=== PATIENT | male | born 1955 | race Caucasian/White ===

== ENCOUNTER → 2016-04-09 | Outpatient (CLI) | payer OTHER ==
[~2016-04-09] MED LIST: AMLO-110 PO; AMLO-114 PO; ASPCH81X PO; CARV6.252 PO; CEPH500C PO; CRG125 PO; CRG25 PO; CYCL10TA6 PO; FNTTP50 TOP; GABA1CAP5 PO; GLC/500 PO; GLIP-199 PO; HYDR-4079 PO; HYDR25TA4 PO; INSDGI SC; INSDGIPEN SC; LIDO2SOL17 TD; LISI40TA PO; LPT/20 PO; LSN20 PO; METF1TAB53 PO; NVLGI/PEN SC; NVLGIPEN SC; OXYC-106 PO; SIMV20TA2 PO
--- NOTE | 2016-04-09 12:34 | DIAGNOSTIC IMAGING REPORT ---
MRI OF THE RIGHT SHOULDER WITHOUT CONTRAST CLINICAL HISTORY: Right shoulder pain. Evaluate for rotator cuff tear. COMPARISON STUDY: MRI the right shoulder March 18, 2015 and right shoulder radiographs December 22, 2014. TECHNIQUE: Utilizing a 1.5 Cheryl magnet and dedicated coil, multiplanar, multiecho imaging of the right shoulder was performed without intravenous or intra-articular contrast. FINDINGS: Multiple foci of susceptibility artifact represent postsurgical change. Alignment of the right shoulder is anatomic. There is no fracture. No significant marrow edema or marrow replacement is present. There are subchondral cystic change within the greater tuberosity. There is moderate AC joint arthritis. There is mild right glenohumeral joint arthritis. A suspected anchor is noted along the proximal right humeral shaft for the long head of the biceps tendon. The more proximal long head biceps tendon is irregular with signal abnormality. This suggests tendinopathy with a tear which is at least high-grade partial thickness. The glenoid labrum is suboptimally assessed on this nonarthrogram exam but the superior and posterior labrum is truncated. This is similar to prior exam. There has been interval development of a full-thickness supraspinatus tear with 2 cm of tendon retraction. There is minimal muscular atrophy. There is tendinopathy of supraspinatus and infraspinatus. There is a high-grade partial-thickness tear of the distal infraspinatus along the articular surface. Teres minor is intact. Subscapularis is suboptimally assessed on this exam but there is no evidence for a full-thickness tear of subscapularis. There may be a partial thickness tear of subscapularis with fraying. No mass or fluid collection is shown. There is a small amount of fluid within the subacromial/subdeltoid bursa. IMPRESSION: 1. Interval development of a full-thickness supraspinatus tear with tendon retraction and minimal muscular atrophy. High grade partial-thickness distal infraspinatus tear. 2. Moderate right AC joint arthrosis and mild glenohumeral joint arthrosis. 3. Suspected tendinopathy with at least high-grade partial-thickness tear of the proximal long head of the biceps tendon. 4. Truncated posterior superior labrum which is similar to prior exam. Electronically signed by: Leighton Boothe M.D. 04/09/2016 12:33 PM Dictated Date/Time: 04/09/2016 12:23 PM
== END | disposition home or self-care (01) ==
LOC: C.MRIBC 10:40
PROVIDERS: ATTEND Orthopaedic Surgery
DX: M25.511 Pain in right shoulder (principal)

== ENCOUNTER → 2016-05-08 | Outpatient (CLI) | payer OTHER ==
[2016-05-08 12:09] LABS: BASO % 0.3 %; BASO ABS # 0.03 K/uL (0-0.2); COMPLETE YES; HEMATOCRIT 35.1 % (42-52); IG% 0.5 %; LYMPH % 14.9 %; LYMPH ABS # 1.37 K/uL (1.2-3.4); MEAN CELL VOLUME 82.6 fL (80-100); MEAN CORPUSCULAR HEMOGLOBIN 27.8 pg (25-34); MEAN CORPUSCULAR HGB CONC 33.6 g/dl (32-36); MEAN PLATELET VOLUME 10.4 fL (7.4-10.4); MONO % 9.6 %; NEUT % 70.7 %; PLATELET COUNT 308 K/uL (130-400); RED BLOOD COUNT 4.25 M/uL (4.7-6.1); WHITE BLOOD COUNT 9.17 K/uL (4.8-10.8)
[2016-05-08 12:43] LABS: BLOOD UREA NITROGEN 22 mg/dl (7-18); BUN/CREATININE RATIO 13.9 (10-20); CALCIUM 9.1 mg/dl (8.5-10.1); CARBON DIOXIDE 23 mmol/L (21-32); CHLORIDE 102 mmol/L (98-107); GLUCOSE 264 mg/dl (70-99); POTASSIUM 4.5 mmol/L (3.5-5.1); SODIUM 137 mmol/L (136-145)
== END | disposition home or self-care (01) ==
LOC: C.CPL 10:45
PROVIDERS: ATTEND Orthopaedic Surgery
DX: M75.121 Complete rotator cuff tear or rupture of right shoulder, not specified as traumatic (principal); Z01.812 Encounter for preprocedural laboratory examination; Z01.810 Encounter for preprocedural cardiovascular examination

== ENCOUNTER → 2016-05-23 | Day surgery (SDC) | payer OTHER ==
[2016-05-10 14:53] VITALS: BMI 31.0
[~2016-05-23] VITALS: Ht 188 cm; Wt 109.1 kg
[~2016-05-23] MED LIST changes: -AMLO-110 PO; -LIDO2SOL17 TD; +LIDOCAINE HCL 2% 2 ML VIAL (20MG/ML) ONE; +MIDAZOLAM HCL 1 MG/ML 2ML VIAL ONE; +ONDANSETRON INJ 2 MG/ML 2 ML VIAL ONE; +PROPOFOL IV EMULSION 10 MG/ML 20 ML VIAL IV ONE; -SIMV20TA2 PO; +SODIUM CHLORIDE 0.9% 500ML 500 ML IV ONE
[2016-05-23 10:06] VITALS: Ht 188 cm; Wt 109.1 kg
--- NOTE | 2016-05-23 11:47 | GI REPORT ---
Procedure Date: 05/23/2016 11:06 AM THIS REPORT HAS BEEN AMENDED Addendum Number: 1 Addendum Date: 05/23/2016 11:59:37 AM No specimens were collected during this procedure, and therefore, no pathology is pending. Repeat colonoscopy in 5 years. Procedure: Colonoscopy Indications: Screening for colorectal malignant neoplasm Medicines: Monitored Anesthesia Care Complications: No immediate complications. Estimated Blood Loss: Estimated blood loss: none. Procedure: Pre-Anesthesia Assessment: - Prior to the procedure, a History and Physical was performed, and patient medications and allergies were reviewed. The patient's tolerance of previous anesthesia was also reviewed. The risks and benefits of the procedure and the sedation options and risks were discussed with the patient. All questions were answered, and informed consent was obtained. Prior Anticoagulants: The patient has taken aspirin, last dose was 1 day prior to procedure. ASA Grade Assessment: III - A patient with severe systemic disease. After reviewing the risks and benefits, the patient was deemed in satisfactory condition to undergo the procedure. After I obtained informed consent, the scope was passed under direct vision. Throughout the procedure, the patient's blood pressure, pulse, and oxygen saturations were monitored continuously. The scope was introduced through the anus and advanced to the terminal ileum. The colonoscopy was performed without difficulty. The patient tolerated the procedure well. The quality of the bowel preparation was good. The ileocecal valve, appendiceal orifice, and rectum were photographed. Findings: Multiple small-mouthed diverticula were found in the sigmoid colon. Non-bleeding internal hemorrhoids were found during retroflexion. The hemorrhoids were small. Impression: - Diverticulosis in the sigmoid colon. - Non-bleeding internal hemorrhoids. - No specimens collected. Recommendation: - Resume previous diet. - Continue present medications. - Repeat colonoscopy for surveillance based on pathology results. - Return to primary care physician as previously scheduled. Scot Mira Gagnon, DO 05/23/2016 11:48:21 AM This report has been signed electronically. Note Initiated On: 05/23/2016 11:06 AM I attest to the content of the Intraoperative Record and orders documented therein, exceptions below Scot Meyers Kalin, DO 05/23/2016 12:00:50 PM This report has been signed electronically.
--- NOTE | 2016-05-23 11:50 | Endo History and Physical ---
History & Physical Date of Service: May 23, 2016. Chief Complaint: SCREENING Referring Physician: DR ANG History of Present Illness 60 yo CM who presents for screening colonoscopy. Past Medical History Diabetes, Hypertension Past Surgical History Hx Cardiac Surgery: No Hx Internal Defibrillator: No Hx Pacemaker: No Hx Abdominal Surgery: No Hx of Implantable Prosthesis: No Hx Post-Op Nausea and Vomiting: No Hx Cancer Surgery: No Hx Thoracic Surgery: No Hx Orthopedic: Yes (LEFT KNEE ARTHROSCOPY X 2, TRIGGER FINGER X 2,WRIST GANGLION CYSTS REMOVED ) Hx Urinary Tract Surgery: Yes (LITHOTRIPSY) Family History None Social History Smoking Status: Never Smoker Hx Substance Use: No Hx Alcohol Use: Yes (RARELY) Allergies Coded Allergies: NO KNOWN DRUG ALLERGIES (Verified Allergy, Unknown, ., 05/23/16) Current Medications Reported Home Medications Medications Dose Route/Sig Max Daily Dose Days Date Category Dose Instructions Glucophage Ext Rel (Metformin Hcl) 1,000 Mg Tab 1,000 Mg PO BID 05/10/16 Reported Zestril (Lisinopril) 40 Mg Tab 40 Mg PO QAM 05/10/16 Reported Lantus (Insulin Glargine) 100 Unit/Ml Inj 35 Units SC AMPM 05/10/16 Reported Percocet 10MG/325MG (Oxycodone/Acetaminophen) Tab 1 Tab PO Q6H PRN 05/10/16 Reported Hctz (Hydrochlorothiazide) 25 Mg Tab 25 Mg PO QAM 05/10/16 Reported Glipizide Er (Glipizide) 10 Mg Tab 1 Tab PO BID 90 05/10/16 Reported Neurontin (Gabapentin) 400 Mg Cap 1 Cap PO TID 30 05/10/16 Reported TAKES 1 TAB IN AM AND 1 IN AFTERNOON AND 2 TAB IN PM Coreg (Carvedilol) 6.25 Mg Tab 2 Tab PO BID 05/10/16 Reported Norvasc (Amlodipine Besylate) 10 Mg Tab 10 Mg PO QAM 05/10/16 Reported Aspirin Chewable (Aspirin) 81 Mg Chew 81 Mg PO QAM 03/30/15 Reported Vital Signs Weight (Kilograms): 109.09 Height (Feet): 6 Height (Inches): 2 Date Time Temp Pulse Resp B/P Pulse Ox O2 Delivery O2 Flow Rate FiO2 05/23/16 10:19 37 77 20 158/77 95 Room Air Physical Exam General Appearance: WD/WN, no apparent distress Respiratory/Chest: Auscultation: breath sounds normal Cardiovascular: Heart Auscultation: RRR Abdomen: Bowel Sounds: normal Inspection & Palpation: soft, non-distended, no tenderness, guarding & rebound Assessment and Plan Assessment: 60 yo CM who presents for screening colonoscopy. Plan: Proceed with colonoscopy.
--- NOTE | 2016-05-23 11:51 | Discharge Instructions ---
Endoscopy Patient Instructions Date / Procedure(s) Performed May 23, 2016. Colonoscopy Allergy Information Coded Allergies: NO KNOWN DRUG ALLERGIES (Verified Allergy, Unknown, ., 05/23/16) Discharge Date / Findings May 23, 2016. Diverticulosis Internal hemorrhoids Medication Instructions Stopped Medication(s): PT DOESN'T REMEMBER OK to resume all medications today as prescribed Reported Home Medications Medications Dose Route/Sig Max Daily Dose Days Date Category Dose Instructions Glucophage Ext Rel (Metformin Hcl) 1,000 Mg Tab 1,000 Mg PO BID 05/10/16 Reported Zestril (Lisinopril) 40 Mg Tab 40 Mg PO QAM 05/10/16 Reported Lantus (Insulin Glargine) 100 Unit/Ml Inj 35 Units SC AMPM 05/10/16 Reported Percocet 10MG/325MG (Oxycodone/Acetaminophen) Tab 1 Tab PO Q6H PRN 05/10/16 Reported Hctz (Hydrochlorothiazide) 25 Mg Tab 25 Mg PO QAM 05/10/16 Reported Glipizide Er (Glipizide) 10 Mg Tab 1 Tab PO BID 90 05/10/16 Reported Neurontin (Gabapentin) 400 Mg Cap 1 Cap PO TID 30 05/10/16 Reported TAKES 1 TAB IN AM AND 1 IN AFTERNOON AND 2 TAB IN PM Coreg (Carvedilol) 6.25 Mg Tab 2 Tab PO BID 05/10/16 Reported Norvasc (Amlodipine Besylate) 10 Mg Tab 10 Mg PO QAM 05/10/16 Reported Aspirin Chewable (Aspirin) 81 Mg Chew 81 Mg PO QAM 03/30/15 Reported Provider Instructions Activity Restrictions - No exercising or heavy lifting for 24 hours. - Do not drink alcohol the day of the procedure. - Do not drive a car or operate machinery until the day after the procedure. - Do not make any important decisions or sign important papers in 24 hours after the procedure. Following Day: - Return to full activity which may include returning to work/school. Diet Start your diet with liquids and light foods (jello, soup, juice, toast). Then eat your usual diet if not nauseated. Treatment For Common After Affects For mild abdominal pain, bloating, or excessive gas: - Rest - Eat lightly - Lie on right side Follow-Up Information Follow-up with DR ANG as scheduled Anesthesia Information What You Should Know You have had a procedure that required some medicine to reduce anxiety and discomfort. This treatment is called moderate sedation. After receiving the treatment, you may be sleepy, but you will be able to breathe on your own. The effects of the treatment may last for several hours. Follow these instructions along with Activity/Diet recommendations noted above: * Do NOT do anything where dizziness or clumsiness would be dangerous. * Rest quietly at home today, then you can be up and about tomorrow. * Have a responsible person stay with you the rest of today. * You may have had an I.V. today. If so, you may take the dressing off later today. Recommendations Call your doctor if: * Trouble breathing * Continuous vomiting for more than 24 hours * Temperature above 101 degrees * Severe abdominal pain or bloating * Pain not relieved by pain medicine ordered * There is increased drainage or redness from any incision * A large amount of rectal bleeding greater than 2-3 tablespoons. (If you had a polyp/s removed or have hemorrhoids, a small amount of blood - from the rectum is to be expected.) * You have any unanswered questions or concerns. IN THE EVENT OF A SERIOUS EMERGENCY, GO TO THE NEAREST EMERGENCY ROOM Your discharge instructions were prepared by provider Scot Gagnon. Patient Instructions Signature Page Leon Green Patient (or Guardian) Signature/Date: I have read and understand the instructions given to me by my caregivers. Caregiver/RN/Doctor Signature/Date: The above-named patient and/or guardian has received patient instructions on this date. + Original Patient Signature Page (only) stays with chart. Please make copy for patient.
[2016-05-23 12:19] VITALS: BP 160/85; PULSE 79; O2SAT 95
--- NOTE | 2016-05-23 15:18 | Anesthesiology Progress Note ---
Anesthesia Post Op Note Date & Time May 23, 2016 at 15:17 Vital Signs Pain Intensity: 0 Vital Signs Past 12 Hours Date Time Temp Pulse Resp B/P Pulse Ox O2 Delivery O2 Flow Rate FiO2 05/23/16 12:19 79 20 160/85 95 Room Air 05/23/16 12:04 78 20 154/82 95 Room Air 05/23/16 11:49 75 20 142/82 96 Room Air 05/23/16 10:19 37 77 20 158/77 95 Room Air Notes Mental Status: alert / awake / arousable, participated in evaluation Pt Amnestic to Procedure: Yes Nausea / Vomiting: adequately controlled Pain: adequately controlled Airway Patency, RR, SpO2: stable & adequate BP & HR: stable & adequate Hydration State: stable & adequate Anesthetic Complications: no major complications apparent
== END | disposition home or self-care (01) ==
LOC: C.GI 09:54
PROVIDERS: ATTEND Internal Medicine
DX: Z12.11 Encounter for screening for malignant neoplasm of colon (principal); K57.30 Diverticulosis of large intestine without perforation or abscess without bleeding; K64.8 Other hemorrhoids; Z79.4 Long term (current) use of insulin; Z98.890 Other specified postprocedural states; Z79.82 Long term (current) use of aspirin

== ENCOUNTER 2016-05-25 16:32 | Inpatient (IN) | payer OTHER ==
[~2016-05-25] VITALS: Ht 188 cm; Wt 108.6 kg
[~2016-05-25 16:32] MED LIST changes: -CEPH500C PO; -CRG125 PO; -CRG25 PO; -CYCL10TA6 PO; -FNTTP50 TOP; -GLC/500 PO; -HYDR-4079 PO; -INSDGIPEN SC; -LIDOCAINE HCL 2% 2 ML VIAL (20MG/ML) ONE; -LPT/20 PO; -LSN20 PO; -MIDAZOLAM HCL 1 MG/ML 2ML VIAL ONE; -NVLGI/PEN SC; -NVLGIPEN SC; -ONDANSETRON INJ 2 MG/ML 2 ML VIAL ONE; -PROPOFOL IV EMULSION 10 MG/ML 20 ML VIAL IV ONE; -SODIUM CHLORIDE 0.9% 500ML 500 ML IV ONE
[2016-05-25] MEDS ORDERED: LPT/20 PO (16:54)
[2016-05-25 17:16] LABS: HEMATOCRIT 33.8 % (42-52); MEAN CELL VOLUME 82.8 fL (80-100); MEAN CORPUSCULAR HEMOGLOBIN 27.7 pg (25-34); MEAN CORPUSCULAR HGB CONC 33.4 g/dl (32-36); MEAN PLATELET VOLUME 9.7 fL (7.4-10.4); PLATELET COUNT 312 K/uL (130-400); RED BLOOD COUNT 4.08 M/uL (4.7-6.1)
--- NOTE | 2016-05-25 17:21 | DIAGNOSTIC IMAGING REPORT ---
CHEST ONE VIEW PORTABLE CLINICAL HISTORY: sob dyspnea COMPARISON STUDY: 03/23/2015 FINDINGS: The bones soft tissues and hemidiaphragms are normal. The cardiomediastinal silhouette is normal. The lungs are clear. The pulmonary vasculature is normal. IMPRESSION: Negative chest. Electronically signed by: Jerald Rivera M.D. 05/25/2016 5:20 PM Dictated Date/Time: 05/25/2016 5:20 PM
[2016-05-25 17:34] LABS: BUN/CREATININE RATIO 11.1 (10-20); CALCIUM 8.7 mg/dl (8.5-10.1); CREATININE 1.5 mg/dl (0.60-1.40)
[2016-05-25 17:37] LABS: ALB/GLOB RATIO 0.9 (0.9-2)
[2016-05-25 17:54] LABS: BASO % 0.3 %; BASO ABS # 0.03 K/uL (0-0.2); COMPLETE YES; EOS % 3.3 %; IG% 0.6 %; LYMPH % 14.3 %; LYMPH ABS # 1.29 K/uL (1.2-3.4); MONO % 10.3 %; NEUT % 71.2 %
[2016-05-25 17:59] LABS: INR 0.9 (0.9-1.1); PARTIAL THROMBOPLASTIN RATIO 0.9
--- NOTE | 2016-05-25 18:13 | EMERGENCY ROOM VISIT NOTE ---
History First contact with patient: 17:01 Chief Complaint: SHORTNESS OF BREATH Stated Complaint: SOB Nursing Triage Summary: PT REPORTS SOB X2 WEEKS. LAST NIGHT SYMPTOMS WORSENED, PT VERBALIZES SOB AT REST, WHEEZY, UNABLE TO SLEEP, AND SWELLING IN LEGS. PT SAW PCP TODAY AND WAS SENT HERE FOR FURTHER EVAL. History of Present Illness The patient is a 60 year old male who presents to the Emergency Room with complaints of shortness of breath and leg swelling. The patient states that for the last 2 weeks. The patient states that he has significant dyspnea on exertion. He states that he has noticed bilateral extremity swelling off and on. He states that he just developed significant over the last several days right leg swelling. The patient states that he felt as though he was wheezing last night and had significant difficulty breathing. He states he had to sleep in a recliner. He rates his discomfort a 7/10. He denies any earache, sore throat, cough, fever. He denies any abdominal pain, nausea, vomiting, diarrhea. He denies any history of pulmonary disease. He denies any history of cardiac disease. He had a normal stress test one year ago. The patient states that his father had a myocardial infarction in his 50s. He states his mother had 2 myocardial infarctions and has had a blood clot in her leg. Review of Systems A 10 system review of systems was completed with positives and pertinent negatives listed in the HPI. Past Medical/Surgical History Medical Problems: (1) Diabetes mellitus (2) KAUR (dyspnea on exertion) (3) Fluid overload (4) HTN (hypertension) (5) Hypercholesterolemia Surgical Problems: (1) Status post lateral meniscus repair Social History Smoking Status: Never Smoker Drug Use: none Marital Status: Occupation Status: disabled Current/Historical Medications Scheduled Amlodipine (Norvasc), 10 MG PO QAM Aspirin (Aspirin Chewable), 81 MG PO QAM Atorvastatin (Atorvastatin Calcium), 20 MG PO QPM Carvedilol (Coreg), 2 TAB PO BID Gabapentin (Neurontin), 1 CAP PO TID Glipizide (Glipizide Er), 1 TAB PO BID Hydrochlorothiazide (Hctz), 25 MG PO QAM Insulin Glargine (Lantus), 35 UNITS SC AMPM Lisinopril (Zestril), 40 MG PO QAM Metformin Hcl (Glucophage Ext Rel), 1,000 MG PO BID Scheduled PRN Oxycodone/Acetaminophen 10MG/325MG (Percocet 10MG/325MG), 1 TAB PO Q6H PRN for Pain Allergies Coded Allergies: NO KNOWN DRUG ALLERGIES (Verified Allergy, Unknown, ., 05/25/16) Physical Exam Vital Signs Date Time Temp Pulse Resp B/P Pulse Ox O2 Delivery O2 Flow Rate FiO2 05/25/16 21:51 36.9 82 16 161/84 96 05/25/16 21:38 82 05/25/16 21:31 82 16 161/84 96 Room Air 05/25/16 20:04 83 16 142/72 94 Room Air 05/25/16 18:50 84 16 162/80 93 Room Air 05/25/16 17:54 82 22 171/80 93 Room Air 05/25/16 17:15 89 05/25/16 17:02 94 Room Air 05/25/16 16:35 36.9 94 24 177/79 94 Room Air Physical Exam VITALS: Vitals are noted on the nurse's note and reviewed by myself. Vital signs stable. The patient is afebrile. GENERAL: This is a 60-year-old male, in no acute distress, nondiaphoretic, well- developed well-nourished. SKIN: The patient has bilateral pitting edema to the lower extremities. There is no tenting of the skin. Capillary reflex less than 2 seconds. HEAD: Normocephalic atraumatic. EARS: The external ears are normal in appearance. EYES: Pupils equal round and reactive to light and accommodation. Conjunctivae without injection, sclerae without icterus. Extraocular movements intact. NOSE: Patent, turbinates without inflammation or discharge. MOUTH: Mucous membranes moist. Tonsils are not enlarged. Pharynx without erythema or exudate. Uvula midline. Airway patent. Tongue does not deviate. NECK: Supple without nuchal rigidity. No lymphadenopathy. No thyromegaly. Cervical spine is nontender. No JVD. HEART: Regular rate and rhythm. There is a very subtle murmur noted. LUNGS: Clear to auscultation bilaterally without wheezes, rales or rhonchi. No retractions or accessory muscle use. ABDOMEN: Positive bowel sounds x 4. Soft, nontender, without masses or organomegaly. MUSCULOSKELETAL: There is moderate bilateral lower extremity pitting edema Full range of motion in all extremities. No tenderness to palpation. Normal gait. Strength 5/5 throughout. NEURO: Patient was alert and oriented to person place and time. Normal sensation to light and sharp touch. Deep tendon reflexes 2+ throughout. No focal neurological deficits. Medical Decision & Procedures ER Provider Diagnostic Interpretation: BILATERAL LOWER EXTREMITY VENOUS DOPPLER HISTORY: Pain. Edema. lower leg pain and swelling COMPARISON STUDY: None. FINDINGS: There is normal compressibility, flow, and augmentation within the bilateral lower extremity deep venous systems. IMPRESSION: No DVT within the right or left lower extremity. CHEST ONE VIEW PORTABLE CLINICAL HISTORY: sob dyspnea COMPARISON STUDY: 03/23/2015 FINDINGS: The bones soft tissues and hemidiaphragms are normal. The cardiomediastinal silhouette is normal. The lungs are clear. The pulmonary vasculature is normal. IMPRESSION: Negative chest. Laboratory Results 05/25/16 16:55 Red Blood Count 4.08, Mean Corpuscular Volume 82.8, Mean Corpuscular Hemoglobin 27.7, Mean Corpuscular Hemoglobin Concent 33.4, Mean Platelet Volume 9.7, Neutrophils (%) (Auto) 71.2, Lymphocytes (%) (Auto) 14.3, Monocytes (%) (Auto) 10.3, Eosinophils (%) (Auto) 3.3, Basophils (%) (Auto) 0.3, Neutrophils # (Auto ) 6.40, Lymphocytes # (Auto) 1.29, Monocytes # (Auto) 0.93, Eosinophils # (Auto ) 0.30, Basophils # (Auto) 0.03 05/25/16 16:55 Test 05/25/16 16:55 05/25/16 21:20 White Blood Count 9.00 K/uL (4.8-10.8) Red Blood Count 4.08 M/uL (4.7-6.1) Hemoglobin 11.3 g/dL (14.0-18.0) Hematocrit 33.8 % (42-52) Mean Corpuscular Volume 82.8 fL (80-100) Mean Corpuscular Hemoglobin 27.7 pg (25-34) Mean Corpuscular Hemoglobin Concent 33.4 g/dl (32-36) Platelet Count 312 K/uL (130-400) Mean Platelet Volume 9.7 fL (7.4-10.4) Neutrophils (%) (Auto) 71.2 % Lymphocytes (%) (Auto) 14.3 % Monocytes (%) (Auto) 10.3 % Eosinophils (%) (Auto) 3.3 % Basophils (%) (Auto) 0.3 % Neutrophils # (Auto) 6.40 K/uL (1.4-6.5) Lymphocytes # (Auto) 1.29 K/uL (1.2-3.4) Monocytes # (Auto) 0.93 K/uL (0.11-0.59) Eosinophils # (Auto) 0.30 K/uL (0-0.5) Basophils # (Auto) 0.03 K/uL (0-0.2) RDW Standard Deviation 42.9 fL (36.4-46.3) RDW Coefficient of Variation 14.3 % (11.5-14.5) Immature Granulocyte % (Auto) 0.6 % Immature Granulocyte # (Auto) 0.05 K/uL (0.00-0.02) Red Blood Cell Morphology Unremarkable Prothrombin Time 10.0 SECONDS (9.0-12.0) Prothromb Time International Ratio 0.9 (0.9-1.1) Activated Partial Thromboplast Time 24.6 SECONDS (21.0-31.0) Partial Thromboplastin Ratio 0.9 D-Dimer 1230 ug/L FEU (0-500) Anion Gap 9.0 mmol/L (3-11) Est Creatinine Clear Calc Drug Dose 70.6 ml/min Estimated GFR () 57.8 Estimated GFR (Non- 49.9 BUN/Creatinine Ratio 11.1 (10-20) Calcium Level 8.7 mg/dl (8.5-10.1) Total Bilirubin 0.2 mg/dl (0.2-1) Aspartate Amino Transf (AST/SGOT) 21 U/L (15-37) Alanine Aminotransferase (ALT/SGPT) 36 U/L (12-78) Alkaline Phosphatase 69 U/L (45-117) Pro-B-Type Natriuretic Peptide 365 pg/ml (0-900) Total Protein 7.1 gm/dl (6.4-8.2) Albumin 3.4 gm/dl (3.4-5.0) Globulin 3.7 gm/dl (2.5-4.0) Albumin/Globulin Ratio 0.9 (0.9-2) Total Creatine Kinase 221 U/L (39-308) Creatine Kinase MB 5.3 ng/ml (0.5-3.6) Creatine Kinase MB Ratio 2.4 (0-3.0) Troponin I < 0.015 ng/ml (0-0.045) Medications Administered Medications (Trade) Dose Ordered Sig/Marko Route Start Time Stop Time Status Last Admin Dose Admin Furosemide (Lasix Inj) 40 mg NOW STAT IV 05/25/16 20:40 05/25/16 21:21 DC 05/25/16 21:34 40 MG Potassium Chloride (Klor-Con M10) 40 meq NOW STAT PO 05/25/16 20:40 05/25/16 21:21 DC 05/25/16 21:33 40 MEQ Procedure The patient was monitored on a groundwater monitoring technician. They maintained a normal sinus rhythm without ectopy. ECG Indication: SOB/dyspnea Rate (beats per minute): 89 Rhythm: normal sinus Findings: no acute ischemic change Change: no significant change ED Course The patient was seen and examined. Previous visits were reviewed. The patient does not have a fever or leukocytosis. He has a mild anemia. His creatinine is 1.5 which is close to his baseline. Troponin is not elevated. BNP is not elevated. INR is 0.9. D-dimer was elevated. Chest x-ray does not reveal any acute abnormality bilateral lower extremity venous Dopplers were negative for DVT the patient presents to the emergency department with dyspnea on exertion and orthopnea. The patient states he has also had bilateral extremity swelling. He does have fairly significant pitting edema. He does seem to have a very faint murmur on auscultation and states he does not recall any history of murmur. Although the d-dimer was elevated, his creatinine is also elevated at 1.5. At this time, CT of the chest for PE will be deferred. A VQ scan may be considered in the near future. This may represent heart failure. The patient denies any history of similar. The patient with benefit from further evaluation and management in the hospital. The case was discussed with Dr. Silva and he will evaluate the patient. The case was discussed with Dr. Azevedo who agrees with the assessment and treatment plan. Medical Decision DIFFERENTIAL DIAGNOSIS: Aortic dissection, myocarditis, pericarditis, cervical disc disease, costochondritis, herpes zoster, rib fracture, pleuritis, pneumonia , pulmonary embolus, tension pneumothorax, anxiety disorder, somatoform disorder , choledocholithiasis, status, esophagitis, esophageal spasm, esophageal reflux , esophageal rupture, pancreatitis, peptic ulcer disease, cardiac ischemia, ST elevation SC, acute coronary syndrome, arrhythmia, coronary artery vasospasm. vavular heart disease, coronary artery disease, among others. Impression Primary Impression: KAUR (dyspnea on exertion) Additional Impression: Lower extremity edema Departure Information Referrals Tran Harris DO (PCP) Patient Instructions [facility] Problem Qualifiers
--- NOTE | 2016-05-25 20:08 | DIAGNOSTIC IMAGING REPORT ---
BILATERAL LOWER EXTREMITY VENOUS DOPPLER HISTORY: Pain. Edema. lower leg pain and swelling COMPARISON STUDY: None. FINDINGS: There is normal compressibility, flow, and augmentation within the bilateral lower extremity deep venous systems. IMPRESSION: No DVT within the right or left lower extremity. Electronically signed by: Jerald Rivera M.D. 05/25/2016 8:06 PM Dictated Date/Time: 05/25/2016 8:06 PM
[2016-05-25] MEDS ORDERED: POTASSIUM CHLORIDE 10 MEQ TABCR PO STA (20:40)
[2016-05-25] MEDS ORDERED: FUROSEMIDE 40 MG/4 ML VIAL IV STA (20:40)
[2016-05-25] MEDS ORDERED: GLUCOSE 40% GEL 15 GM TUBE PO PRN (20:45)
[2016-05-25] MEDS ORDERED: ZOLPIDEM TARTRATE 5 MG TAB PO PRN (20:45)
[2016-05-25] MEDS ORDERED: ACETAMINOPHEN 325 MG TAB PO PRN (20:45)
[2016-05-25] MEDS ORDERED: GLUCAGON FOR INJ 1 MG VIAL SQ PRN (20:45)
[2016-05-25] MEDS ORDERED: DEXTROSE 50% 50 ML SYR IV PRN (20:45)
[2016-05-25] MEDS ORDERED: NITROGLYCERIN 0.4 MG SL PER TAB CHARGE SL PRN (20:45)
[2016-05-25] MEDS ORDERED: ONDANSETRON INJ 2 MG/ML 2 ML VIAL IV PRN (20:45)
[2016-05-25] MEDS ORDERED: GLUCOSE 10 TABS/TUBE PO PRN (20:45)
[2016-05-25 21:48] LABS: CKMB/CK RATIO 2.4 (0-3.0)
--- NOTE | 2016-05-25 21:59 | History and Physical ---
History & Physical Date & Time of Service: May 25, 2016 at 21:50 Chief Complaint: SOB Primary Care Physician: Tran Harris DO History of Present Illness Source: patient, spouse The patient is a 60-year-old male who presents emergency department with worsening leg swelling over the past 2 weeks and more recent development of shortness of breath with dyspnea on exertion especially worse today. His left leg has been swelling on and off for a while, the right leg began to swell for the past few days. He does not move also been wheezing last night. He does not sleep well due to pain from his right shoulder shoulder and pain on his left ear. He has no history of cardiac disease or asthma. He did have a respiratory infection months ago that did clear, and he thought his symptoms might be related to a recurrent infection, but he has no fevers, chills or productive cough. He does report a 12 pound weight gain over the past 2 weeks. He denies any excessive salt in his diet although he does not watch, and he has not been very physically active due to right shoulder pain and has a proposed upcoming surgery for rotator cuff repair. Past Medical/Surgical History Medical Problems: (1) Diabetes mellitus Status: Chronic (2) HTN (hypertension) Status: Chronic (3) Hypercholesterolemia Status: Chronic Surgical Problems: (1) Status post lateral meniscus repair Status: Resolved Social History Smoking Status: Never Smoker Smokeless Tobacco Use: No Alcohol Use: socially Drug Use: none Marital Status: Housing status: lives with family Occupational Status: disabled Multi-Drug Resistant Organisms History of MDRO: No Allergies Coded Allergies: NO KNOWN DRUG ALLERGIES (Verified Allergy, Unknown, ., 05/25/16) Home Medications Scheduled Amlodipine (Norvasc), 10 MG PO QAM Aspirin (Aspirin Chewable), 81 MG PO QAM Atorvastatin (Atorvastatin Calcium), 20 MG PO QPM Carvedilol (Coreg), 2 TAB PO BID Gabapentin (Neurontin), 1 CAP PO TID Glipizide (Glipizide Er), 1 TAB PO BID Hydrochlorothiazide (Hctz), 25 MG PO QAM Insulin Glargine (Lantus), 35 UNITS SC AMPM Lisinopril (Zestril), 40 MG PO QAM Metformin Hcl (Glucophage Ext Rel), 1,000 MG PO BID Scheduled PRN Oxycodone/Acetaminophen 10MG/325MG (Percocet 10MG/325MG), 1 TAB PO Q6H PRN for Pain Review of Systems The patient denies chest pain, palpitations, cough , vision change, hearing change, sore throat, fevers, chills, sweats, weight change, fatigue, nausea, vomiting, abdominal pain, pelvic pain, blood in urine or stool, dysuria, urinary frequency or urgency, lightheadedness, dizziness, headache, memory loss , rash, abnormal bruising or bleeding, imbalance, focal or generalized weakness , numbness or tingling in arms or legs, night sweats, or allergy symptoms. The review of systems is otherwise negative other than for that already noted above, and at least 10 systems have been reviewed. Physical Exam Vital Signs Date Time Temp Pulse Resp B/P Pulse Ox O2 Delivery O2 Flow Rate FiO2 05/25/16 21:38 82 05/25/16 21:31 82 16 161/84 96 Room Air 05/25/16 20:04 83 16 142/72 94 Room Air 05/25/16 18:50 84 16 162/80 93 Room Air 05/25/16 17:54 82 22 171/80 93 Room Air 05/25/16 17:15 89 05/25/16 17:02 94 Room Air 05/25/16 16:35 36.9 94 24 177/79 94 Room Air The patient is awake, well-developed and adequately nourished, alert and oriented 3, normocephalic and atraumatic, lying in bed and in no acute distress. HEENT--PERRL, EOMI, mucous membranes and oropharynx moist. Neck--supple, no JVD or bruits, thyroid normal, trachea midline, no adenopathy. Heart--normal S1 and S2, no extra beats, no murmurs, rubs or gallops. Lungs--clear bilaterally no respiratory distress, no accessory muscle use. Abdomen--normal bowel sounds and soft, nontender and nondistended, no hernias or masses, no organomegaly. Extremities--no cyanosis, clubbing. There is bilaterally 3+ pitting Edema. There are good distal pulses b/l. Dermatologic--normal skin turgor, normal color, warm and dry, no abnormal lymph nodes, no rash. Neurologic--cranial nerves II through XII grossly intact, motor and sensory examination normal. Rheumatologic--normal range of motion, nontender, muscles and joints. Psychiatric--normal affect. Diagnostics Laboratory Results Results Past 24 Hours Test 05/25/16 16:55 05/25/16 21:20 Range/Units White Blood Count 9.00 4.8-10.8 K/uL Red Blood Count 4.08 4.7-6.1 M/uL Hemoglobin 11.3 14.0-18.0 g/dL Hematocrit 33.8 42-52 % Mean Corpuscular Volume 82.8 80-100 fL Mean Corpuscular Hemoglobin 27.7 25-34 pg Mean Corpuscular Hemoglobin Concent 33.4 32-36 g/dl Platelet Count 312 130-400 K/uL Mean Platelet Volume 9.7 7.4-10.4 fL Neutrophils (%) (Auto) 71.2 % Lymphocytes (%) (Auto) 14.3 % Monocytes (%) (Auto) 10.3 % Eosinophils (%) (Auto) 3.3 % Basophils (%) (Auto) 0.3 % Neutrophils # (Auto) 6.40 1.4-6.5 K/uL Lymphocytes # (Auto) 1.29 1.2-3.4 K/uL Monocytes # (Auto) 0.93 0.11-0.59 K/uL Eosinophils # (Auto) 0.30 0-0.5 K/uL Basophils # (Auto) 0.03 0-0.2 K/uL RDW Standard Deviation 42.9 36.4-46.3 fL RDW Coefficient of Variation 14.3 11.5-14.5 % Immature Granulocyte % (Auto) 0.6 % Immature Granulocyte # (Auto) 0.05 0.00-0.02 K/uL Red Blood Cell Morphology Unremarkable Prothrombin Time 10.0 9.0-12.0 SECONDS Prothromb Time International Ratio 0.9 0.9-1.1 Activated Partial Thromboplast Time 24.6 21.0-31.0 SECONDS Partial Thromboplastin Ratio 0.9 D-Dimer 1230 0-500 ug/L FEU Sodium Level 141 136-145 mmol/L Potassium Level 4.0 3.5-5.1 mmol/L Chloride Level 105 98-107 mmol/L Carbon Dioxide Level 27 21-32 mmol/L Anion Gap 9.0 3-11 mmol/L Blood Urea Nitrogen 17 7-18 mg/dl Creatinine 1.50 0.60-1.40 mg/dl Est Creatinine Clear Calc Drug Dose 70.6 ml/min Estimated GFR () 57.8 Estimated GFR (Non- 49.9 BUN/Creatinine Ratio 11.1 10-20 Random Glucose 158 70-99 mg/dl Calcium Level 8.7 8.5-10.1 mg/dl Total Bilirubin 0.2 0.2-1 mg/dl Aspartate Amino Transf (AST/SGOT) 21 15-37 U/L Alanine Aminotransferase (ALT/SGPT) 36 12-78 U/L Alkaline Phosphatase 69 45-117 U/L Troponin I < 0.015 < 0.015 0-0.045 ng/ml Pro-B-Type Natriuretic Peptide 365 0-900 pg/ml Total Protein 7.1 6.4-8.2 gm/dl Albumin 3.4 3.4-5.0 gm/dl Globulin 3.7 2.5-4.0 gm/dl Albumin/Globulin Ratio 0.9 0.9-2 Total Creatine Kinase 221 39-308 U/L Creatine Kinase MB 5.3 0.5-3.6 ng/ml Creatine Kinase MB Ratio 2.4 0-3.0 Diagnostic Radiology Patient Name: JARRETT HILLMAN Unit Number: [id number] Dictated: 05/25/161719 Transcribed: 05/25/161719 MS Printed Date/Time: [~ rep prt dt]/[~ rep prt tm] [~ rep ct labl] - [~ rep ct ivnm] [facility] [place] [address] Dictated: 05/25/161719 Transcribed: 05/25/161719 MS Printed Date/Time: [~ rep prt dt]/[~ rep prt tm] [~ rep ct labl] - [~ rep ct ivnm] CHEST ONE VIEW PORTABLE CLINICAL HISTORY: sob dyspnea COMPARISON STUDY: 03/23/2015 FINDINGS: The bones soft tissues and hemidiaphragms are normal. The cardiomediastinal silhouette is normal. The lungs are clear. The pulmonary vasculature is normal. IMPRESSION: Negative chest. Electronically signed by: Jerald Rivera M.D. 05/25/2016 5:20 PM Dictated Date/Time: 05/25/2016 5:20 PM The status of this report is Signed. Draft = Not yet reviewed or approved by Radiologist. Signed = Reviewed and approved by Radiologist. <AttendingPhy></AttendingPhy> <FamilyPhy>Tran Harris, DO</FamilyPhy> < PrimaryPhy>Tran Harris, DO</PrimaryPhy> <UnitNumber>[id number]</UnitNumber > <VisitNumber>[id number]</VisitNumber> <PatientName>JARRETT HILLMAN</ PatientName> <DateOfBirth>1955</DateOfBirth> <Location>[facility]</Location> < ServiceDate>05/25/16</ServiceDate> <MNE>ESINDI</MNE> <OrderingPhy>ED, PROTOCOL</ OrderingPhy> <OrderingPhyMNE>f rep ord dr zimmerman</OrderingPhyMNE> <DictatingPhyMNE> f rep dict dr zimmerman</DictatingPhyMNE> <CCListMNE>f rep ct mne</CCListMNE> < AdmittingPhyMNE>f pt admit dr zimmerman</AdmittingPhyMNE> <AttendingPhyMNE>f pt attend dr zimmerman</AttendingPhyMNE> <ConsultingPhyMNE>f pt consult dr zimmerman</ConsultingPhyMNE> <FamilyPhyMNE>f pt fam dr zimmerman</FamilyPhyMNE> <OtherPhyMNE>f pt other dr zimmerman</OtherPhyMNE> < PrimaryPhyMNE>f pt prim care dr zimmerman</PrimaryPhyMNE> <ReferringPhyMNE>f pt referring dr zimmerman</ReferringPhyMNE> Patient Name: JARRETT HILLMAN Unit Number: [id number] Dictated: 05/25/162005 Transcribed: 05/25/162005 MS Printed Date/Time: [~ rep prt dt]/[~ rep prt tm] [~ rep ct labl] - [~ rep ct ivnm] [facility] [place] [place] [address] Dictated: 05/25/162005 Transcribed: 03/24/17 2006 MS Printed Date/Time: [~ rep prt dt]/[~ rep prt tm] [~ rep ct labl] - [~ rep ct ivnm] BILATERAL LOWER EXTREMITY VENOUS DOPPLER HISTORY: Pain. Edema. lower leg pain and swelling COMPARISON STUDY: None. FINDINGS: There is normal compressibility, flow, and augmentation within the bilateral lower extremity deep venous systems. IMPRESSION: No DVT within the right or left lower extremity. Electronically signed by: Jerald Rivera M.D. 05/25/2016 8:06 PM Dictated Date/Time: 05/25/2016 8:06 PM The status of this report is Signed. Draft = Not yet reviewed or approved by Radiologist. Signed = Reviewed and approved by Radiologist. <AttendingPhy></AttendingPhy> <FamilyPhy>Tran Harris DO</FamilyPhy> < PrimaryPhy>Tran Harris, DO</PrimaryPhy> <UnitNumber>[id number]</UnitNumber > <VisitNumber>[id number]</VisitNumber> <PatientName>JARRETT HILLMAN</ PatientName> <DateOfBirth>1955</DateOfBirth> <Location>C[facility]EDC</Location> < ServiceDate>05/25/16</ServiceDate> <MNE>ESINDI</MNE> <OrderingPhy>Allie Encinas PA-C</OrderingPhy> <OrderingPhyMNE>f rep ord dr zimmerman</OrderingPhyMNE > <DictatingPhyMNE>f rep dict dr zimmerman</DictatingPhyMNE> <CCListMNE>f rep ct mne</ CCListMNE> <AdmittingPhyMNE>f pt admit dr zimmerman</AdmittingPhyMNE> <AttendingPhyMNE >f pt attend dr zimmerman</AttendingPhyMNE> <ConsultingPhyMNE>f pt consult dr zimmerman</ConsultingPhyMNE> <FamilyPhyMNE>f pt fam dr zimmerman</FamilyPhyMNE> <OtherPhyMNE>f pt other dr zimmerman</OtherPhyMNE> < PrimaryPhyMNE>f pt prim care dr mne</PrimaryPhyMNE> <ReferringPhyMNE>f pt referring dr zimmerman</ReferringPhyMNE> EKG EKG shows normal sinus rhythm at 89 bpm, there are no acute ST-T changes. Impression Assessment and Plan Shortness of breath/lower extremity edema/12 pound weight gain--the patient will be admitted to the telemetry unit for serial cardiac enzymes, cardiac rhythm monitoring and a 2-D echocardiogram with Dopplers. We'll change amlodipine from 10 mg by mouth daily to 2.5 mg by mouth daily, change lisinopril 40 mg by mouth daily to 20 mg by mouth daily, stop HCTZ 25 mg by mouth daily, and increased carvedilol from 12.5 mg by mouth twice a day to 18.75 mg by mouth twice a day. Give Lasix 40 mg IV 1 tonight and potassium chloride 40 mEq by mouth 1 tonight. Continue aspirin chewable 81 mg by mouth every morning. Elevated d-dimer--CT angiogram done due to elevated creatinine. Lower extremity venous Dopplers were negative. We'll order a VQ scan to be done morning. Diabetes mellitus--hold metformin 1000 mg by mouth twice a day and do not resume unless his creatinine 1.4 or less(presently 1.5). Continue glipizide ER 10 mg by mouth twice a day and Lantus insulin 35 units subcutaneous twice a day. Place on Accu-Cheks before meals and at bedtime with NovoLog coverage. Hypercholesterolemia--continue atorvastatin 20 mg by mouth every afternoon. Peripheral neuropathy--continue gabapentin 400 mg by mouth 3 times a day. Right rotator cuff injury--consideration being given to a future surgery. Lumbar degenerative disc disease/chronic low back pain--stable. Level of Care Telemetry Advanced Directives Existing Advance Directive: No Existing Living Will: No Existing Power of Tire Bagger: No Resuscitation Status FULL RESUSCITATION VTE Prophylaxis VTE Risk Assessment Done? Y/N: Yes Risk Level: Moderate Given or contraindicated: SCD's Social Service Consult None Apply
[2016-05-25] MEDS: OXYCODONE/ACETAMINOPHEN 10/325MG TAB PO PRN (23:03)
[2016-05-25] MEDS: GABAPENTIN 400 MG CAP PO SCH (23:05)
[2016-05-25] MEDS: ATORVASTATIN 20 MG TAB PO SCH (23:05)
[2016-05-25] MEDS: CARVEDILOL 12.5 MG TAB PO SCH (23:05)
[2016-05-25] MEDS: INSULIN GLARGINE SOLOSTAR 100 UNITS/ML 3 ML PEN SC SCH (23:11)
[2016-05-25] MEDS: INSULIN ASPART 100 UNITS/ML 3 ML PEN SC SCH (23:11)
[2016-05-25 23:42] VITALS: BP 170/81; PULSE 90; TEMP 36.8; O2SAT 93; BMI 31.9
[2016-05-25 23:59] VITALS: O2SAT 93
[2016-05-26] VITALS (7 sets, daily range): BP systolic 132–147; BP diastolic 72–88; PULSE 70–79; TEMP 36.5–37; O2SAT 90–95
[2016-05-26 04:46] LABS: BASO % 0.2 %; BASO ABS # 0.02 K/uL (0-0.2); COMPLETE YES; EOS % 3.7 %; IG% 0.2 %; LYMPH % 23.4 %; MEAN CELL VOLUME 82.7 fL (80-100); MEAN CORPUSCULAR HEMOGLOBIN 27.7 pg (25-34); MEAN CORPUSCULAR HGB CONC 33.5 g/dl (32-36); MEAN PLATELET VOLUME 9.7 fL (7.4-10.4); MONO % 10.6 %; NEUT % 61.9 %; PLATELET COUNT 274 K/uL (130-400); RED BLOOD COUNT 3.75 M/uL (4.7-6.1); WHITE BLOOD COUNT 8.11 K/uL (4.8-10.8)
[2016-05-26 04:55] LABS: PARTIAL THROMBOPLASTIN RATIO 0.7; PROTHROMBIN TIME (PATIENT) 10.6 SECONDS (9.0-12.0)
[2016-05-26 05:04] LABS: ALT/SGPT 28 U/L (12-78); AST/SGOT 16 U/L (15-37); BLOOD UREA NITROGEN 18 mg/dl (7-18); BUN/CREATININE RATIO 11.7 (10-20); CALCIUM 8.9 mg/dl (8.5-10.1); CARBON DIOXIDE 31 mmol/L (21-32); CHLORIDE 107 mmol/L (98-107); GLUCOSE 92 mg/dl (70-99); MAGNESIUM 2.2 mg/dl (1.8-2.4); POTASSIUM 4.2 mmol/L (3.5-5.1); SODIUM 144 mmol/L (136-145)
[2016-05-26 05:09] LABS: ALKALINE PHOSPHATASE 59 U/L (45-117); CKMB/CK RATIO 2.1 (0-3.0)
[2016-05-26] MEDS: INSULIN ASPART 100 UNITS/ML 3 ML PEN SC SCH ×4 (08:19→20:13)
[2016-05-26] MEDS: OXYCODONE/ACETAMINOPHEN 10/325MG TAB PO PRN ×2 (08:21→14:20)
[2016-05-26] MEDS: AMLODIPINE BESYLATE 5 MG TAB PO SCH (08:21)
[2016-05-26] MEDS: GABAPENTIN 400 MG CAP PO SCH ×3 (08:21→20:10)
[2016-05-26] MEDS: LISINOPRIL 20 MG TAB PO SCH (08:22)
[2016-05-26] MEDS: ASPIRIN 81 MG ECTAB PO SCH (08:23)
[2016-05-26] MEDS: CARVEDILOL 12.5 MG TAB PO SCH ×2 (08:23→20:09)
[2016-05-26] MEDS: INSULIN GLARGINE SOLOSTAR 100 UNITS/ML 3 ML PEN SC SCH ×2 (08:27→20:11)
--- NOTE | 2016-05-26 12:50 | DIAGNOSTIC IMAGING REPORT ---
NUCLEAR PULMONARY VENTILATION/PERFUSION SCAN CLINICAL HISTORY: Dyspnea. Elevated d-dimer. COMPARISON STUDY: Chest x-ray dated 05/25/2016. TECHNIQUE: Initially, ventilation images of both lungs are obtained following the inhalation of 33 mCi of aerosolized technetium 99m DTPA. Subsequently, perfusion images of both lungs were obtained following the IV administration of 5.5 mCi of technetium 99m MAA. Ventilation and perfusion images were acquired in the anterior, posterior, and oblique projections. FINDINGS: A chest x-ray performed 05/25/2016 shows mild cardiac enlargement. No airspace consolidation or pleural effusion is seen. The ventilation of both lungs is normal and symmetric. No perfusion defects are identified on the perfusion imaging. IMPRESSION: Findings are considered low probability for pulmonary embolus. Electronically signed by: Pancho Fang M.D. 05/26/2016 12:49 PM Dictated Date/Time: 05/26/2016 12:48 PM
[2016-05-26 13:15] LABS: CKMB/CK RATIO 2.1 (0-3.0)
--- NOTE | 2016-05-26 13:50 | ECHOCARDIOGRAM REPORT ---
*NOTICE TO RECEIVING CONSTITUTION PARTY AGENCY This information is strictly Confidential and protected under [place] law. [place] law prohibits you from making any further disclosure of this information unless further disclosure is expressly permitted by the written consent of the person to whom it pertains or is authorized by law. A general authorization for the release of medical or other information is not sufficient for this purpose. Hospital accepts no responsibility if the information is made available to any other person, INCLUDING THE PATIENT. Interpretation Summary * Name: JARRETT HILLMAN Study Date: 05/26/2016 10:14 AM BP: 132/79 mmHg * Patient Location: .2T\S\S238\S\1 HR: 72 * : 1955 (M/d/yyyy) Gender: Male Height: 74 in * Age: 60 yrs Ethnicity: [place] Weight: 253 lb * Ordering Physician: Chano Maldonado * Performed By: Alma Hunter RDCS * * Reason For Study: Shortness of breath * BSA: 2.4 m2 * -- Conclusions -- * The left ventricle is normal in size. * There is moderate concentric left ventricular hypertrophy. * Ejection Fraction = 60-65%. * Left ventricular systolic function is normal. * The left ventricular wall motion is normal. * The right ventricle is normal in size and function. * The right ventricular systolic function is normal as assessed by tricuspid annular plane systolic excursion (TAPSE) (normal >1.5 cm). * Dilated inferior vena cava with reduced collapsability with sniff indicates an elevated right atrial pressure of 15 mmHg * Trivial pericardial effusion. * Indterminate E to e' ratio--can not exclude diastolic dysfunction Procedure Details * A complete two-dimensional transthoracic echocardiogram was performed (2D, M-mode, Doppler and color flow Doppler). Left Ventricle * The left ventricle is normal in size. * There is moderate concentric left ventricular hypertrophy. * Ejection Fraction = 60-65%. * Left ventricular systolic function is normal. * The left ventricular wall motion is normal. Right Ventricle * The right ventricle is normal in size and function. * The right ventricular systolic function is normal as assessed by tricuspid annular plane systolic excursion (TAPSE) (normal >1.5 cm). Atria * The left atrium is borderline dilated. * Right atrial size is normal. Mitral Valve * The mitral valve leaflets appear normal. There is no evidence of stenosis, fluttering, or prolapse. * There is trace mitral regurgitation. Tricuspid Valve * The tricuspid valve is not well visualized, but is grossly normal. * There is trace tricuspid regurgitation. Aortic Valve * The aortic valve is trileaflet. Pulmonic Valve * The pulmonic valve is not well seen, but is grossly normal. Great Vessels * The aortic root is normal size. Pericardium/Pleural * Trivial pericardial effusion. Great Vessels * Dilated inferior vena cava with reduced collapsability with sniff indicates an elevated right atrial pressure of 15 mmHg Left Ventricular Diastolic Function * Indterminate E to e' ratio--can not exclude diastolic dysfunction MMode 2D Measurements and Calculations IVSd 1.0 cm LVIDd 4.5 cm LVIDs 2.9 cm LVPWd 1.4 cm IVS/LVPW 0.74 FS 36.1 % EDV(Teich) 93.4 ml ESV(Teich) 31.9 ml EF(Teich) 65.9 % EDV(cubed) 92.3 ml ESV(cubed) 24.1 ml EF(cubed) 73.9 % LV mass(C)d 200.1 grams LV mass(C)dI 83.3 grams/m\S\2 CO(Teich) 4.0 l/min CI(Teich) 1.7 l/min/m\S\2 SV(Teich) 61.5 ml SI(Teich) 25.6 ml/m\S\2 CO(cubed) 4.4 l/min CI(cubed) 1.8 l/min/m\S\2 SV(cubed) 68.2 ml SI(cubed) 28.4 ml/m\S\2 Ao root diam 2.8 cm Ao root area 6.0 cm\S\2 ACS 2.2 cm LA dimension 3.4 cm asc Aorta Diam 2.8 cm LA/Ao 1.2 LVOT diam 2.0 cm LVOT area 3.0 cm\S\2 LVAd ap4 30.2 cm\S\2 LVLd ap4 8.5 cm EDV(MOD-sp4) 91.0 ml LVAs ap4 15.5 cm\S\2 LVLs ap4 6.2 cm ESV(MOD-sp4) 32.2 ml EF(MOD-sp4) 64.6 % LVAd ap2 30.0 cm\S\2 LVLd ap2 8.0 cm EDV(MOD-sp2) 94.7 ml LVAs ap2 15.2 cm\S\2 LVLs ap2 6.1 cm ESV(MOD-sp2) 32.2 ml EF(MOD-sp2) 66.0 % CO(MOD-sp4) 3.8 l/min CI(MOD-sp4) 1.6 l/min/m\S\2 SV(MOD-sp4) 58.8 ml SI(MOD-sp4) 24.5 ml/m\S\2 CO(MOD-sp2) 4.1 l/min CI(MOD-sp2) 1.7 l/min/m\S\2 SV(MOD-sp2) 62.5 ml SI(MOD-sp2) 26.0 ml/m\S\2 Doppler Measurements and Calculations MV E max judy 108.2 cm/sec MV A max judy 66.9 cm/sec MV E/A 1.6 MV dec time 0.20 sec Ao V2 max 126.0 cm/sec Ao max PG 6.4 mmHg Ao max PG (full) 3.1 mmHg VASILE(V,A) 2.2 cm\S\2 VASILE(V,D) 2.2 cm\S\2 LV V1 max PG 3.3 mmHg LV V1 max 90.2 cm/sec PA acc slope 838.5 cm/sec\S\2 PA acc time 0.08 sec PA pr(Accel) 42.6 mmHg
--- NOTE | 2016-05-26 16:35 | Hospitalist Progress Note ---
Hospitalist Progress Note Date of Service May 26, 2016. Subjective Pt evaluation today including: conversation w/ patient, conversation w/ family patient with unexplained weight gain of 12 lbs and shortness of breath and wheezing. All Other Systems: Reviewed and Negative Objective Vital Signs Date Time Temp Pulse Resp B/P Pulse Ox O2 Delivery O2 Flow Rate FiO2 05/26/16 16:00 Room Air 05/26/16 15:02 36.7 70 20 133/72 95 Room Air 05/26/16 12:30 36.5 76 20 140/86 95 Room Air 05/26/16 12:00 Room Air 05/26/16 08:00 Room Air 05/26/16 07:03 36.7 71 18 144/79 90 Room Air 05/26/16 05:19 36.8 72 18 132/79 92 05/26/16 04:00 Room Air 05/25/16 23:59 93 Room Air 05/25/16 23:42 36.8 90 20 170/81 93 Room Air 05/25/16 21:51 36.9 82 16 161/84 96 05/25/16 21:38 82 05/25/16 21:31 82 16 161/84 96 Room Air 05/25/16 20:04 83 16 142/72 94 Room Air 05/25/16 18:50 84 16 162/80 93 Room Air 05/25/16 17:54 82 22 171/80 93 Room Air 05/25/16 17:15 89 05/25/16 17:02 94 Room Air 05/25/16 16:35 36.9 94 24 177/79 94 Room Air Physical Exam General Appearance: WD/WN, no apparent distress Eyes: normal inspection, sclerae normal ENT: hearing grossly normal Neck: trachea midline Respiratory/Chest: lungs clear Cardiovascular: regular rate, rhythm Abdomen: normal bowel sounds, non tender, soft Extremities: normal inspection Neurologic/Psychiatric: alert, normal mood/affect Laboratory Results Last 24 Hours Test 05/25/16 16:55 05/25/16 21:20 05/25/16 22:38 05/26/16 04:40 White Blood Count 9.00 K/uL 8.11 K/uL Red Blood Count 4.08 M/uL 3.75 M/uL Hemoglobin 11.3 g/dL 10.4 g/dL Hematocrit 33.8 % 31.0 % Mean Corpuscular Volume 82.8 fL 82.7 fL Mean Corpuscular Hemoglobin 27.7 pg 27.7 pg Mean Corpuscular Hemoglobin Concent 33.4 g/dl 33.5 g/dl Platelet Count 312 K/uL 274 K/uL Mean Platelet Volume 9.7 fL 9.7 fL Neutrophils (%) (Auto) 71.2 % 61.9 % Lymphocytes (%) (Auto) 14.3 % 23.4 % Monocytes (%) (Auto) 10.3 % 10.6 % Eosinophils (%) (Auto) 3.3 % 3.7 % Basophils (%) (Auto) 0.3 % 0.2 % Neutrophils # (Auto) 6.40 K/uL 5.01 K/uL Lymphocytes # (Auto) 1.29 K/uL 1.90 K/uL Monocytes # (Auto) 0.93 K/uL 0.86 K/uL Eosinophils # (Auto) 0.30 K/uL 0.30 K/uL Basophils # (Auto) 0.03 K/uL 0.02 K/uL RDW Standard Deviation 42.9 fL 43.0 fL RDW Coefficient of Variation 14.3 % 14.2 % Immature Granulocyte % (Auto) 0.6 % 0.2 % Immature Granulocyte # (Auto) 0.05 K/uL 0.02 K/uL Red Blood Cell Morphology Unremarkable Prothrombin Time 10.0 SECONDS 10.6 SECONDS Prothromb Time International Ratio 0.9 1.0 Activated Partial Thromboplast Time 24.6 SECONDS 19.1 SECONDS Partial Thromboplastin Ratio 0.9 0.7 D-Dimer 1230 ug/L FEU Sodium Level 141 mmol/L 144 mmol/L Potassium Level 4.0 mmol/L 4.2 mmol/L Chloride Level 105 mmol/L 107 mmol/L Carbon Dioxide Level 27 mmol/L 31 mmol/L Anion Gap 9.0 mmol/L 6.0 mmol/L Blood Urea Nitrogen 17 mg/dl 18 mg/dl Creatinine 1.50 mg/dl 1.50 mg/dl Est Creatinine Clear Calc Drug Dose 70.6 ml/min 69.9 ml/min Estimated GFR () 57.8 57.8 Estimated GFR (Non- 49.9 49.9 BUN/Creatinine Ratio 11.1 11.7 Random Glucose 158 mg/dl 92 mg/dl Calcium Level 8.7 mg/dl 8.9 mg/dl Total Bilirubin 0.2 mg/dl 0.2 mg/dl Aspartate Amino Transf (AST/SGOT) 21 U/L 16 U/L Alanine Aminotransferase (ALT/SGPT) 36 U/L 28 U/L Alkaline Phosphatase 69 U/L 59 U/L Troponin I < 0.015 ng/ml < 0.015 ng/ml < 0.015 ng/ml Pro-B-Type Natriuretic Peptide 365 pg/ml Total Protein 7.1 gm/dl 6.5 gm/dl Albumin 3.4 gm/dl 3.1 gm/dl Globulin 3.7 gm/dl Albumin/Globulin Ratio 0.9 Total Creatine Kinase 221 U/L 163 U/L Creatine Kinase MB 5.3 ng/ml 3.5 ng/ml Creatine Kinase MB Ratio 2.4 2.1 Bedside Glucose 206 mg/dl Magnesium Level 2.2 mg/dl Direct Bilirubin < 0.1 mg/dl Test 05/26/16 11:20 05/26/16 12:40 Bedside Glucose 166 mg/dl Total Creatine Kinase 143 U/L Creatine Kinase MB 3.0 ng/ml Creatine Kinase MB Ratio 2.1 Troponin I < 0.015 ng/ml Assessment and Plan (1) Fluid overload Assessment & Plan: Echo with normal EF and concentric LVH will ask Dr. Horta to see (2) HTN (hypertension) Assessment & Plan: could consider changing to ARB for lvh (3) Hypercholesterolemia (4) Diabetes mellitus (5) Lower extremity edema no dvt
[2016-05-26] MEDS ORDERED: FUROSEMIDE 40 MG/4 ML VIAL IV STA (16:44)
[2016-05-26] MEDS ORDERED: FUROSEMIDE INJ 40 MG in SYRINGE 0 ML IV STA (16:52)
--- NOTE | 2016-05-26 17:44 | CARDIOLOGY CONSULTATION ---
DATE OF CONSULTATION: 05/26/2016 REQUESTING: Vamsi Colunga MD. GENERAL OPERATIONS AGENT: Eric Horta D.O., [facility]. REASON FOR CONSULTATION: Significant weight gain, right-sided heart failure, shortness of breath and dyspnea on exertion. Dear Dr. Valle: Thank you for requesting cardiology consultation on Leon with regards to his progressive shortness of breath, lower extremity edema and weight gain. As you know, he is a pleasant 60-year-old gentleman who unfortunately has significant orthopedic issues with chronic low back pain. If he leans forward, he gets weakness in his legs and his hips and he notes he can at times barely walk a half a block. He notes if he walks in a store, leaning over the cart makes his pain worse and he can walk short distance and then needs to stop. He notes with the snowstorm 10 days ago he did try to shovel snow. He attempted 3 attempts and with that he had significant shortness of breath and had to stop. He has noted increasing abdominal distention, his pants feeling tighter, worsening lower extremity edema. He denies any orthopnea. He denies any chest pain, chest pressure, chest heaviness with activity. He does sleep in bed. He has been using higher doses of pain medication and he notes that with this his describes him snoring more. He denies any lightheadedness, dizziness, presyncope or syncope. His appetite has been relatively stable. Unfortunately, he does consume a fair amount salt, they are having significant financial struggles and with that they have been eating canned vegetables and heavily processed food. He denies any bleeding, bruising, dark stools, black stools, fevers, chills, sweats, cough, productive sputum. He does describe an episode last summer where he had a skin infection, after that he had some shortness of breath, it lasted about 2 weeks and then improved. The rest of review of systems is otherwise negative. PAST MEDICAL HISTORY: 1. Longstanding diabetes mellitus since 1997. 2. Longstanding hypertension for approximately 15 years. 3. Hypercholesterolemia. 4. Status post lateral meniscus repair. 5. Chronic low back pain secondary to osteoarthritis. 6. Chronic right shoulder discomfort. 7. Chronic kidney disease, stage 3. SOCIAL HISTORY: He denies any smoking, although he uses chewing tobacco and uses a can every 3 days and has done this for a very long period of time. He denies any significant alcohol. 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 He is . FAMILY HISTORY: Noncontributory. PHYSICAL EXAMINATION: GENERAL: He is awake, alert, oriented x3. He is in no acute distress. VITAL SIGNS: His heart rate is 70, blood pressure 133/72, his sats 95% on room air. HEENT: His carotid upstrokes did feel mildly reduced. There were no carotid bruits. His sclerae are anicteric. His jugular venous pressure cannot be assessed due to his neck size. LUNGS: Clear to auscultation bilaterally. No rales, rhonchi or wheezing. HEART: Regular rate and rhythm. No appreciable murmurs, rubs or gallops. ABDOMEN: Firm, distended. Positive bowel sounds. Nontender. EXTREMITIES: No clubbing or cyanosis. He has mild to moderate bilateral lower extremity edema to the mid tibia bilaterally. PSYCHIATRIC: His affect appeared appropriate. NEUROLOGIC: He is awake, alert and oriented x3. He does have peripheral neuropathy. EKG: Normal sinus rhythm. Low voltage QRS, no acute ST-T changes, no Q-waves. Echocardiogram moderate left ventricular hypertrophy, although with preserved left ventricular systolic function and no obvious regional wall motion abnormalities. His ventricle looks stiff and he probably has at least type 2 diastolic dysfunction and his right atrial pressures were elevated. LABORATORY STUDIES: Hemoglobin 10.4, platelet count of 274. Troponins are negative x2. His BNP was normal. Sodium 144, potassium 4.2, BUN 18, creatinine 1.5. Lung scan, low probability for pulmonary embolism. Venous Doppler, no DVT. IMPRESSION: 1. Acute on chronic probably diastolic heart failure. 2. Moderate concentric left ventricular hypertrophy, possibly related to longstanding hypertension and diabetes, but I would exclude other causes including multiple myeloma and hemochromatosis. 3. Shortness of breath, possibly related to heart failure, possibly related to obstructive coronary artery disease. He has no regional wall motion abnormalities and troponins are negative, but he has multiple risk factors for coronary artery disease. 4. Hypertension. 5. Chronic kidney disease. 6. Hyperlipidemia. PLAN: I recommended giving him an additional dose of IV Lasix 40 mg tonight. He has had a nice diuresis and another 40 mg tomorrow and at that point we can reassess and determine if we can switch him over to oral diuretics. He probably has another 10 pounds or so of water weight to lose. I would add SPEP and UPEP as well as iron studies and a ferritin to rule out other causes of diastolic dysfunction. It is unlikely he has multiple myeloma as his albumin is low and so is his total protein. I would check a UA to r/o proteinuria and nephrotic syndrome given his long standing DM. At this point, I agree with reducing his amlodipine as it may help with some of his lower extremity edema. His carvedilol has been increased and if his heart rate and blood pressure allow this can be increased to 25 mg b.i.d., especially to help with his diastolic dysfunction. Additionally, will have to watch his creatinine with lisinopril and if he needs additional blood pressure medication in addition to his diuretics we may need to consider hydralazine. We discussed a low-salt diet and daily weights. Unfortunately, given his financial situation they are consuming higher amount of processed foods and canned vegetables. We will continue to follow him with you. It does not sound like he has sleep apnea from what he describes but he looks like he might have sleep apnea which could also exacerbate any potential right-sided heart failure. Thank you for allowing us to participate in his care. VALERI
[2016-05-26 18:08] LABS: URINE APPEARANCE CLEAR (CLEAR); URINE BILIRUBIN NEG (NEG); URINE COLOR YELLOW; URINE EPITHELIAL CELL AUTO 0-5 /lpf (0-5); URINE NITRITE NEG (NEG); URINE PH 6.5 (4.5-7.5); URINE SPECIFIC GRAVITY 1.013 (1.000-1.030); UROBILINOGEN NEG (NEG)
[2016-05-26 18:14] LABS: MANUAL MICROSCOPIC REQUIRED? NO; REVIEW REQ? NO
[2016-05-26 18:36] LABS: BUN/CREATININE RATIO 12.7 (10-20); CALCIUM 8.8 mg/dl (8.5-10.1); CREATININE 1.6 mg/dl (0.60-1.40); POTASSIUM 4.1 mmol/L (3.5-5.1)
[2016-05-26] MEDS: ATORVASTATIN 20 MG TAB PO SCH (20:09)
[2016-05-27] VITALS (8 sets, daily range): BP systolic 116–152; BP diastolic 68–78; PULSE 70–74; TEMP 36.7–37; O2SAT 91–96
[2016-05-27] MEDS: OXYCODONE/ACETAMINOPHEN 10/325MG TAB PO PRN ×3 (05:32→17:44)
[2016-05-27 06:46] LABS: BASO % 0.2 %; BASO ABS # 0.02 K/uL (0-0.2); COMPLETE YES; EOS % 3.7 %; HEMATOCRIT 34.8 % (42-52); IG% 0.2 %; LYMPH % 16.2 %; LYMPH ABS # 1.36 K/uL (1.2-3.4); MEAN CELL VOLUME 82.5 fL (80-100); MEAN CORPUSCULAR HEMOGLOBIN 27.3 pg (25-34); MEAN PLATELET VOLUME 10.2 fL (7.4-10.4); MONO % 9.9 %; NEUT % 69.8 %; PLATELET COUNT 298 K/uL (130-400); RED BLOOD COUNT 4.22 M/uL (4.7-6.1); WHITE BLOOD COUNT 8.39 K/uL (4.8-10.8)
[2016-05-27 06:55] LABS: PARTIAL THROMBOPLASTIN RATIO 0.9; PROTHROMBIN TIME (PATIENT) 10.6 SECONDS (9.0-12.0)
[2016-05-27] MEDS: INSULIN ASPART 100 UNITS/ML 3 ML PEN SC SCH ×4 (07:00→20:52)
[2016-05-27 07:18] LABS: ALT/SGPT 34 U/L (12-78); AST/SGOT 23 U/L (15-37); BLOOD UREA NITROGEN 19 mg/dl (7-18); BUN/CREATININE RATIO 12.9 (10-20); CALCIUM 9.3 mg/dl (8.5-10.1); CARBON DIOXIDE 29 mmol/L (21-32); CHLORIDE 104 mmol/L (98-107); GLUCOSE 87 mg/dl (70-99); MAGNESIUM 2.2 mg/dl (1.8-2.4); SODIUM 142 mmol/L (136-145)
[2016-05-27 07:21] LABS: ALKALINE PHOSPHATASE 66 U/L (45-117)
[2016-05-27] MEDS: GABAPENTIN 400 MG CAP PO SCH ×3 (07:53→19:25)
[2016-05-27] MEDS: AMLODIPINE BESYLATE 5 MG TAB PO SCH (07:54)
[2016-05-27] MEDS: ASPIRIN 81 MG ECTAB PO SCH (07:54)
[2016-05-27] MEDS: LISINOPRIL 20 MG TAB PO SCH (07:54)
[2016-05-27] MEDS: CARVEDILOL 12.5 MG TAB PO SCH ×2 (07:55→19:23)
[2016-05-27] MEDS: INSULIN GLARGINE SOLOSTAR 100 UNITS/ML 3 ML PEN SC SCH ×2 (07:57→19:28)
[2016-05-27] MEDS ORDERED: FUROSEMIDE INJ 40 MG in SYRINGE 0 ML IV SCH ×2 (09:00→21:00)
--- NOTE | 2016-05-27 11:08 | Cardiology Follow-Up ---
Subjective General Date of Service: May 27, 2016. Pt evaluation today including: conversation w/ patient, chart review, lab review, review of studies, conversation w/ farm consultant History of Present Illness The patient is a 60 year old male Allergies Coded Allergies: NO KNOWN DRUG ALLERGIES (Verified Allergy, Unknown, ., 05/25/16) Social History Smoking Status: Unknown if Ever Smoked Hx Tobacco Use In Past Year?: Yes (SNUFF) Hx Alcohol Use - Type And Amou: Yes (2X MONTH ) Hx Substance Use - Type And Am: No Problem List Medical Problems: (1) Lower extremity edema Status: Acute Review of Systems Respiratory: + dyspnea on exertion, + shortness of breath, No cough, No dyspnea at rest Cardiac: + edema, No chest pain, No palpitations Additional ROS Details: feeling better Physical Exam Vital Signs Last Vital Signs Documentation Date Time Temp Pulse Resp B/P Pulse Ox O2 Delivery O2 Flow Rate FiO2 05/27/16 08:00 Room Air 05/27/16 07:51 36.7 74 16 116/73 94 Physical Exam Constitutional: General Apperance: obese Level of Distress: NAD Lungs: Respiratory effort: good air movement Auscultation: breath sounds normal, no wheezing, no rales/crackles, no rhonchi Cardiovascular: Heart Auscultation: RRR, no murmurs, no rubs, no gallops Abdomen: Bowel Sounds: normal Inspection & Palpation: distended, pertinent finding (firm but better) Extremities: edema (mild) Assessment and Plan Assessment and Plan IMPRESSION: 1. Acute on chronic probably diastolic heart failure. 2. Moderate concentric left ventricular hypertrophy, possibly related to longstanding hypertension and diabetes 3. Shortness of breath, possibly related to diastolic and right sided heart failure, possibly related to obstructive coronary artery disease. He has no regional wall motion abnormalities and troponins are negative, but he has multiple risk factors for coronary artery disease. 4. Hypertension. 5. Chronic kidney disease (VICE PRESIDENT 1.5). 6. Hyperlipidemia. 7. 2+ proteinuria Iron and ferritin normal 2+ protein lasix extra dose this PM; VICE PRESIDENT stable so far SBP much improved SPEP and UPEP Pending d/w nephrology Laboratory Results Last 24 Hours Test 05/26/16 11:20 05/26/16 12:40 05/26/16 16:15 05/26/16 17:25 Bedside Glucose 166 mg/dl 132 mg/dl Total Creatine Kinase 143 U/L Creatine Kinase MB 3.0 ng/ml Creatine Kinase MB Ratio 2.1 Troponin I < 0.015 ng/ml Urine Color YELLOW Urine Appearance CLEAR Urine pH 6.5 Urine Specific [place] 1.013 Urine Protein 2+ Urine Glucose (UA) NEG Urine Ketones NEG Urine Occult Blood NEG Urine Nitrite NEG Urine Bilirubin NEG Urine Urobilinogen NEG Urine Leukocyte Esterase NEG Urine WBC (Auto) 0 /hpf Urine RBC (Auto) 0-4 /hpf Urine Hyaline Casts (Auto) 0 /lpf Urine Epithelial Cells (Auto) 0-5 /lpf Urine Bacteria (Auto) NEG Test 05/26/16 17:50 05/26/16 20:13 05/27/16 06:09 05/27/16 06:42 Sodium Level 137 mmol/L 142 mmol/L Potassium Level 4.1 mmol/L 4.0 mmol/L Chloride Level 102 mmol/L 104 mmol/L Carbon Dioxide Level 27 mmol/L 29 mmol/L Anion Gap 8.0 mmol/L 9.0 mmol/L Blood Urea Nitrogen 20 mg/dl 19 mg/dl Creatinine 1.60 mg/dl 1.50 mg/dl Est Creatinine Clear Calc Drug Dose 65.6 ml/min 69.5 ml/min Estimated GFR () 53.5 57.8 Estimated GFR (Non- 46.1 49.9 BUN/Creatinine Ratio 12.7 12.9 Random Glucose 158 mg/dl 87 mg/dl Calcium Level 8.8 mg/dl 9.3 mg/dl Iron Level 43 mcg/dl Ferritin 96.0 ng/ml Bedside Glucose 163 mg/dl 98 mg/dl White Blood Count 8.39 K/uL Red Blood Count 4.22 M/uL Hemoglobin 11.5 g/dL Hematocrit 34.8 % Mean Corpuscular Volume 82.5 fL Mean Corpuscular Hemoglobin 27.3 pg Mean Corpuscular Hemoglobin Concent 33.0 g/dl Platelet Count 298 K/uL Mean Platelet Volume 10.2 fL Neutrophils (%) (Auto) 69.8 % Lymphocytes (%) (Auto) 16.2 % Monocytes (%) (Auto) 9.9 % Eosinophils (%) (Auto) 3.7 % Basophils (%) (Auto) 0.2 % Neutrophils # (Auto) 5.85 K/uL Lymphocytes # (Auto) 1.36 K/uL Monocytes # (Auto) 0.83 K/uL Eosinophils # (Auto) 0.31 K/uL Basophils # (Auto) 0.02 K/uL RDW Standard Deviation 42.4 fL RDW Coefficient of Variation 14.2 % Immature Granulocyte % (Auto) 0.2 % Immature Granulocyte # (Auto) 0.02 K/uL Prothrombin Time 10.6 SECONDS Prothromb Time International Ratio 1.0 Activated Partial Thromboplast Time 24.2 SECONDS Partial Thromboplastin Ratio 0.9 Magnesium Level 2.2 mg/dl Total Bilirubin 0.2 mg/dl Direct Bilirubin < 0.1 mg/dl Aspartate Amino Transf (AST/SGOT) 23 U/L Alanine Aminotransferase (ALT/SGPT) 34 U/L Alkaline Phosphatase 66 U/L Total Protein 7.0 gm/dl Albumin 3.3 gm/dl
--- NOTE | 2016-05-27 11:53 | Nephrology Consultation ---
Nephrology Consultation Date & Providers Date of Consultation: May 27, 2016. Primary Care Provider: Tran Harris DO Referring Provider: Reason for Consultation Chronic kidney disease, proteinuria History of Present Illness Mr. Leon Green is a 60-year-old male who was seen and evaluated this morning at the request of Dr. Horta. Mr. Green has chronic kidney disease class III. Baseline creatinine ranges from 1.5 - 1.8 mg/dL. He has albuminuria quantified at 835 mg/gm in April 2015. He has a significant history of poorly controlled diabetes mellitus and hypertension. He has never previously seen a health advocate. Medical history is also notable for significant orthopedic complications from osteoarthritis. He denies significant NSAID use. Notes from the EMR including Dr. Harris (PCP) were reviewed in detail today. Mr. Green was admitted to [facility] with significant weight gain (~16 lbs in the past month), edema, shortness of breath and notable activity limiting dyspnea with exertion. Cardiology was consulted. Transthoracic echocardiogram documenting concentric LVH with LVEF 60%, evidence of diastolic CHF, no significant valvular heart disease. The patient has responded well to diuretics. Leon denies any foamy urine. He has no urinary complaints. He does not have orthopnea. He denies chest pain. He has a remote history of nephrolithiasis. Past Medical/Surgical History Medical: -- Diabetes mellitus II, uncontrolled. Hemoglobin A1c 9.9 in April. Associated retinopathy and neuropathy. DM diagnosed in 1997. -- Hypertension difficult to control. Diagnosed > 15 years ago. Not previously on a diuretic. -- Chronic kidney disease class III (baseline creatinine 1.5-1.8) -- Osteoarthritis -- Obesity -- Sacroiliitis -- Dyslipidemia Surgical: -- Knee arthroscopy with meniscal repair -- Lithotripsy -- Scheduled for upcoming shoulder arthroscopy Allergies Coded Allergies: NO KNOWN DRUG ALLERGIES (Verified Allergy, Unknown, ., 05/25/16) Inpatient Medications Current Inpatient Medications Medications (Trade) Dose Ordered Sig/Marko Route Start Time Stop Time Status Last Admin Dose Admin Acetaminophen (Tylenol Tab) 650 mg Q4H PRN PO 05/25/16 20:45 06/24/16 20:44 Zolpidem Tartrate (Ambien Tab) 5 mg HSZ PRN PO 05/25/16 20:45 06/24/16 20:44 Nitroglycerin (Nitrostat Tab) 0.4 mg UD PRN SL 05/25/16 20:45 06/24/16 20:44 Amlodipine Besylate (Norvasc Tab) 2.5 mg QAM PO 05/26/16 09:00 06/25/16 08:59 05/27/16 07:54 2.5 MG Aspirin (Ecotrin Tab) 81 mg QAM PO 05/26/16 09:00 06/25/16 08:59 05/27/16 07:54 81 MG Atorvastatin Calcium (Lipitor Tab) 20 mg QPM PO 05/25/16 21:00 06/24/16 20:59 05/26/16 20:09 20 MG Carvedilol (Coreg Tab) 18.75 mg BID PO 05/25/16 21:00 06/24/16 20:59 05/27/16 07:55 18.75 MG Gabapentin (Neurontin Cap) 400 mg TID PO 05/25/16 21:00 06/24/16 20:59 05/27/16 07:53 400 MG Insulin Glargine (Lantus Solostar Pen) 35 unit BID SC 05/25/16 21:00 06/24/16 20:59 05/27/16 07:57 35 UNIT Lisinopril (Zestril Tab) 20 mg QAM PO 05/26/16 09:00 06/25/16 08:59 05/27/16 07:54 20 MG Oxycodone/ Acetaminophen (Percocet 10-325MG Tab) 1 tab Q6H PRN PO 05/25/16 20:45 06/08/16 20:44 05/27/16 05:32 1 TAB Glipizide (GlipiZIDE EXTENDED REL TAB) 10 mg BIDM PO 05/26/16 07:30 06/25/16 07:59 05/27/16 07:56 10 MG Ondansetron HCl (Zofran Inj) 4 mg Q6H PRN IV 05/25/16 20:45 06/24/16 20:44 Insulin Aspart (novoLOG ASPART) SLIDING SCALE If C... ACHS SC 05/25/16 21:00 06/24/16 20:59 05/25/16 23:11 2 UNITS Glucose (Glucose 40% Gel) UD PRN PO 05/25/16 20:45 06/24/16 20:44 Glucose (Glucose Chew Tab) 1 tabs UD PRN PO 05/25/16 20:45 06/24/16 20:44 Dextrose (Dextrose 50% 50ML Syringe) 50 ml UD PRN IV 05/25/16 20:45 06/24/16 20:44 Glucagon 1 mg 1 mg UD PRN SQ 05/25/16 20:45 06/24/16 20:44 Furosemide/Syringe (Lasix Inj/ Syringe) 4 ml @ 4 mls/min BID IV 05/27/16 21:00 06/26/16 20:59 UNV Social History Smoking Status: Unknown if Ever Smoked Smokeless Tobacco Use: No Alcohol Use: socially Drug Use: none Marital Status: Housing Status: lives with family Occupation: disabled Review of Systems A complete review of systems was performed. Pertinent positives are noted above. All other systems are negative. Physical Exam Date Time Temp Pulse Resp B/P Pulse Ox O2 Delivery O2 Flow Rate FiO2 05/27/16 08:00 Room Air 05/27/16 07:51 36.7 74 16 116/73 94 Room Air 05/27/16 04:11 91 Room Air 05/27/16 03:40 36.7 72 16 139/76 93 Room Air 05/27/16 00:08 91 Room Air 05/26/16 22:50 37.0 75 16 142/78 93 Room Air 05/26/16 20:00 91 Room Air 05/26/16 19:31 36.8 79 18 147/88 91 Room Air 05/26/16 16:00 Room Air 05/26/16 15:02 36.7 70 20 133/72 95 Room Air 05/26/16 12:30 36.5 76 20 140/86 95 Room Air 05/26/16 12:00 Room Air General Appearance: WD/WN, no apparent distress, + obese Head: normocephalic, atraumatic Eyes: normal inspection, sclerae normal ENT: normal ENT inspection, pharynx normal Neck: supple, no JVD Respiratory/Chest: lungs clear, no respiratory distress, no accessory muscle use Cardiovascular: regular rate, rhythm, no gallop, no murmur Abdomen/GI: non tender, soft, + distended Back: normal inspection Extremities/Musculoskelatal: normal inspection, + pedal edema Neurologic/Psych: alert, oriented x 3 Laboratory Results Last 24 Hours Test 05/26/16 12:40 05/26/16 16:15 05/26/16 17:25 05/26/16 17:50 Total Creatine Kinase 143 U/L Creatine Kinase MB 3.0 ng/ml Creatine Kinase MB Ratio 2.1 Troponin I < 0.015 ng/ml Bedside Glucose 132 mg/dl Urine Color YELLOW Urine Appearance CLEAR Urine pH 6.5 Urine Specific [place] 1.013 Urine Protein 2+ Urine Glucose (UA) NEG Urine Ketones NEG Urine Occult Blood NEG Urine Nitrite NEG Urine Bilirubin NEG Urine Urobilinogen NEG Urine Leukocyte Esterase NEG Urine WBC (Auto) 0 /hpf Urine RBC (Auto) 0-4 /hpf Urine Hyaline Casts (Auto) 0 /lpf Urine Epithelial Cells (Auto) 0-5 /lpf Urine Bacteria (Auto) NEG Sodium Level 137 mmol/L Potassium Level 4.1 mmol/L Chloride Level 102 mmol/L Carbon Dioxide Level 27 mmol/L Anion Gap 8.0 mmol/L Blood Urea Nitrogen 20 mg/dl Creatinine 1.60 mg/dl Est Creatinine Clear Calc Drug Dose 65.6 ml/min Estimated GFR () 53.5 Estimated GFR (Non- 46.1 BUN/Creatinine Ratio 12.7 Random Glucose 158 mg/dl Calcium Level 8.8 mg/dl Iron Level 43 mcg/dl Ferritin 96.0 ng/ml Test 05/26/16 20:13 05/27/16 06:09 05/27/16 06:42 05/27/16 11:11 Bedside Glucose 163 mg/dl 98 mg/dl 213 mg/dl White Blood Count 8.39 K/uL Red Blood Count 4.22 M/uL Hemoglobin 11.5 g/dL Hematocrit 34.8 % Mean Corpuscular Volume 82.5 fL Mean Corpuscular Hemoglobin 27.3 pg Mean Corpuscular Hemoglobin Concent 33.0 g/dl Platelet Count 298 K/uL Mean Platelet Volume 10.2 fL Neutrophils (%) (Auto) 69.8 % Lymphocytes (%) (Auto) 16.2 % Monocytes (%) (Auto) 9.9 % Eosinophils (%) (Auto) 3.7 % Basophils (%) (Auto) 0.2 % Neutrophils # (Auto) 5.85 K/uL Lymphocytes # (Auto) 1.36 K/uL Monocytes # (Auto) 0.83 K/uL Eosinophils # (Auto) 0.31 K/uL Basophils # (Auto) 0.02 K/uL RDW Standard Deviation 42.4 fL RDW Coefficient of Variation 14.2 % Immature Granulocyte % (Auto) 0.2 % Immature Granulocyte # (Auto) 0.02 K/uL Prothrombin Time 10.6 SECONDS Prothromb Time International Ratio 1.0 Activated Partial Thromboplast Time 24.2 SECONDS Partial Thromboplastin Ratio 0.9 Sodium Level 142 mmol/L Potassium Level 4.0 mmol/L Chloride Level 104 mmol/L Carbon Dioxide Level 29 mmol/L Anion Gap 9.0 mmol/L Blood Urea Nitrogen 19 mg/dl Creatinine 1.50 mg/dl Est Creatinine Clear Calc Drug Dose 69.5 ml/min Estimated GFR () 57.8 Estimated GFR (Non- 49.9 BUN/Creatinine Ratio 12.9 Random Glucose 87 mg/dl Calcium Level 9.3 mg/dl Magnesium Level 2.2 mg/dl Total Bilirubin 0.2 mg/dl Direct Bilirubin < 0.1 mg/dl Aspartate Amino Transf (AST/SGOT) 23 U/L Alanine Aminotransferase (ALT/SGPT) 34 U/L Alkaline Phosphatase 66 U/L Total Protein 7.0 gm/dl Albumin 3.3 gm/dl Impression (1) Chronic kidney disease, stage III (moderate) (2) Proteinuria (3) Diastolic CHF, acute (4) HTN (hypertension) (5) Fluid overload (6) Diabetes mellitus Mr. Leon Green is a 60 year-old male with CKD III A3 (baseline creatinine 1.5-1.8 mg/dL). CKD consistent with diabetic nephropathy and likely hypertensive nephrosclerosis. He is mildly hypoalbuminemic. I cannot exclude paraproteinemia. He does have mild chronic anemia. He is not hypercalcemic to suggest myeloma. TTE notable for concentric LVH, diastolic dysfunction. Infiltrative cardiac disease not excluded. I would suggest obtaining a renal ultrasound. Check SPEP/immunofixation and UPEP. Repeat quantification of urine protein excretion with a random sample at this time. The patient is maintained on a statin, daily aspirin and an yin inhibitor. I would suggest increasing lisinopril to 40 mg daily. Will hold amlodipine will increasing lisinopril and consider increasing carvedilol and stopping amlodipine. Recommendations -- Increase lisinopril to 40 mg daily -- Hold amlodipine -- Check SPEP/immunofix and UPEP -- Check random UPCR -- Sodium restrict diet to 2 grams daily -- Check renal US -- Continue furosemide as ordered to encourage net negative fluid balance; document I/O's and daily weight -- Repeat metabolic profile tomorrow AM
[2016-05-27 14:29] LABS: URINE PROTIEN/CREAT RATIO 1.1 (0-0.2)
--- NOTE | 2016-05-27 16:15 | DIAGNOSTIC IMAGING REPORT ---
RENAL ULTRASOUND CLINICAL HISTORY: Chronic kidney disease. Proteinuria. COMPARISON STUDY: None. TECHNIQUE: Sonography of the kidneys and the urinary bladder was performed. FINDINGS: The right kidney measures 11.3 x 5.8 x 6.2 cm and the left measures 11.7 x 6.3 x 6.4 cm. There is no hydronephrosis. This study is mildly compromised by suboptimal penetration. No calculi or masses are identified. Renal echogenicity, size and cortical thickness are normal. Both ureteral jets were identified. Interval note was made of fatty infiltration of the liver. IMPRESSION: Unremarkable sonographic appearance of the kidneys. No hydronephrosis. Electronically signed by: Leighton Boothe M.D. 05/27/2016 4:14 PM Dictated Date/Time: 05/27/2016 4:12 PM
[2016-05-27] MEDS: ATORVASTATIN 20 MG TAB PO SCH (19:25)
--- NOTE | 2016-05-27 20:21 | Hospitalist Progress Note ---
Hospitalist Progress Note Date of Service May 27, 2016. Subjective patient feels better All Other Systems: Reviewed and Negative Medications Medications (Trade) Dose Ordered Sig/Marko Route Start Time Stop Time Status Last Admin Dose Admin Furosemide/Syringe (Lasix Inj/ Syringe) 4 ml @ 4 mls/min DAILY IV 05/27/16 09:00 05/27/16 11:09 DC 05/27/16 07:56 4 MLS/MIN Objective Vital Signs Date Time Temp Pulse Resp B/P Pulse Ox O2 Delivery O2 Flow Rate FiO2 05/27/16 18:40 37.0 74 18 152/75 96 Room Air 05/27/16 16:00 Room Air 05/27/16 15:01 36.9 70 19 118/68 95 Room Air 05/27/16 12:00 Room Air 05/27/16 11:36 37.0 74 16 142/78 93 Room Air 05/27/16 08:00 Room Air 05/27/16 07:51 36.7 74 16 116/73 94 Room Air 05/27/16 04:11 91 Room Air 05/27/16 03:40 36.7 72 16 139/76 93 Room Air 05/27/16 00:08 91 Room Air 05/26/16 22:50 37.0 75 16 142/78 93 Room Air Physical Exam General Appearance: WD/WN, no apparent distress Eyes: sclerae normal Neck: supple, trachea midline Respiratory/Chest: lungs clear, normal breath sounds Cardiovascular: regular rate, rhythm, + pertinent finding (positive lower extremity edema improving) Laboratory Results Last 24 Hours Test 05/27/16 06:09 05/27/16 06:42 05/27/16 11:11 05/27/16 12:10 White Blood Count 8.39 K/uL Red Blood Count 4.22 M/uL Hemoglobin 11.5 g/dL Hematocrit 34.8 % Mean Corpuscular Volume 82.5 fL Mean Corpuscular Hemoglobin 27.3 pg Mean Corpuscular Hemoglobin Concent 33.0 g/dl Platelet Count 298 K/uL Mean Platelet Volume 10.2 fL Neutrophils (%) (Auto) 69.8 % Lymphocytes (%) (Auto) 16.2 % Monocytes (%) (Auto) 9.9 % Eosinophils (%) (Auto) 3.7 % Basophils (%) (Auto) 0.2 % Neutrophils # (Auto) 5.85 K/uL Lymphocytes # (Auto) 1.36 K/uL Monocytes # (Auto) 0.83 K/uL Eosinophils # (Auto) 0.31 K/uL Basophils # (Auto) 0.02 K/uL RDW Standard Deviation 42.4 fL RDW Coefficient of Variation 14.2 % Immature Granulocyte % (Auto) 0.2 % Immature Granulocyte # (Auto) 0.02 K/uL Prothrombin Time 10.6 SECONDS Prothromb Time International Ratio 1.0 Activated Partial Thromboplast Time 24.2 SECONDS Partial Thromboplastin Ratio 0.9 Sodium Level 142 mmol/L Potassium Level 4.0 mmol/L Chloride Level 104 mmol/L Carbon Dioxide Level 29 mmol/L Anion Gap 9.0 mmol/L Blood Urea Nitrogen 19 mg/dl Creatinine 1.50 mg/dl Est Creatinine Clear Calc Drug Dose 69.5 ml/min Estimated GFR () 57.8 Estimated GFR (Non- 49.9 BUN/Creatinine Ratio 12.9 Random Glucose 87 mg/dl Calcium Level 9.3 mg/dl Magnesium Level 2.2 mg/dl Total Bilirubin 0.2 mg/dl Direct Bilirubin < 0.1 mg/dl Aspartate Amino Transf (AST/SGOT) 23 U/L Alanine Aminotransferase (ALT/SGPT) 34 U/L Alkaline Phosphatase 66 U/L Total Protein 7.0 gm/dl Albumin 3.3 gm/dl Bedside Glucose 98 mg/dl 213 mg/dl Urine Random Creatinine 33.0 mg/dl Urine Random Total Protein 35.0 mg/dl Urine Protein/Creatinine Ratio 1.1 Test 05/27/16 16:22 Bedside Glucose 134 mg/dl Assessment and Plan (1) Congestive heart failure (CHF) Assessment & Plan: Cardiology and nephrology help appreciated. Titrating diuretics and bp meds. (2) Fluid overload (3) HTN (hypertension) Assessment & Plan: lisinopril and coreg being adjusted follow bun/creatine (4) Hypercholesterolemia (5) Diabetes mellitus (6) Lower extremity edema no dvt Problem Qualifiers (1) Congestive heart failure (CHF): Congestive heart failure type: diastolic Congestive heart failure chronicity: acute Qualified Codes: I50.31 - Acute diastolic (congestive) heart failure
[2016-05-28] VITALS (9 sets, daily range): BP systolic 105–119; BP diastolic 62–72; PULSE 64–73; TEMP 36.3–37.1; O2SAT 93–97
[2016-05-28] MEDS: OXYCODONE/ACETAMINOPHEN 10/325MG TAB PO PRN ×4 (00:02→20:56)
[2016-05-28 06:00] LABS: BASO % 0.3 %; BASO ABS # 0.03 K/uL (0-0.2); COMPLETE YES; EOS % 4.3 %; HEMATOCRIT 35.4 % (42-52); IG% 0.3 %; LYMPH % 22.4 %; LYMPH ABS # 1.92 K/uL (1.2-3.4); MEAN CELL VOLUME 84.1 fL (80-100); MEAN CORPUSCULAR HEMOGLOBIN 27.8 pg (25-34); MEAN CORPUSCULAR HGB CONC 33.1 g/dl (32-36); MEAN PLATELET VOLUME 10.1 fL (7.4-10.4); MONO % 12.8 %; NEUT % 59.9 %; PLATELET COUNT 313 K/uL (130-400); RED BLOOD COUNT 4.21 M/uL (4.7-6.1); WHITE BLOOD COUNT 8.58 K/uL (4.8-10.8)
[2016-05-28 06:24] LABS: PARTIAL THROMBOPLASTIN RATIO 0.9; PROTHROMBIN TIME (PATIENT) 10.8 SECONDS (9.0-12.0)
[2016-05-28 06:27] LABS: ALT/SGPT 34 U/L (12-78); BLOOD UREA NITROGEN 26 mg/dl (7-18); BUN/CREATININE RATIO 15.5 (10-20); CALCIUM 9.1 mg/dl (8.5-10.1); CARBON DIOXIDE 31 mmol/L (21-32); CHLORIDE 100 mmol/L (98-107); GLUCOSE 59 mg/dl (70-99); MAGNESIUM 2.1 mg/dl (1.8-2.4); POTASSIUM 3.7 mmol/L (3.5-5.1); SODIUM 140 mmol/L (136-145)
[2016-05-28 06:30] LABS: ALKALINE PHOSPHATASE 68 U/L (45-117); AST/SGOT 28 U/L (15-37)
[2016-05-28] MEDS: ASPIRIN 81 MG ECTAB PO SCH (08:07)
[2016-05-28] MEDS: CARVEDILOL 12.5 MG TAB PO SCH ×2 (08:07→20:57)
[2016-05-28] MEDS: GABAPENTIN 400 MG CAP PO SCH ×3 (08:07→20:57)
[2016-05-28] MEDS: LISINOPRIL 20 MG TAB PO SCH (08:07)
[2016-05-28] MEDS: INSULIN ASPART 100 UNITS/ML 3 ML PEN SC SCH ×4 (08:12→20:59)
[2016-05-28] MEDS: INSULIN GLARGINE SOLOSTAR 100 UNITS/ML 3 ML PEN SC SCH ×2 (08:13→21:08)
--- NOTE | 2016-05-28 08:47 | Cardiology Follow-Up ---
Subjective General Date of Service: May 28, 2016. Pt evaluation today including: conversation w/ patient, chart review, lab review, review of studies, conversation w/ industry consultant History of Present Illness The patient is a 60 year old male Allergies Coded Allergies: NO KNOWN DRUG ALLERGIES (Verified Allergy, Unknown, ., 05/25/16) Social History Smoking Status: Unknown if Ever Smoked Hx Tobacco Use In Past Year?: Yes (SNUFF) Hx Alcohol Use - Type And Amou: Yes (2X MONTH ) Hx Substance Use - Type And Am: No Problem List Medical Problems: (1) Lower extremity edema Status: Acute Review of Systems Respiratory: No cough, No dyspnea at rest, No dyspnea on exertion, No shortness of breath Cardiac: No chest pain, No edema, No palpitations Physical Exam Vital Signs Last Vital Signs Documentation Date Time Temp Pulse Resp B/P Pulse Ox O2 Delivery O2 Flow Rate FiO2 05/28/16 07:22 36.4 64 18 116/72 96 Room Air Physical Exam Constitutional: General Apperance: obese Level of Distress: NAD Lungs: Respiratory effort: good air movement Auscultation: breath sounds normal, no wheezing, no rales/crackles, no rhonchi Cardiovascular: Heart Auscultation: RRR, no murmurs, no rubs, no gallops Abdomen: Bowel Sounds: normal Inspection & Palpation: distended, pertinent finding (firm but better) Extremities: no edema Assessment and Plan Assessment and Plan IMPRESSION: 1. Acute on chronic probably diastolic heart failure. 2. Moderate concentric left ventricular hypertrophy, possibly related to longstanding hypertension and diabetes 3. Shortness of breath, possibly related to diastolic and right sided heart failure, possibly related to obstructive coronary artery disease. He has no regional wall motion abnormalities and troponins are negative, but he has multiple risk factors for coronary artery disease. 4. Hypertension. 5. Chronic kidney disease (Baseline TUBE AND MANIFOLD BUILDER 1.5). 6. Hyperlipidemia. 7. 2+ proteinuria Iron and ferritin normal 2+ protein SPEP and UPEP Pending Held Am lasix given increase in lisinopril and bump in TUBE [employer] MANIFOLD BUILDER start tomorrow if TUBE AND MANIFOLD BUILDER ok --40mg lasix daily needs CHF education, discussed scale at home and daily weight will need outpt stress testing when stable from CHF standpoint given long standing DM Laboratory Results Last 24 Hours Test 05/27/16 11:11 05/27/16 12:10 05/27/16 16:22 05/27/16 20:13 Bedside Glucose 213 mg/dl 134 mg/dl 148 mg/dl Urine Random Creatinine 33.0 mg/dl Urine Random Total Protein 35.0 mg/dl Urine Protein/Creatinine Ratio 1.1 Test 05/28/16 05:26 05/28/16 06:52 05/28/16 07:11 White Blood Count 8.58 K/uL Red Blood Count 4.21 M/uL Hemoglobin 11.7 g/dL Hematocrit 35.4 % Mean Corpuscular Volume 84.1 fL Mean Corpuscular Hemoglobin 27.8 pg Mean Corpuscular Hemoglobin Concent 33.1 g/dl Platelet Count 313 K/uL Mean Platelet Volume 10.1 fL Neutrophils (%) (Auto) 59.9 % Lymphocytes (%) (Auto) 22.4 % Monocytes (%) (Auto) 12.8 % Eosinophils (%) (Auto) 4.3 % Basophils (%) (Auto) 0.3 % Neutrophils # (Auto) 5.13 K/uL Lymphocytes # (Auto) 1.92 K/uL Monocytes # (Auto) 1.10 K/uL Eosinophils # (Auto) 0.37 K/uL Basophils # (Auto) 0.03 K/uL RDW Standard Deviation 43.7 fL RDW Coefficient of Variation 14.3 % Immature Granulocyte % (Auto) 0.3 % Immature Granulocyte # (Auto) 0.03 K/uL Prothrombin Time 10.8 SECONDS Prothromb Time International Ratio 1.0 Activated Partial Thromboplast Time 24.6 SECONDS Partial Thromboplastin Ratio 0.9 Sodium Level 140 mmol/L Potassium Level 3.7 mmol/L Chloride Level 100 mmol/L Carbon Dioxide Level 31 mmol/L Anion Gap 9.0 mmol/L Blood Urea Nitrogen 26 mg/dl Creatinine 1.70 mg/dl Est Creatinine Clear Calc Drug Dose 61.3 ml/min Estimated GFR () 49.7 Estimated GFR (Non- 42.9 BUN/Creatinine Ratio 15.5 Random Glucose 59 mg/dl Calcium Level 9.1 mg/dl Magnesium Level 2.1 mg/dl Total Bilirubin 0.3 mg/dl Direct Bilirubin < 0.1 mg/dl Aspartate Amino Transf (AST/SGOT) 28 U/L Alanine Aminotransferase (ALT/SGPT) 34 U/L Alkaline Phosphatase 68 U/L Total Protein 6.8 gm/dl Albumin 3.1 gm/dl Bedside Glucose 62 mg/dl 97 mg/dl
--- NOTE | 2016-05-28 11:51 | Nephrology Progress Note ---
Nephrology Progress Note Date of Service May 28, 2016. Chief Complaint Follow up evaluation of CKD and proteinuria Subjective Mr. Green was seen & examined in his hospital room this morning. He was admitted to the hospital for management of CHF. Cardiology was consulted. Transthoracic echocardiogram documenting concentric LVH with LVEF 60%, evidence of diastolic CHF, no significant valvular heart disease. Mr. Green reports that he has responded well to diuretic therapy. His breathing and lower extremity edema are improved. The patient has AODM > 8 years. No retinopathy. Outpatient glycemic control has been poor. Hgb A1c has been elevated. Mr. Green has CKD w/ baseline creatinine 1.5 - 1.8. He has had proteinuria ( ~ 800 mg 04/19). He has not had nephrology evaluation prior to this hospitalization. He has a remote h/o kidney stones Review of Systems Constitutional: No fever Cardiovascular: No chest pain Respiratory: No dyspnea at rest Abdomen: No nausea, No pain, No vomiting Extremities: No leg edema A complete review of systems was performed. Pertinent positives are noted above. All other systems are negative. Vital Signs Last 8 Hrs Date Time Temp Pulse Resp B/P Pulse Ox O2 Delivery O2 Flow Rate FiO2 05/28/16 08:00 Room Air 05/28/16 07:22 36.4 64 18 116/72 96 Room Air 05/28/16 04:08 96 Room Air I & O 24-Hour Column 05/28/16 08:00 Intake Total 1965 ml Output Total 4000 ml Balance -2035 ml Last Recorded Weight Weight (Kilograms): 108.800 Physical Exam General Appearance: no apparent distress Head: normocephalic, atraumatic Eyes: PERRL, EOMI Neck: supple, no adenopathy Respiratory/Chest: lungs clear, no respiratory distress Cardiovascular: regular rate, rhythm Abdomen/GI: normal bowel sounds, non tender, soft Extremities/Musculoskelatal: no calf tenderness, no pedal edema Neurologic/Psych: alert, oriented x 3 Social History Smokeless Tobacco Use: No Alcohol Use: socially Drug Use: none Marital Status: Housing Status: lives with family Occupation: disabled Laboratory Results Past 24 Hours 05/28/16 05:26 Red Blood Count 4.21, Mean Corpuscular Volume 84.1, Mean Corpuscular Hemoglobin 27.8, Mean Corpuscular Hemoglobin Concent 33.1, Mean Platelet Volume 10.1, Neutrophils (%) (Auto) 59.9, Lymphocytes (%) (Auto) 22.4, Monocytes (%) (Auto) 12.8, Eosinophils (%) (Auto) 4.3, Basophils (%) (Auto) 0.3, Neutrophils # (Auto ) 5.13, Lymphocytes # (Auto) 1.92, Monocytes # (Auto) 1.10, Eosinophils # (Auto ) 0.37, Basophils # (Auto) 0.03 05/28/16 05:26 Test 05/27/16 12:10 05/27/16 16:22 05/27/16 20:13 05/28/16 05:26 Urine Random Creatinine 33.0 mg/dl Urine Random Total Protein 35.0 mg/dl (0-11.9) Urine Protein/Creatinine Ratio 1.1 (0-0.2) Bedside Glucose 134 mg/dl (70-99) 148 mg/dl (70-99) White Blood Count 8.58 K/uL (4.8-10.8) Red Blood Count 4.21 M/uL (4.7-6.1) Hemoglobin 11.7 g/dL (14.0-18.0) Hematocrit 35.4 % (42-52) Mean Corpuscular Volume 84.1 fL (80-100) Mean Corpuscular Hemoglobin 27.8 pg (25-34) Mean Corpuscular Hemoglobin Concent 33.1 g/dl (32-36) Platelet Count 313 K/uL (130-400) Mean Platelet Volume 10.1 fL (7.4-10.4) Neutrophils (%) (Auto) 59.9 % Lymphocytes (%) (Auto) 22.4 % Monocytes (%) (Auto) 12.8 % Eosinophils (%) (Auto) 4.3 % Basophils (%) (Auto) 0.3 % Neutrophils # (Auto) 5.13 K/uL (1.4-6.5) Lymphocytes # (Auto) 1.92 K/uL (1.2-3.4) Monocytes # (Auto) 1.10 K/uL (0.11-0.59) Eosinophils # (Auto) 0.37 K/uL (0-0.5) Basophils # (Auto) 0.03 K/uL (0-0.2) RDW Standard Deviation 43.7 fL (36.4-46.3) RDW Coefficient of Variation 14.3 % (11.5-14.5) Immature Granulocyte % (Auto) 0.3 % Immature Granulocyte # (Auto) 0.03 K/uL (0.00-0.02) Prothrombin Time 10.8 SECONDS (9.0-12.0) Prothromb Time International Ratio 1.0 (0.9-1.1) Activated Partial Thromboplast Time 24.6 SECONDS (21.0-31.0) Partial Thromboplastin Ratio 0.9 Anion Gap 9.0 mmol/L (3-11) Est Creatinine Clear Calc Drug Dose 61.3 ml/min Estimated GFR () 49.7 Estimated GFR (Non- 42.9 BUN/Creatinine Ratio 15.5 (10-20) Calcium Level 9.1 mg/dl (8.5-10.1) Magnesium Level 2.1 mg/dl (1.8-2.4) Total Bilirubin 0.3 mg/dl (0.2-1) Direct Bilirubin < 0.1 mg/dl (0-0.2) Aspartate Amino Transf (AST/SGOT) 28 U/L (15-37) Alanine Aminotransferase (ALT/SGPT) 34 U/L (12-78) Alkaline Phosphatase 68 U/L (45-117) Total Protein 6.8 gm/dl (6.4-8.2) Albumin 3.1 gm/dl (3.4-5.0) Test 05/28/16 06:52 05/28/16 07:11 05/28/16 11:12 05/28/16 11:32 Bedside Glucose 62 mg/dl (70-99) 97 mg/dl (70-99) 283 mg/dl (70-99) Allergies Coded Allergies: NO KNOWN DRUG ALLERGIES (Verified Allergy, Unknown, ., 05/25/16) Medications Current Inpatient Medications Medications (Trade) Dose Ordered Sig/Marko Route Start Time Stop Time Status Last Admin Dose Admin Acetaminophen (Tylenol Tab) 650 mg Q4H PRN PO 05/25/16 20:45 06/24/16 20:44 Zolpidem Tartrate (Ambien Tab) 5 mg HSZ PRN PO 05/25/16 20:45 06/24/16 20:44 Nitroglycerin (Nitrostat Tab) 0.4 mg UD PRN SL 05/25/16 20:45 06/24/16 20:44 Amlodipine Besylate (Norvasc Tab) 2.5 mg QAM PO 05/26/16 09:00 06/25/16 08:59 Future Hold 05/27/16 07:54 2.5 MG Aspirin (Ecotrin Tab) 81 mg QAM PO 05/26/16 09:00 06/25/16 08:59 05/28/16 08:07 81 MG Atorvastatin Calcium (Lipitor Tab) 20 mg QPM PO 05/25/16 21:00 06/24/16 20:59 05/27/16 19:25 20 MG Carvedilol (Coreg Tab) 18.75 mg BID PO 05/25/16 21:00 06/24/16 20:59 05/28/16 08:07 18.75 MG Gabapentin (Neurontin Cap) 400 mg TID PO 05/25/16 21:00 06/24/16 20:59 05/28/16 08:07 400 MG Insulin Glargine (Lantus Solostar Pen) 35 unit BID SC 05/25/16 21:00 06/24/16 20:59 05/28/16 08:13 35 UNIT Oxycodone/ Acetaminophen (Percocet 10-325MG Tab) 1 tab Q6H PRN PO 05/25/16 20:45 06/08/16 20:44 05/28/16 08:15 1 TAB Glipizide (GlipiZIDE EXTENDED REL TAB) 10 mg BIDM PO 05/26/16 07:30 06/25/16 07:59 05/28/16 08:08 10 MG Ondansetron HCl (Zofran Inj) 4 mg Q6H PRN IV 05/25/16 20:45 06/24/16 20:44 Insulin Aspart (novoLOG ASPART) SLIDING SCALE If C... ACHS SC 05/25/16 21:00 06/24/16 20:59 05/28/16 08:12 7 UNITS Glucose (Glucose 40% Gel) UD PRN PO 05/25/16 20:45 06/24/16 20:44 Glucose (Glucose Chew Tab) 1 tabs UD PRN PO 05/25/16 20:45 06/24/16 20:44 Dextrose (Dextrose 50% 50ML Syringe) 50 ml UD PRN IV 05/25/16 20:45 06/24/16 20:44 Glucagon (Glucagon Inj) 1 mg UD PRN SQ 05/25/16 20:45 06/24/16 20:44 Lisinopril (Zestril Tab) 40 mg QAM PO 05/28/16 09:00 06/27/16 08:59 05/28/16 08:07 40 MG Impression (1) Chronic kidney disease, stage III (moderate) (2) Proteinuria (3) Diastolic CHF, acute (4) HTN (hypertension) (5) Fluid overload (6) Diabetes mellitus Mr. Green is a 60 year-old male with CKD III A3 (baseline creatinine 1.5-1.8 mg/dL). CKD consistent with diabetic nephropathy and likely hypertensive nephrosclerosis. He is mildly hypoalbuminemic. I cannot exclude paraproteinemia. He does have mild chronic anemia. He is not hypercalcemic to suggest myeloma. TTE notable for concentric LVH, diastolic dysfunction. Infiltrative cardiac disease not excluded. Renal US was negative for renal enlargement or hydronephrosis. Will check SPEP/immunofixation and UPEP. Repeat quantification of urine protein excretion with a random sample at this time. Recommendations CHRONIC KIDNEY DISEASE: -- Stable kidney function -- Comstock urine sediment -- Renal US report 05/24 reviewed today. 11.5 cm kidneys. No enlargement to suggest infiltrative disease. No hydronephrosis PROTEINURIA: -- Proteinuria likely related to DM -- Awaiting SIEP/UIEP. Will also check serum free light chains HYPERTENSION: -- Blood pressure is well controlled. Continue Lisinopril and Carvedilol CHF: -- Furosemide as directed by Cardiology
--- NOTE | 2016-05-28 12:02 | Progress Note ---
Subjective Date of Service: May 28, 2016. Subjective Pt evaluation today including: conversation w/ patient, physical exam, chart review, lab review, review of studies, review of inpatient medication list Problem List Medical Problems: (1) Lower extremity edema Status: Acute Objective Vital Signs Date Time Temp Pulse Resp B/P Pulse Ox O2 Delivery O2 Flow Rate FiO2 05/28/16 08:00 Room Air 05/28/16 07:22 36.4 64 18 116/72 96 Room Air 05/28/16 04:08 96 Room Air 05/28/16 03:15 36.3 69 17 105/64 93 Room Air 05/28/16 00:05 36.7 69 18 118/72 96 Room Air 05/28/16 00:03 96 Room Air 05/27/16 20:00 96 Room Air 05/27/16 18:40 37.0 74 18 152/75 96 Room Air 05/27/16 16:00 Room Air 05/27/16 15:01 36.9 70 19 118/68 95 Room Air 05/27/16 12:00 Room Air Physical Exam General Appearance: WD/WN, no apparent distress Eyes: normal inspection, PERRL, EOMI ENT: normal ENT inspection Neck: supple, no adenopathy, no JVD Respiratory/Chest: chest non-tender, lungs clear, normal breath sounds, no respiratory distress, no accessory muscle use Cardiovascular: regular rate, rhythm, no edema, no JVD Abdomen: normal bowel sounds, non tender, soft, no organomegaly Extremities: normal range of motion Neurologic/Psychiatric: chocolate temperer II-XII nml as tested, alert Skin: normal color Laboratory Results Last 24 Hours Test 05/27/16 12:10 05/27/16 16:22 05/27/16 20:13 05/28/16 05:26 Urine Random Creatinine 33.0 mg/dl Urine Random Total Protein 35.0 mg/dl Urine Protein/Creatinine Ratio 1.1 Bedside Glucose 134 mg/dl 148 mg/dl White Blood Count 8.58 K/uL Red Blood Count 4.21 M/uL Hemoglobin 11.7 g/dL Hematocrit 35.4 % Mean Corpuscular Volume 84.1 fL Mean Corpuscular Hemoglobin 27.8 pg Mean Corpuscular Hemoglobin Concent 33.1 g/dl Platelet Count 313 K/uL Mean Platelet Volume 10.1 fL Neutrophils (%) (Auto) 59.9 % Lymphocytes (%) (Auto) 22.4 % Monocytes (%) (Auto) 12.8 % Eosinophils (%) (Auto) 4.3 % Basophils (%) (Auto) 0.3 % Neutrophils # (Auto) 5.13 K/uL Lymphocytes # (Auto) 1.92 K/uL Monocytes # (Auto) 1.10 K/uL Eosinophils # (Auto) 0.37 K/uL Basophils # (Auto) 0.03 K/uL RDW Standard Deviation 43.7 fL RDW Coefficient of Variation 14.3 % Immature Granulocyte % (Auto) 0.3 % Immature Granulocyte # (Auto) 0.03 K/uL Prothrombin Time 10.8 SECONDS Prothromb Time International Ratio 1.0 Activated Partial Thromboplast Time 24.6 SECONDS Partial Thromboplastin Ratio 0.9 Sodium Level 140 mmol/L Potassium Level 3.7 mmol/L Chloride Level 100 mmol/L Carbon Dioxide Level 31 mmol/L Anion Gap 9.0 mmol/L Blood Urea Nitrogen 26 mg/dl Creatinine 1.70 mg/dl Est Creatinine Clear Calc Drug Dose 61.3 ml/min Estimated GFR () 49.7 Estimated GFR (Non- 42.9 BUN/Creatinine Ratio 15.5 Random Glucose 59 mg/dl Calcium Level 9.1 mg/dl Magnesium Level 2.1 mg/dl Total Bilirubin 0.3 mg/dl Direct Bilirubin < 0.1 mg/dl Aspartate Amino Transf (AST/SGOT) 28 U/L Alanine Aminotransferase (ALT/SGPT) 34 U/L Alkaline Phosphatase 68 U/L Total Protein 6.8 gm/dl Albumin 3.1 gm/dl Test 05/28/16 06:52 05/28/16 07:11 05/28/16 11:12 05/28/16 11:32 Bedside Glucose 62 mg/dl 97 mg/dl 283 mg/dl Assessment and Plan (1) Congestive heart failure (CHF) (2) Fluid overload (3) HTN (hypertension) (4) Hypercholesterolemia (5) Diabetes mellitus (6) Lower extremity edema Elevated d-dimer--CT angiogram not done due to elevated creatinine. Lower extremity venous Dopplers were negative. VQ scan is neg for PE KAUR; Improved. OP stress test. Diabetes mellitus--hold metformin 1000 mg by mouth twice a day and do not resume unless his creatinine 1.4 or less(presently 1.5). Continue glipizide ER 10 mg by mouth twice a day and Lantus insulin 35 units subcutaneous twice a day. Place on Accu-Cheks before meals and at bedtime with NovoLog coverage. Hypercholesterolemia--continue atorvastatin 20 mg by mouth every afternoon. Diastolic CHF: Started on Lasix and Lisinopril. ONESIMO held due to increase in serum creatinine. Recheck labs tala. Peripheral neuropathy--continue gabapentin 400 mg by mouth 3 times a day. Right rotator cuff injury--consideration being given to a future surgery. Lumbar degenerative disc disease/chronic low back pain--stable. Problem Qualifiers (1) Congestive heart failure (CHF): Congestive heart failure type: diastolic Congestive heart failure chronicity: acute Qualified Codes: I50.31 - Acute diastolic (congestive) heart failure (2) Lower extremity edema: Laterality: bilateral Qualified Codes: R60.0 - Localized edema
[2016-05-28] MEDS: ATORVASTATIN 20 MG TAB PO SCH (20:56)
[2016-05-29 03:59] VITALS: BP 99/63; PULSE 69; TEMP 36.9; O2SAT 96
[2016-05-29 04:00] VITALS: O2SAT 96
[2016-05-29] MEDS: OXYCODONE/ACETAMINOPHEN 10/325MG TAB PO PRN ×4 (04:20→23:39)
[2016-05-29 06:55] LABS: HEMATOCRIT 35.6 % (42-52); MEAN CELL VOLUME 82.6 fL (80-100); MEAN CORPUSCULAR HEMOGLOBIN 27.4 pg (25-34); MEAN CORPUSCULAR HGB CONC 33.1 g/dl (32-36); MEAN PLATELET VOLUME 10.2 fL (7.4-10.4); PLATELET COUNT 302 K/uL (130-400); RED BLOOD COUNT 4.31 M/uL (4.7-6.1); WHITE BLOOD COUNT 9.59 K/uL (4.8-10.8)
[2016-05-29 06:57] LABS: BUN/CREATININE RATIO 16.7 (10-20); CALCIUM 8.8 mg/dl (8.5-10.1); CREATININE 1.7 mg/dl (0.60-1.40)
[2016-05-29 07:54] LABS: ESTIMATED AVERAGE GLUCOSE 212 mg/dl; HA1C FLAG Normal (Normal)
[2016-05-29] MEDS: CARVEDILOL 12.5 MG TAB PO SCH ×2 (08:09→21:33)
[2016-05-29] MEDS: ASPIRIN 81 MG ECTAB PO SCH (08:09)
[2016-05-29] MEDS: GABAPENTIN 400 MG CAP PO SCH ×3 (08:09→21:32)
--- NOTE | 2016-05-29 08:55 | Cardiology Follow-Up ---
Subjective General Date of Service: May 29, 2016. Pt evaluation today including: conversation w/ patient, chart review, lab review, conversation w/ securities consultant History of Present Illness The patient is a 60 year old male Allergies Coded Allergies: NO KNOWN DRUG ALLERGIES (Verified Allergy, Unknown, ., 05/25/16) Social History Smoking Status: Unknown if Ever Smoked Hx Tobacco Use In Past Year?: Yes (SNUFF) Hx Alcohol Use - Type And Amou: Yes (2X MONTH ) Hx Substance Use - Type And Am: No Problem List Medical Problems: (1) Lower extremity edema Status: Acute Review of Systems Respiratory: No cough, No dyspnea at rest, No shortness of breath Cardiac: No chest pain, No edema, No palpitations Physical Exam Vital Signs Last Vital Signs Documentation Date Time Temp Pulse Resp B/P Pulse Ox O2 Delivery O2 Flow Rate FiO2 05/29/16 04:00 96 Room Air 05/29/16 03:59 36.9 69 15 99/63 Physical Exam Constitutional: General Apperance: obese Level of Distress: NAD Lungs: Respiratory effort: good air movement Auscultation: breath sounds normal, no wheezing, no rales/crackles, no rhonchi Cardiovascular: Heart Auscultation: RRR, no murmurs, no rubs, no gallops Abdomen: Bowel Sounds: normal Inspection & Palpation: distended, pertinent finding (firm but better) Extremities: no edema Assessment and Plan Assessment and Plan IMPRESSION: 1. Acute on chronic probably diastolic heart failure. 2. Moderate concentric left ventricular hypertrophy, possibly related to longstanding hypertension and diabetes 3. Shortness of breath, possibly related to diastolic and right sided heart failure, possibly related to obstructive coronary artery disease. He has no regional wall motion abnormalities and troponins are negative, but he has multiple risk factors for coronary artery disease. 4. Hypertension. 5. 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 6. Hyperlipidemia. 7. 2+ proteinuria Iron and ferritin normal 2+ protein SPEP and UPEP Pending Had outpt stress 1 year ago lasix 20mg daily and may need to increase if weight up watch BP, no dizziness this am BMP in 1 week will see in office in 2 weeks d/w nephrology Laboratory Results Last 24 Hours Test 05/28/16 11:11 05/28/16 11:12 05/28/16 12:25 05/28/16 16:11 Bedside Glucose 316 mg/dl 283 mg/dl 209 mg/dl Test 05/28/16 20:06 05/29/16 04:01 05/29/16 06:00 05/29/16 06:02 Bedside Glucose 168 mg/dl 171 mg/dl Sodium Level 138 mmol/L Potassium Level 4.0 mmol/L Chloride Level 100 mmol/L Carbon Dioxide Level 33 mmol/L Anion Gap 5.0 mmol/L Blood Urea Nitrogen 28 mg/dl Creatinine 1.70 mg/dl Est Creatinine Clear Calc Drug Dose 60.7 ml/min Estimated GFR () 49.7 Estimated GFR (Non- 42.9 BUN/Creatinine Ratio 16.7 Random Glucose 155 mg/dl Calcium Level 8.8 mg/dl White Blood Count 9.59 K/uL Red Blood Count 4.31 M/uL Hemoglobin 11.8 g/dL Hematocrit 35.6 % Mean Corpuscular Volume 82.6 fL Mean Corpuscular Hemoglobin 27.4 pg Mean Corpuscular Hemoglobin Concent 33.1 g/dl RDW Standard Deviation 42.3 fL RDW Coefficient of Variation 14.0 % Platelet Count 302 K/uL Mean Platelet Volume 10.2 fL Estimated Average Glucose 212 mg/dl Hemoglobin A1c 9.0 % Test 05/29/16 06:50 Bedside Glucose 154 mg/dl
[2016-05-29] MEDS: LISINOPRIL 20 MG TAB PO SCH (08:56)
[2016-05-29] MEDS: INSULIN ASPART 100 UNITS/ML 3 ML PEN SC SCH ×4 (08:58→21:32)
[2016-05-29] MEDS: INSULIN GLARGINE SOLOSTAR 100 UNITS/ML 3 ML PEN SC SCH (08:59)
--- NOTE | 2016-05-29 09:19 | Nephrology Progress Note ---
Nephrology Progress Note Date of Service May 29, 2016. Chief Complaint Follow up evaluation of CKD and proteinuria Subjective Mr. Green was seen & examined in the PCU this morning. He was admitted to the hospital for management of CHF. Cardiology was consulted. Transthoracic echocardiogram documented concentric LVH w/ LVEF 60%, diastolic CHF, no significant valvular heart disease. Mr. Green has responded well to diuretic therapy. His weight has dropped 7 kg. He is now breathing comfortably on room air. His lower extremity edema has resolved. The patient has AODM > 8 years. No retinopathy. Outpatient glycemic control has been poor. Hgb A1c has been elevated. Mr. Green has CKD w/ baseline creatinine 1.5 - 1.8. He has had proteinuria ( ~ 800 mg 04/19). He has not had nephrology evaluation prior to this hospitalization. He has a remote h/o kidney stones Review of Systems Constitutional: No fever Cardiovascular: No chest pain Respiratory: No dyspnea at rest Abdomen: No nausea, No pain, No vomiting Extremities: No leg edema A complete review of systems was performed. Pertinent positives are noted above. All other systems are negative. Vital Signs Last 8 Hrs Date Time Temp Pulse Resp B/P Pulse Ox O2 Delivery O2 Flow Rate FiO2 05/29/16 04:00 96 Room Air 05/29/16 03:59 36.9 69 15 99/63 96 Room Air I & O 24-Hour Column 05/29/16 08:00 Intake Total 1295 ml Output Total 1100 ml Balance 195 ml Last Recorded Weight Weight (Kilograms): 108.700 Physical Exam General Appearance: no apparent distress Head: normocephalic, atraumatic Eyes: PERRL, EOMI Neck: no adenopathy, no JVD Respiratory/Chest: lungs clear, no respiratory distress Cardiovascular: regular rate, rhythm, no murmur Abdomen/GI: normal bowel sounds, non tender, soft Extremities/Musculoskelatal: no calf tenderness, no pedal edema Neurologic/Psych: alert, oriented x 3 Social History Smokeless Tobacco Use: No Alcohol Use: socially Drug Use: none Marital Status: Housing Status: lives with family Occupation: disabled Laboratory Results Past 24 Hours 05/29/16 06:02 05/29/16 06:00 Test 05/28/16 11:11 05/28/16 11:12 05/28/16 12:25 05/28/16 16:11 Bedside Glucose 316 mg/dl (70-99) 283 mg/dl (70-99) 209 mg/dl (70-99) Test 05/28/16 20:06 05/29/16 04:01 05/29/16 06:00 05/29/16 06:02 Bedside Glucose 168 mg/dl (70-99) 171 mg/dl (70-99) Anion Gap 5.0 mmol/L (3-11) Est Creatinine Clear Calc Drug Dose 60.7 ml/min Estimated GFR () 49.7 Estimated GFR (Non- 42.9 BUN/Creatinine Ratio 16.7 (10-20) Calcium Level 8.8 mg/dl (8.5-10.1) Red Blood Count 4.31 M/uL (4.7-6.1) Mean Corpuscular Volume 82.6 fL (80-100) Mean Corpuscular Hemoglobin 27.4 pg (25-34) Mean Corpuscular Hemoglobin Concent 33.1 g/dl (32-36) RDW Standard Deviation 42.3 fL (36.4-46.3) RDW Coefficient of Variation 14.0 % (11.5-14.5) Mean Platelet Volume 10.2 fL (7.4-10.4) Estimated Average Glucose 212 mg/dl Hemoglobin A1c 9.0 % (4.5-5.6) Test 05/29/16 06:50 Bedside Glucose 154 mg/dl (70-99) Allergies Coded Allergies: NO KNOWN DRUG ALLERGIES (Verified Allergy, Unknown, ., 05/25/16) Medications Current Inpatient Medications Medications (Trade) Dose Ordered Sig/Marko Route Start Time Stop Time Status Last Admin Dose Admin Acetaminophen (Tylenol Tab) 650 mg Q4H PRN PO 05/25/16 20:45 06/24/16 20:44 Zolpidem Tartrate (Ambien Tab) 5 mg HSZ PRN PO 05/25/16 20:45 06/24/16 20:44 Nitroglycerin (Nitrostat Tab) 0.4 mg UD PRN SL 05/25/16 20:45 06/24/16 20:44 Amlodipine Besylate (Norvasc Tab) 2.5 mg QAM PO 05/26/16 09:00 06/25/16 08:59 Future Hold 05/27/16 07:54 2.5 MG Aspirin (Ecotrin Tab) 81 mg QAM PO 05/26/16 09:00 06/25/16 08:59 05/29/16 08:09 81 MG Atorvastatin Calcium (Lipitor Tab) 20 mg QPM PO 05/25/16 21:00 06/24/16 20:59 05/28/16 20:56 20 MG Carvedilol (Coreg Tab) 18.75 mg BID PO 05/25/16 21:00 06/24/16 20:59 05/29/16 08:09 18.75 MG Gabapentin (Neurontin Cap) 400 mg TID PO 05/25/16 21:00 06/24/16 20:59 05/29/16 08:09 400 MG Insulin Glargine (Lantus Solostar Pen) 35 unit BID SC 05/25/16 21:00 06/24/16 20:59 05/29/16 08:59 35 UNIT Oxycodone/ Acetaminophen (Percocet 10-325MG Tab) 1 tab Q6H PRN PO 05/25/16 20:45 06/08/16 20:44 05/29/16 04:20 1 TAB Glipizide (GlipiZIDE EXTENDED REL TAB) 10 mg BIDM PO 05/26/16 07:30 06/25/16 07:59 05/29/16 08:09 10 MG Ondansetron HCl (Zofran Inj) 4 mg Q6H PRN IV 05/25/16 20:45 06/24/16 20:44 Insulin Aspart (novoLOG ASPART) SLIDING SCALE If C... ACHS SC 05/25/16 21:00 06/24/16 20:59 05/29/16 08:58 8 UNITS Glucose (Glucose 40% Gel) UD PRN PO 05/25/16 20:45 06/24/16 20:44 Glucose (Glucose Chew Tab) 1 tabs UD PRN PO 05/25/16 20:45 06/24/16 20:44 Dextrose (Dextrose 50% 50ML Syringe) 50 ml UD PRN IV 05/25/16 20:45 06/24/16 20:44 Glucagon (Glucagon Inj) 1 mg UD PRN SQ 05/25/16 20:45 4/23/17 20:44 Lisinopril (Zestril Tab) 40 mg QAM PO 05/28/16 09:00 06/27/16 08:59 05/29/16 08:56 40 MG Impression (1) Chronic kidney disease, stage III (moderate) (2) Proteinuria (3) Diastolic CHF, acute (4) HTN (hypertension) (5) Fluid overload (6) Diabetes mellitus Mr. Green is a 60 year-old male with CKD III A3 (baseline creatinine 1.5-1.8 mg/dL). CKD consistent with diabetic nephropathy and likely hypertensive nephrosclerosis. He is mildly hypoalbuminemic. I cannot exclude paraproteinemia. He does have mild chronic anemia. He is not hypercalcemic to suggest myeloma. TTE notable for concentric LVH, diastolic dysfunction. Infiltrative cardiac disease not excluded. Renal US was negative for renal enlargement or hydronephrosis. Will check SPEP/immunofixation and UPEP. Recommendations CHRONIC KIDNEY DISEASE: -- Creatinine has stabilized at 1.7 w/ EGFR 42.9 cc/min -- Arnett urine sediment -- Renal US report 05/24: 11.5 cm kidneys. No enlargement to suggest infiltrative disease. No hydronephrosis PROTEINURIA: -- Proteinuria likely related to DM -- Awaiting SIEP/UIEP and serum free light chains HYPERTENSION: -- Blood pressure is well controlled. Continue Lisinopril and Carvedilol CHF: -- Furosemide as directed by Cardiology -- Discussed a weight based diuretic regimen with the patient today. -- Discussed a 1500 mg / day sodium restricted diet OTHER: -- If discharge is anticipated, please have patient follow up w/ Dr. [facility] [place] Nephrology ([phone]) within 1 - 2 weeks. I have placed order in [employer] for patient to have nonfasting blood work and urine sample completed 24 - 48 hours prior to nephrology visit.
[2016-05-29 09:31] VITALS: BP 111/67; PULSE 65; TEMP 36.6; O2SAT 96
[2016-05-29] MEDS ORDERED: PHARMACY GLYCEMIC MGMT CONSULT PRN (10:00)
--- NOTE | 2016-05-29 10:25 | Progress Note ---
Subjective Date of Service: May 29, 2016. Subjective Pt evaluation today including: conversation w/ patient, physical exam, chart review, lab review Problem List Medical Problems: (1) Lower extremity edema Status: Acute Review of Systems Constitutional: No chills, No fatigue, No fever, No problem reported, No see HPI, No sweats, No weakness, No weight loss Eyes: No diplopia, No discharge, No eye pain, No problem reported, No redness, No see HPI, No worsening of vision ENT: No dental problems, No hearing loss, No nasal symptoms, No problem reported, No see HPI, No sore throat, No tinnitus, No trouble swallowing, No unusual epistaxis Respiratory: No cough, No dyspnea at rest, No dyspnea on exertion, No hemoptysis, No problem reported, No see HPI, No shortness of breath, No sputum, No wheezing Cardiac: No PND, No chest pain, No claudication, No edema, No orthopnea, No palpitations, No problem reported, No see HPI Abdomen: No GI bleeding, No constipation, No diarrhea, No nausea, No pain, No problem reported, No see HPI, No vomiting Musculoskeletal: No calf pain, No joint pain, No muscle pain, No problem reported, No see HPI, No swelling Male : No dysuria, No hematuria, No incontinence, No nocturia more than once/ night, No problem reported, No see HPI, No sexual dysfunction, No slowing stream , No urinary frequency Neurologic: No balance problems, No memory loss, No numbness/tingling, No paralysis, No problem reported, No see HPI, No vertigo, No weakness Psychiatric: No anhedonism, No anxiety, No depression symptoms, No insomnia, No problem reported, No see HPI, No substance abuse Heme: No abnormal bleeding/bruising, No clotting problems, No night sweats, No problem reported, No see HPI, No swollen lymph nodes Endo: No excessive thirst, No excessive urination, No fatigue, No problem reported, No see HPI Skin: No bleeding, No color change, No itch, No new/changing skin lesions, No problem reported, No rash, No see HPI Medications Current Inpatient Medications Medications (Trade) Dose Ordered Sig/Marko Route Start Time Stop Time Status Last Admin Dose Admin Acetaminophen (Tylenol Tab) 650 mg Q4H PRN PO 05/25/16 20:45 06/24/16 20:44 Zolpidem Tartrate (Ambien Tab) 5 mg HSZ PRN PO 05/25/16 20:45 06/24/16 20:44 Nitroglycerin (Nitrostat Tab) 0.4 mg UD PRN SL 05/25/16 20:45 06/24/16 20:44 Amlodipine Besylate (Norvasc Tab) 2.5 mg QAM PO 05/26/16 09:00 06/25/16 08:59 Future Hold 05/27/16 07:54 2.5 MG Aspirin (Ecotrin Tab) 81 mg QAM PO 05/26/16 09:00 06/25/16 08:59 05/29/16 08:09 81 MG Atorvastatin Calcium (Lipitor Tab) 20 mg QPM PO 05/25/16 21:00 06/24/16 20:59 05/28/16 20:56 20 MG Carvedilol (Coreg Tab) 18.75 mg BID PO 05/25/16 21:00 06/24/16 20:59 05/29/16 08:09 18.75 MG Gabapentin (Neurontin Cap) 400 mg TID PO 05/25/16 21:00 06/24/16 20:59 05/29/16 08:09 400 MG Insulin Glargine (Lantus Solostar Pen) 35 unit BID SC 05/25/16 21:00 06/24/16 20:59 05/29/16 08:59 35 UNIT Oxycodone/ Acetaminophen (Percocet 10-325MG Tab) 1 tab Q6H PRN PO 05/25/16 20:45 06/08/16 20:44 05/29/16 04:20 1 TAB Ondansetron HCl (Zofran Inj) 4 mg Q6H PRN IV 05/25/16 20:45 06/24/16 20:44 Insulin Aspart (novoLOG ASPART) SLIDING SCALE If C... ACHS SC 05/25/16 21:00 06/24/16 20:59 05/29/16 08:58 8 UNITS Glucose (Glucose 40% Gel) UD PRN PO 05/25/16 20:45 06/24/16 20:44 Glucose (Glucose Chew Tab) 1 tabs UD PRN PO 05/25/16 20:45 06/24/16 20:44 Dextrose (Dextrose 50% 50ML Syringe) 50 ml UD PRN IV 05/25/16 20:45 06/24/16 20:44 Glucagon (Glucagon Inj) 1 mg UD PRN SQ 05/25/16 20:45 06/24/16 20:44 Lisinopril (Zestril Tab) 40 mg QAM PO 05/28/16 09:00 06/27/16 08:59 05/29/16 08:56 40 MG Miscellaneous Information (Consult Glycemic Management Pharmacy) 1 ea UD PRN N/A 05/29/16 10:00 06/28/16 09:59 Objective Vital Signs Date Time Temp Pulse Resp B/P Pulse Ox O2 Delivery O2 Flow Rate FiO2 05/29/16 09:31 36.6 65 19 111/67 96 05/29/16 08:00 Room Air 05/29/16 04:00 96 Room Air 05/29/16 03:59 36.9 69 15 99/63 96 Room Air 05/28/16 23:59 Room Air 05/28/16 23:51 36.9 70 16 108/62 95 Room Air 05/28/16 20:00 Room Air 05/28/16 19:30 37.1 73 20 119/68 94 Room Air 05/28/16 16:00 Room Air 05/28/16 15:43 36.8 73 20 114/70 94 Room Air 05/28/16 12:00 Room Air 05/28/16 11:40 36.8 65 16 118/69 97 Room Air Physical Exam General Appearance: no apparent distress Eyes: normal inspection, PERRL, EOMI ENT: normal ENT inspection, hearing grossly normal, TMs normal, pharynx normal Neck: supple Respiratory/Chest: chest non-tender, lungs clear, normal breath sounds, no respiratory distress, no accessory muscle use Cardiovascular: regular rate, rhythm, no edema, no gallop, no JVD, no murmur Abdomen: normal bowel sounds, non tender, soft, no organomegaly, no pulsatile mass Extremities: normal range of motion, non-tender, normal inspection, no pedal edema, no calf tenderness 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7 Estimated GFR (Non- 42.9 BUN/Creatinine Ratio 16.7 Random Glucose 155 mg/dl Calcium Level 8.8 mg/dl White Blood Count 9.59 K/uL Red Blood Count 4.31 M/uL Hemoglobin 11.8 g/dL Hematocrit 35.6 % Mean Corpuscular Volume 82.6 fL Mean Corpuscular Hemoglobin 27.4 pg Mean Corpuscular Hemoglobin Concent 33.1 g/dl RDW Standard Deviation 42.3 fL RDW Coefficient of Variation 14.0 % Platelet Count 302 K/uL Mean Platelet Volume 10.2 fL Estimated Average Glucose 212 mg/dl Hemoglobin A1c 9.0 % Test 05/29/16 06:50 Bedside Glucose 154 mg/dl Assessment and Plan (1) Congestive heart failure (CHF) (2) Fluid overload (3) HTN (hypertension) (4) Hypercholesterolemia (5) Diabetes mellitus (6) Lower extremity edema EXERTIONAL SOB: multifactorila; diastolic CHF, CKD and obesity hypoventilation syndrome improved, continue supportive care DMII INSULIN REQUIRING: consult pharmacy to adjust blood sugar / insulin regimen DC metformin / glipizide due to renal function adjust insulin dose (switch to lantus/lisipro) CHRONIC KIDNEY DISEASE/PROTEINURIA: stable kidney function, creatinine today is 1.7, renal us reviewed despite of proteinuria and the need to give as high as possible ACEI, due to low blood pressure (systolic up to 99) will decrease lisinopril by half Awaiting SIEP/UIEP/ light chains HYPERTENSION, currently hypotensive: decrease dose of Lisinopril and Carvedilol ACUTE ON CHRONIC DIASTOLIC CHF: improved CONTINUE Furosemide Problem Qualifiers (1) Congestive heart failure (CHF): Congestive heart failure type: diastolic Congestive heart failure chronicity: acute Qualified Codes: I50.31 - Acute diastolic (congestive) heart failure (2) Lower extremity edema: Laterality: bilateral Qualified Codes: R60.0 - Localized edema
--- NOTE | 2016-05-29 11:08 | Pharmacy Progress Note ---
Glycemic Control Intl Consult Date of Service May 29, 2016. Scope Glycemic Pharmacist consulted by Dr Leonard on 05/29/16 for glycemic control and to write orders per [facility] inpatient glycemic control protocol Objective Weight (Kilograms): 108.700 Accuchecks BSG (last 24hrs): Test 05/28/16 11:11 05/28/16 11:12 05/28/16 16:11 05/28/16 20:06 Bedside Glucose 316 mg/dl (70-99) 283 mg/dl (70-99) 209 mg/dl (70-99) 168 mg/dl (70-99) Test 05/29/16 04:01 05/29/16 06:00 05/29/16 06:50 Bedside Glucose 171 mg/dl (70-99) 154 mg/dl (70-99) Random Glucose 155 mg/dl (70-99) HbA1c Test 05/29/16 06:02 Hemoglobin A1c 9.0 % (4.5-5.6) H Recent Pertinent Medications Outpatient Anti-diabetic Regimen: * Lantus 35 units SQ BID (recently increased by PCP) * Glipizide ER 10mg PO BIDM * Metformin 1,000mg PO BIDM The patient is currently receiving: * Basal insulin: Lantus 35 units every 12 hours * Correctional Insulin: Novolog Correction per scale ACHS Goal Range: Low 100 mg/dL - High 150 mg/dL Correction Factor: 30 mg/dL/unit * Prandial insulin: Per carb ratio of 1 unit per 10 grams CHO consumed * Oral Agents: Glipizide 10mg PO BIDM Assessment & Plan ASSESSMENT: * Patient is currently receiving ~ 90 units of insulin per day. Expect this total daily dose to be continued as an outpatient with d/c glipizide and adding prandial Novolog coverage. * 70 units of basal insulin (expect this to decrease with increasing NovoLog) * ~20 units of prandial/correctional insulin (expect this to increase with glipizde d/c) * BSGs ranging/averaging 148-209mg/dl over the past few days * Pt with low BSG on 05/28 AM --> Most likely secondary to continuing glipizide with decreased PO intake vs too much basal insulin * Pt with rebound hyperglycemia 05/28 prior to lunch --> most likely secondary to over-treating low that AM * Anticipating insulin regimen will need adjusted for discharge since oral agents are being d/c'ed and prandial insulin being continued at discharge. * Would like to get Lantus on daily dosing (rather than BID) if possible. Current Lantus dosing is most likely covering some prandial needs. Dosing may need decreased slightly when NovoLog coverage added * Distribute regimen 50%:50% basal:prandial to prevent hypo/hyperglycemia when changes in PO intake occur PLAN FOR INPATIENT GLYCEMIC CONTROL: * Hold outpatient oral diabetes medications (done by provider) * Work basal insulin to daily dosing. Pt received 35 units this morning. Will give 25 units SQ this evening with dinner and then start daily dosing tomorrow morning with Lantus 50 units SQ daily in AM. * Tighten NovoLog per scale ACHS or Q6hrs while NPO. These new parameters to start with dinner when glipizde dose given this AM wearing off * Goal Range: Low 100 mg/dL - High 140 mg/dL * Correction Factor: 20 mg/dL/unit * Nutritional / Prandial insulin per carb ratio of 1 unit per 7 grams CHO consumed Recommendations for Discharge: * Change Lantus to 50 units SQ daily * NovoLog 15 units SQ three times daily with meals * do not give this dose if meal is skipped/missed * Recommend continuing metformin XR 1,000mg PO BIDM at discharge. This will help keep insulin doses lower and prevent further weight gain/hypoglycemia * FDA has changed the labeling on using metformin in renal impairment. Metformin can be continued until CrCl < 30 ml/min. Currently, CrCl ~ 60 ml/min * Metformin, if not contraindicated and if tolerated, is the preferred initial pharmacological agent for type 2 diabetes. Metformin has a long-standing evidence base for efficacy and safety, is inexpensive, and may reduce risk of cardiovascular events. 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 These recommendations are appropriate for inpatient admission only. Plan of care upon discharge will need to be reassessed to avoid potential outpatient hypo/hyperglycemia. Thank you.
[2016-05-29 11:27] VITALS: Ht 188 cm; Wt 108.6 kg
[2016-05-29 11:50] VITALS: BP 122/68; PULSE 69; TEMP 36.7; O2SAT 95
[2016-05-29 11:52] VITALS: BP 122/68; PULSE 69; TEMP 36.7; O2SAT 95
[2016-05-29 15:28] LABS: ALBUMIN 3.5 G/DL (3.8-4.8); GAMMA GLOBULIN 0.8 G/DL (0.8-1.7); TOTAL PROTEIN 6.4 G/DL (6.2-8.3)
[2016-05-29 15:34] VITALS: BP 135/71; PULSE 67; TEMP 36.7; O2SAT 97
[2016-05-29] MEDS ORDERED: INSULIN GLARGINE SOLOSTAR 100 UNITS/ML 3 ML PEN SC SCH (18:00)
[2016-05-29] MEDS: ATORVASTATIN 20 MG TAB PO SCH (21:33)
[2016-05-30 00:25] VITALS: BP 132/73; PULSE 71; TEMP 36.8; O2SAT 98
[2016-05-30 06:51] LABS: ALBUMIN % 72.66 %; ALPHA-2-GLOBULIN % 4.39 %; BETA GLOBULIN % 9.42 %; CREATININE UR 85 MG/DL (20-370); GAMMA GLOBULIN % 7.28 %
[2016-05-30 07:45] VITALS: BP 111/65; PULSE 62; TEMP 36.7; O2SAT 94
[2016-05-30] MEDS: OXYCODONE/ACETAMINOPHEN 10/325MG TAB PO PRN (07:56)
[2016-05-30] MEDS: CARVEDILOL 12.5 MG TAB PO SCH (07:56)
[2016-05-30] MEDS: ASPIRIN 81 MG ECTAB PO SCH (07:56)
[2016-05-30] MEDS: GABAPENTIN 400 MG CAP PO SCH ×2 (07:57→12:52)
[2016-05-30] MEDS ORDERED: INSULIN GLARGINE SOLOSTAR 100 UNITS/ML 3 ML PEN SC SCH (08:00)
[2016-05-30] MEDS ORDERED: LISINOPRIL 20 MG TAB PO SCH (08:00)
[2016-05-30 08:09] LABS: BASO % 0.4 %; BASO ABS # 0.03 K/uL (0-0.2); COMPLETE YES; EOS % 4.2 %; HEMATOCRIT 37.1 % (42-52); IG% 0.2 %; LYMPH % 21.7 %; LYMPH ABS # 1.77 K/uL (1.2-3.4); MEAN CELL VOLUME 84.1 fL (80-100); MEAN CORPUSCULAR HEMOGLOBIN 28.1 pg (25-34); MEAN CORPUSCULAR HGB CONC 33.4 g/dl (32-36); MEAN PLATELET VOLUME 10.3 fL (7.4-10.4); MONO % 8.6 %; NEUT % 64.9 %; PLATELET COUNT 303 K/uL (130-400); RED BLOOD COUNT 4.41 M/uL (4.7-6.1); WHITE BLOOD COUNT 8.15 K/uL (4.8-10.8)
[2016-05-30 08:39] LABS: BUN/CREATININE RATIO 18.3 (10-20); CREATININE 1.8 mg/dl (0.60-1.40); MAGNESIUM 2.6 mg/dl (1.8-2.4); POTASSIUM 4.3 mmol/L (3.5-5.1)
[2016-05-30 08:42] LABS: ALB/GLOB RATIO 0.8 (0.9-2); PHOSPHORUS 3.8 mg/dl (2.5-4.9)
[2016-05-30] MEDS: INSULIN ASPART 100 UNITS/ML 3 ML PEN SC SCH ×2 (08:46→12:52)
--- NOTE | 2016-05-30 10:29 | Nephrology Progress Note ---
Nephrology Progress Note Date of Service May 30, 2016. Chief Complaint Follow up evaluation of CKD and proteinuria Subjective Mr. Green was seen & examined in his hospital room this morning. He was admitted for management of CHF. Cardiology was consulted. Transthoracic echocardiogram documented concentric LVH w/ LVEF 60%, diastolic CHF, no significant valvular heart disease. Mr. Green has responded well to diuretic therapy. His weight has dropped 7 kg. He is now breathing comfortably on room air. His lower extremity edema has resolved. The patient has AODM > 8 years. No retinopathy. Outpatient glycemic control has been poor. Hgb A1c has been elevated. Mr. Green has CKD w/ baseline creatinine 1.5 - 1.8. He has had proteinuria ( ~ 800 mg 04/19). He has not had nephrology evaluation prior to this hospitalization. He has a remote h/o kidney stones Review of Systems Constitutional: No fever Cardiovascular: No chest pain Respiratory: No dyspnea at rest Abdomen: No nausea, No pain, No vomiting Genitourinary - Male: No dysuria, No gross hematuria Extremities: No leg edema A complete review of systems was performed. Pertinent positives are noted above. All other systems are negative. Vital Signs Last 8 Hrs Date Time Temp Pulse Resp B/P Pulse Ox O2 Delivery O2 Flow Rate FiO2 05/30/16 08:00 Room Air 05/30/16 07:45 36.7 62 16 111/65 94 Room Air I & O 24-Hour Column 05/30/16 08:00 Intake Total 1505 ml Balance 1505 ml Last Recorded Weight Weight (Kilograms): 108.600 Physical Exam General Appearance: no apparent distress Head: normocephalic, atraumatic Eyes: PERRL, EOMI Neck: no adenopathy Respiratory/Chest: lungs clear Cardiovascular: regular rate, rhythm Abdomen/GI: normal bowel sounds, non tender, soft Extremities/Musculoskelatal: no calf tenderness, no pedal edema Neurologic/Psych: alert, oriented x 3 Social History Smokeless Tobacco Use: No Alcohol Use: socially Drug Use: none Marital Status: Housing Status: lives with family Occupation: disabled Laboratory Results Past 24 Hours 05/30/16 07:40 Red Blood Count 4.41, Mean Corpuscular Volume 84.1, Mean Corpuscular Hemoglobin 28.1, Mean Corpuscular Hemoglobin Concent 33.4, Mean Platelet Volume 10.3, Neutrophils (%) (Auto) 64.9, Lymphocytes (%) (Auto) 21.7, Monocytes (%) (Auto) 8.6, Eosinophils (%) (Auto) 4.2, Basophils (%) (Auto) 0.4, Neutrophils # (Auto) 5.29, Lymphocytes # (Auto) 1.77, Monocytes # (Auto) 0.70, Eosinophils # (Auto) 0.34, Basophils # (Auto) 0.03 05/30/16 07:40 Test 05/29/16 11:05 05/29/16 16:32 05/29/16 20:09 05/29/16 21:27 Bedside Glucose 283 mg/dl (70-99) 179 mg/dl (70-99) 241 mg/dl (70-99) 206 mg/dl (70-99) Test 05/30/16 07:14 05/30/16 07:40 Bedside Glucose 146 mg/dl (70-99) White Blood Count 8.15 K/uL (4.8-10.8) Red Blood Count 4.41 M/uL (4.7-6.1) Hemoglobin 12.4 g/dL (14.0-18.0) Hematocrit 37.1 % (42-52) Mean Corpuscular Volume 84.1 fL (80-100) Mean Corpuscular Hemoglobin 28.1 pg (25-34) Mean Corpuscular Hemoglobin Concent 33.4 g/dl (32-36) Platelet Count 303 K/uL (130-400) Mean Platelet Volume 10.3 fL (7.4-10.4) Neutrophils (%) (Auto) 64.9 % Lymphocytes (%) (Auto) 21.7 % Monocytes (%) (Auto) 8.6 % Eosinophils (%) (Auto) 4.2 % Basophils (%) (Auto) 0.4 % Neutrophils # (Auto) 5.29 K/uL (1.4-6.5) Lymphocytes # (Auto) 1.77 K/uL (1.2-3.4) Monocytes # (Auto) 0.70 K/uL (0.11-0.59) Eosinophils # (Auto) 0.34 K/uL (0-0.5) Basophils # (Auto) 0.03 K/uL (0-0.2) RDW Standard Deviation 42.8 fL (36.4-46.3) RDW Coefficient of Variation 13.9 % (11.5-14.5) Immature Granulocyte % (Auto) 0.2 % Immature Granulocyte # (Auto) 0.02 K/uL (0.00-0.02) Anion Gap 5.0 mmol/L (3-11) Est Creatinine Clear Calc Drug Dose 57.3 ml/min Estimated GFR () 46.4 Estimated GFR (Non- 40.0 BUN/Creatinine Ratio 18.3 (10-20) Calcium Level 9.0 mg/dl (8.5-10.1) Phosphorus Level 3.8 mg/dl (2.5-4.9) Magnesium Level 2.6 mg/dl (1.8-2.4) Total Bilirubin 0.3 mg/dl (0.2-1) Aspartate Amino Transf (AST/SGOT) 25 U/L (15-37) Alanine Aminotransferase (ALT/SGPT) 36 U/L (12-78) Alkaline Phosphatase 70 U/L (45-117) Total Protein 7.2 gm/dl (6.4-8.2) Albumin 3.3 gm/dl (3.4-5.0) Globulin 3.9 gm/dl (2.5-4.0) Albumin/Globulin Ratio 0.8 (0.9-2) Allergies Coded Allergies: NO KNOWN DRUG ALLERGIES (Verified Allergy, Unknown, ., 05/25/16) Medications Current Inpatient Medications Medications (Trade) Dose Ordered Sig/Marko Route Start Time Stop Time Status Last Admin Dose Admin Acetaminophen (Tylenol Tab) 650 mg Q4H PRN PO 05/25/16 20:45 06/24/16 20:44 Zolpidem Tartrate (Ambien Tab) 5 mg HSZ PRN PO 05/25/16 20:45 06/24/16 20:44 Nitroglycerin (Nitrostat Tab) 0.4 mg UD PRN SL 05/25/16 20:45 06/24/16 20:44 Amlodipine Besylate (Norvasc Tab) 2.5 mg QAM PO 05/26/16 09:00 06/25/16 08:59 Future Hold 05/27/16 07:54 2.5 MG Aspirin (Ecotrin Tab) 81 mg QAM PO 05/26/16 09:00 06/25/16 08:59 05/30/16 07:56 81 MG Atorvastatin Calcium (Lipitor Tab) 20 mg QPM PO 05/25/16 21:00 06/24/16 20:59 05/29/16 21:33 20 MG Carvedilol (Coreg Tab) 18.75 mg BID PO 05/25/16 21:00 06/24/16 20:59 05/30/16 07:56 18.75 MG Gabapentin (Neurontin Cap) 400 mg TID PO 05/25/16 21:00 06/24/16 20:59 05/30/16 07:57 400 MG Oxycodone/ Acetaminophen (Percocet 10-325MG Tab) 1 tab Q6H PRN PO 05/25/16 20:45 06/08/16 20:44 05/30/16 07:56 1 TAB Ondansetron HCl (Zofran Inj) 4 mg Q6H PRN IV 05/25/16 20:45 06/24/16 20:44 Insulin Aspart (novoLOG ASPART) SLIDING SCALE If C... ACHS SC 05/25/16 21:00 06/24/16 20:59 05/30/16 08:46 6 UNITS Glucose (Glucose 40% Gel) UD PRN PO 05/25/16 20:45 06/24/16 20:44 Glucose (Glucose Chew Tab) 1 tabs UD PRN PO 05/25/16 20:45 06/24/16 20:44 Dextrose (Dextrose 50% 50ML Syringe) 50 ml UD PRN IV 05/25/16 20:45 06/24/16 20:44 Glucagon (Glucagon Inj) 1 mg UD PRN SQ 05/25/16 20:45 06/24/16 20:44 Miscellaneous Information (Consult Glycemic Management Pharmacy) 1 ea UD PRN N/A 05/29/16 10:00 06/28/16 09:59 Lisinopril (Zestril Tab) 20 mg QAM PO 05/30/16 08:00 06/29/16 08:59 05/30/16 07:57 20 MG Insulin Glargine (Lantus Solostar Pen) 50 unit DAILY SC 05/30/16 08:00 06/29/16 08:59 05/30/16 08:01 50 UNIT Impression (1) Chronic kidney disease, stage III (moderate) (2) Proteinuria (3) Diastolic CHF, acute (4) HTN (hypertension) (5) Fluid overload (6) Diabetes mellitus Mr. Green is a 60 year-old male with CKD III A3 (baseline creatinine 1.5-1.8 mg/dL). CKD consistent with diabetic nephropathy and likely hypertensive nephrosclerosis. He is mildly hypoalbuminemic. I cannot exclude paraproteinemia. He does have mild chronic anemia. He is not hypercalcemic to suggest myeloma. TTE notable for concentric LVH, diastolic dysfunction. Infiltrative cardiac disease not excluded. Renal US was negative for renal enlargement or hydronephrosis. Will check SPEP/immunofixation and UPEP. Recommendations CHRONIC KIDNEY DISEASE: -- Creatinine has stabilized at 1.7 w/ EGFR 42.9 cc/min -- Faulkner urine sediment -- Renal US report 05/24: 11.5 cm kidneys. No enlargement to suggest infiltrative disease. No hydronephrosis PROTEINURIA: -- Proteinuria likely related to DM -- Awaiting SIEP/UIEP and serum free light chains HYPERTENSION: -- Blood pressure is well controlled. Continue Lisinopril and Carvedilol CHF: -- Furosemide 20 mg po daily as directed by Cardiology -- Patient understands to take additional dose of Furosemide each day if he has lower extremity edema -- Discussed a 1500 mg / day sodium restricted diet OTHER: -- I have asked my nursing staffing coordinator to call patient and schedule a nephrology follow up office visit in 1 - 2 weeks w/ Dr. Villegas. I have placed order in [employer] for patient to have nonfasting blood work and urine sample completed 24 - 48 hours prior to nephrology visit.
[2016-05-30] MEDS ORDERED: CRG125 PO (11:41)
[2016-05-30] MEDS ORDERED: OXYC-106 PO (11:41)
[2016-05-30] MEDS ORDERED: INSDGI SC (11:41)
[2016-05-30] MEDS ORDERED: LSN20 PO (11:41)
--- NOTE | 2016-05-30 11:42 | Discharge Instructions ---
Discharge Instructions Admission Admission Date: May 25, 2016 at 20:46 Admission Diagnosis: [place] (Dyspnea On Exertion), Fluid Overload. Discharge Care Plan - Problem: Medical Problems: (1) Lower extremity edema Care Plan - Goal(s): Improve function Care Plan - Instructions: Recommended Home Diet: AHA Phase I (2gmNa/LoCho), Type 2 Diabetes AHA VTE Core Measure Inpt VTE Proph given/why not?: SCD's Laboratory Results Test Results: Hemoglobin A1c Test 05/29/16 06:02 Range/Units Estimated Average Glucose 212 mg/dl Hemoglobin A1c 9.0 H 4.5-5.6 % Kristen Tanner Recommendations: Call your doctor if: * Temperature above 101 degrees * Pain not relieved by pain medicine ordered * There is increased drainage or redness from any incision * You have any unanswered questions or concerns. Your Doctors Instructions noted above were prepared by provider Holli Pollard.
[2016-05-30 11:59] LABS: FREE KAPPA/LAMBDA RATIO 1.64 (0.26-1.65); FREE LAMBDA 27.4 MG/L (5.7-26.3)
[2016-05-30] MEDS ORDERED: INSDGIPEN SC (12:01)
[2016-05-30] MEDS ORDERED: NVLGIPEN SC (12:01)
[2016-05-30 12:35] VITALS: BP 111/65; PULSE 62; TEMP 36.7; O2SAT 94
--- NOTE | 2016-05-30 16:14 | Discharge Summary ---
Discharge Summary Date of Service May 30, 2016. Discharge Summary Admission Date: May 25, 2016 at 20:46 Discharge Date: May 30, 2016 Discharge Disposition: Home Principal Diagnosis: ACUTE ON CHRONIC DIASTOLIC CHF Problems/Secondary Diagnoses: EXERTIONAL SOB DMII INSULIN REQUIRING CHRONIC KIDNEY DISEASE/PROTEINURIA HYPERTENSION, currently hypotensive Medication Reconciliation New Medications: Carvedilol (Carvedilol) 12.5 Mg Tab 18.75 MG PO BID for 30 Days, #90 TAB Insulin Aspart (Novolog Flexpen) 100 Units/Ml Inj 15 UNITS SC TIDM for 30 Days, #3 PEN Insulin Glargine (Lantus Solostar) 100 Unit/Ml Inj 50 UNIT SC DAILY for 30 Days, #3 PEN Lisinopril (Lisinopril) 20 Mg Tab 20 MG PO QAM for 30 Days, #30 TAB Continued Medications: Aspirin (Aspirin Chewable) 81 Mg Chew 81 MG PO QAM, TAB Atorvastatin (Atorvastatin Calcium) 20 Mg Tab 20 MG PO QPM, #30 Gabapentin (Neurontin) 400 Mg Cap 1 CAP PO TID for 30 Days, #90 CAP TAKES 1 TAB IN AM AND 1 IN AFTERNOON AND 2 TAB IN PM Oxycodone/Acetaminophen 10MG/325MG (Percocet 10MG/325MG) Tab 1 TAB PO Q6H PRN for Pain for 30 Days, #20 TAB (This prescription has been renewed) Discontinued Medications: Amlodipine (Norvasc) 10 Mg Tab 10 MG PO QAM, TAB Carvedilol (Coreg) 6.25 Mg Tab 2 TAB PO BID, TAB Glipizide (Glipizide Er) 10 Mg Tab 1 TAB PO BID for 90 Days, #180 TAB 1 Refill Hydrochlorothiazide (Hctz) 25 Mg Tab 25 MG PO QAM, TAB Insulin Glargine (Lantus) 100 Unit/Ml Inj 50 UNITS SC DAILY for 30 Days, #1 VIAL Lisinopril (Zestril) 40 Mg Tab 40 MG PO QAM, TAB Metformin Hcl (Glucophage Ext Rel) 1,000 Mg Tab 1000 MG PO BID, TAB Discharge Exam Review of Systems: Constitutional: No chills, No fatigue, No fever, No problem reported, No sweats, No weakness, No weight loss Eyes: No diplopia, No discharge, No eye pain, No problem reported, No redness, No worsening of vision ENT: No dental problems, No hearing loss, No nasal symptoms, No problem reported, No sore throat, No tinnitus, No trouble swallowing, No unusual epistaxis Respiratory: No cough, No dyspnea at rest, No dyspnea on exertion, No hemoptysis, No problem reported, No shortness of breath, No sputum, No wheezing Cardiovascular: No PND, No chest pain, No claudication, No edema, No orthopnea, No palpitations, No problem reported Abdomen: No GI bleeding, No constipation, No diarrhea, No nausea, No pain, No problem reported, No vomiting Musculoskeletal: No calf pain, No joint pain, No muscle pain, No problem reported, No swelling Genitourinary - Male: No dysuria, No hematuria, No impotence, No lesions, No penile discharge, No problem reported, No urinary frequency, No urinary hesitancy, No urinary incontinence, No urinary retention, No urinary urgency Neurologic: No balance problems, No memory loss, No numbness/tingling, No paralysis, No problem reported, No vertigo, No weakness Psychiatric: No anhedonism, No anxiety, No depression symptoms, No insomnia , No problem reported, No substance abuse Endocrine: No excessive thirst, No excessive urination, No fatigue, No problem reported Hematologic / Lymphatic: No abnormal bleeding/bruising, No clotting problems , No night sweats, No problem reported, No swollen lymph nodes Integumentary: No bleeding, No color change, No itch, No new/changing skin lesions, No problem reported, No rash Physical Exam: General Appearance: WD/WN, no apparent distress Eyes: normal inspection, EOMI ENT: normal ENT inspection, hearing grossly normal, pharynx normal Neck: supple, no adenopathy Respiratory/Chest: chest non-tender, lungs clear, normal breath sounds, no respiratory distress Cardiovascular: regular rate, rhythm, no edema, no gallop, no JVD, no murmur , normal peripheral pulses Abdomen / GI: normal bowel sounds, non tender, soft, no organomegaly, no pulsatile mass, normal rectal exam Extremities: normal inspection, no calf tenderness, normal capillary refill , no pedal edema 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 HE WAS ADMITTED TO TELEMETRY his KAUR was found to be multifactorial; diastolic CHF, CKD and obesity hypoventilation syndrome improved,with medication adjustment. currently on lasix 20mg daily amlodipine was decreased to help with lower ext edema. 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 * There is moderate concentric left ventricular hypertrophy. * Ejection Fraction = 60-65%. * Left ventricular systolic function is normal. * The left ventricular wall motion is normal. * The right ventricle is normal in size and function. * The right ventricular systolic function is normal as assessed by tricuspid annular plane systolic excursion (TAPSE) (normal >1.5 cm). * Dilated inferior vena cava with reduced collapsability with sniff indicates an elevated right atrial pressure of 15 mmHg * Trivial pericardial effusion. * Indterminate E to e' ratio--can not exclude diastolic dysfunction Total Time Spent: Greater than 30 minutes This includes examination of the patient, discharge planning, medication reconciliation, and communication with other providers. Discharge Instructions Please refer to the electronic Patient Visit Report (Discharge Instructions) for additional information. Problem Qualifiers (1) Congestive heart failure (CHF): Congestive heart failure type: diastolic Congestive heart failure chronicity: acute Qualified Codes: I50.31 - Acute diastolic (congestive) heart failure (2) Lower extremity edema: Laterality: bilateral Qualified Codes: R60.0 - Localized edema
[2016-08-21] MEDS ORDERED: GLC/500 PO (08:26)
[2016-08-23] MEDS ORDERED: CEPH500C PO (13:28)
[2016-09-13] MEDS ORDERED: CEPH500C PO (13:36)
== END 2016-05-30 13:15 | disposition home or self-care (01) | DRG 291 ==
LOC: ENRESERVTM → CANRESERV → ENRESERVDT → C.EDB 16:33 → C.2T 20:46 → C.4E 05-29 12:56
PROVIDERS: ADMIT Hospitalist; ATTEND Internal Medicine
DX: I13.0 Hypertensive heart and chronic kidney disease with heart failure and stage 1 through stage 4 chronic kidney disease, or unspecified chronic kidney disease (principal); I50.33 Acute on chronic diastolic (congestive) heart failure; E66.2 Morbid (severe) obesity with alveolar hypoventilation; Z68.30 Body mass index [BMI] 30.0-30.9, adult; E78.00 Pure hypercholesterolemia, unspecified; E11.65 Type 2 diabetes mellitus with hyperglycemia; Z79.4 Long term (current) use of insulin; Z79.82 Long term (current) use of aspirin; Z79.899 Other long term (current) drug therapy; E11.40 Type 2 diabetes mellitus with diabetic neuropathy, unspecified; M51.36 Other intervertebral disc degeneration, lumbar region; M19.90 Unspecified osteoarthritis, unspecified site; N18.3 Chronic kidney disease, stage 3 (moderate); F17.220 Nicotine dependence, chewing tobacco, uncomplicated; E78.5 Hyperlipidemia, unspecified; D64.9 Anemia, unspecified; E11.319 Type 2 diabetes mellitus with unspecified diabetic retinopathy without macular edema

== ENCOUNTER → 2016-06-07 | Day surgery (SDC) | payer OTHER ==
[2016-05-10 15:04] VITALS: Ht 188 cm; Wt 109.1 kg
[~2016-06-07] VITALS: Ht 188 cm; Wt 109.1 kg
[~2016-06-07] MED LIST changes: -AMLO-114 PO; -CARV6.252 PO; +CEPH500C PO; +CRG125 PO; +CRG25 PO; +CYCL10TA6 PO; +FNTTP50 TOP; +GLC/500 PO; -GLIP-199 PO; +HYDR-4079 PO; -HYDR25TA4 PO; -INSDGI SC; +INSDGIPEN SC; -LISI40TA PO; +LPT/20 PO; +LSN20 PO; -METF1TAB53 PO; +NVLGI/PEN SC; +NVLGIPEN SC
== END | disposition home or self-care (01) ==
LOC: EDSTATUS 08:15 → C.PAT 12:40
PROVIDERS: ATTEND Orthopaedic Surgery
DX: M75.100 Unspecified rotator cuff tear or rupture of unspecified shoulder, not specified as traumatic (principal)

== ENCOUNTER → 2016-06-12 | Outpatient (CLI) | payer OTHER ==
[2016-06-12 12:42] LABS: BLOOD UREA NITROGEN 24 mg/dl (7-18); CALCIUM 8.5 mg/dl (8.5-10.1); CARBON DIOXIDE 26 mmol/L (21-32); CHLORIDE 106 mmol/L (98-107); GLUCOSE 145 mg/dl (70-99); MAGNESIUM 2.3 mg/dl (1.8-2.4); PHOSPHORUS 2.6 mg/dl (2.5-4.9); POTASSIUM 4.4 mmol/L (3.5-5.1); SODIUM 139 mmol/L (136-145)
== END | disposition home or self-care (01) ==
LOC: C.LAB1850 11:21
PROVIDERS: ATTEND Internal Medicine Nephrology
DX: N18.3 Chronic kidney disease, stage 3 (moderate) (principal)

== ENCOUNTER → 2016-06-25 | Outpatient (CLI) | payer OTHER ==
[2016-06-25 13:22] LABS: BLOOD UREA NITROGEN 35 mg/dl (7-18); BUN/CREATININE RATIO 20.8 (10-20); CALCIUM 8.9 mg/dl (8.5-10.1); CARBON DIOXIDE 25 mmol/L (21-32); CHLORIDE 102 mmol/L (98-107); GLUCOSE 279 mg/dl (70-99); POTASSIUM 4.2 mmol/L (3.5-5.1); SODIUM 137 mmol/L (136-145)
== END | disposition home or self-care (01) ==
LOC: C.LABPBG 07:45
PROVIDERS: ATTEND Internal Medicine Endocrinology, Diabetes & Metabolism
DX: E11.8 Type 2 diabetes mellitus with unspecified complications (principal)

== ENCOUNTER → 2016-07-26 | Outpatient (CLI) | payer OTHER ==
[2016-07-26 12:52] LABS: CALCIUM 8.9 mg/dl (8.5-10.1)
[2016-07-26 13:01] LABS: BLOOD UREA NITROGEN 27 mg/dl (7-18); CARBON DIOXIDE 26 mmol/L (21-32); CHLORIDE 108 mmol/L (98-107); GLUCOSE 126 mg/dl (70-99); POTASSIUM 4.5 mmol/L (3.5-5.1); SODIUM 141 mmol/L (136-145)
== END | disposition home or self-care (01) ==
LOC: C.LABPBG 07:52
PROVIDERS: ATTEND Internal Medicine Endocrinology, Diabetes & Metabolism
DX: E11.21 Type 2 diabetes mellitus with diabetic nephropathy (principal)

== ENCOUNTER → 2016-08-30 | Outpatient (CLI) | payer OTHER ==
[2016-08-30 12:08] LABS: HEMATOCRIT 38.6 % (42-52)
[2016-08-30 12:27] LABS: BLOOD UREA NITROGEN 24 mg/dl (7-18); CALCIUM 9.1 mg/dl (8.5-10.1); CARBON DIOXIDE 27 mmol/L (21-32); CHLORIDE 108 mmol/L (98-107); CHOLESTEROL 148 mg/dl (0-200); GLUCOSE 74 mg/dl (70-99); POTASSIUM 4.2 mmol/L (3.5-5.1); SODIUM 141 mmol/L (136-145); TRIGLYCERIDES 209 mg/dl (0-150); VERY LOW DENSITY LIPOPROT CALC 42 mg/dl
[2016-08-30 12:30] LABS: CHOLESTEROL/HDL RATIO 4.2; HDL CHOLESTEROL 35 mg/dl; LDL CHOLESTEROL CALCULATED 71 mg/dl
[2016-08-30 12:50] LABS: ESTIMATED AVERAGE GLUCOSE 203 mg/dl; HA1C FLAG Normal (Normal)
== END | disposition home or self-care (01) ==
LOC: C.LABPBG 07:34
PROVIDERS: ATTEND Internal Medicine Nephrology
DX: N18.3 Chronic kidney disease, stage 3 (moderate) (principal); E11.8 Type 2 diabetes mellitus with unspecified complications; Z79.4 Long term (current) use of insulin

== ENCOUNTER 2016-09-25 12:02 | Emergency (ER) | payer OTHER ==
[~2016-09-25] VITALS: Ht 188 cm; Wt 111.0 kg
[~2016-09-25 12:02] MED LIST changes: -CRG25 PO; -CYCL10TA6 PO; -FNTTP50 TOP; -HYDR-4079 PO; -NVLGI/PEN SC
[2016-09-25 12:06] VITALS: BP 161/82; PULSE 74; TEMP 36.7; O2SAT 97; Ht 188 cm; Wt 111.0 kg
[2016-09-25] MEDS ORDERED: CRG25 PO (12:25)
[2016-09-25] MEDS ORDERED: HYDR-4079 PO (12:25)
[2016-09-25] MEDS ORDERED: FNTTP50 TOP (12:25)
[2016-09-25] MEDS ORDERED: NVLGI/PEN SC (12:25)
[2016-09-25] MEDS ORDERED: INSDGIPEN SC (12:25)
[2016-09-25] MEDS ORDERED: CYCL10TA6 PO (12:52)
--- NOTE | 2016-09-25 16:49 | EMERGENCY ROOM VISIT NOTE ---
History First contact with patient: 12:15 Chief Complaint: BACK PAIN Stated Complaint: LOWER BACK History of Present Illness The patient is a 60 year old male who presents to the Emergency Room with complaints of lower back pain since attempting to remove his T-shirt this past Saturday, and developing discomfort. The patient reports that it has not gone away. The patient has a history of chronic lower back pain. His PCP was Dr. Montgomery before she left more maternity leave. He last saw LYNSEY Smith who provided a prescription for fentanyl patches. He also reports that he recently received a prescription for hydrocodone. He reports that his back still feels tight. The patient reports mild discomfort radiating into bilateral buttocks. The pain does not extend into the lower extremities. He has not noticed any lateral incontinence, lower extremity weakness, saddle anesthesias or foot drop. The patient has been evaluated in the past by Dr. Alexandra and the [facility]. The pain is worsened when he sits for long periods of time or lifts anything. He rates his discomfort a 4 out of 10. Review of Systems 10 system review was performed and was negative except for pertinent positives and negatives as indicated in history of present illness Past Medical/Surgical History Medical Problems: (1) Chronic kidney disease, stage III (moderate) (2) Congestive heart failure (CHF) (3) Diabetes mellitus (4) Diastolic CHF, acute (5) KAUR (dyspnea on exertion) (6) Fluid overload (7) HTN (hypertension) (8) Hypercholesterolemia (9) Proteinuria Surgical Problems: (1) Status post lateral meniscus repair Family History Unremarkable Social History Smoking Status: Never Smoker Alcohol Use: occasionally Drug Use: none Marital Status: Occupation Status: disabled Current/Historical Medications Scheduled Aspirin (Aspirin Chewable), 81 MG PO QAM Atorvastatin (Atorvastatin Calcium), 20 MG PO QPM Carvedilol (Carvedilol), 12.5 MG PO DAILY Cephalexin Monohydrate (Keflex), 500 MG PO TID Cyclobenzaprine Hcl (Flexeril), 10 MG PO TID Fentanyl (Duragesic), 50 PATCH TOP [id number] Gabapentin (Neurontin), 1 CAP PO TID Insulin Aspart (Novolog Flexpen), SC TIDM Insulin Glargine (Lantus Solostar), 55 UNITS SC DAILY Lisinopril (Lisinopril), 20 MG PO QAM Metformin Hcl (Glucophage), 500 MG PO DAILY Scheduled PRN Hydrocodone/Acetaminophen 10MG/325MG ([place] 10MG/325MG), 1 TAB PO Q6 PRN for Pain Physical Exam Vital Signs Date Time Temp Pulse Resp B/P (MAP) Pulse Ox O2 Delivery O2 Flow Rate FiO2 09/25/16 12:06 36.7 74 16 161/82 97 Room Air Pain Rating (0-10): 5.0 Physical Exam CONSTITUTIONAL: Healthy and well nourished. Alert and oriented X 3 with positive affect. She does not appear in any acute distress. HEENT: Normocephalic, atraumatic. Pupils equal, round and reactive. NECK: Full active range of motion without discomfort. RESPIRATORY: Clear to auscultation bilaterally with no wheezing, crackles, rhonchi or stridor. CARDIOVASCULAR: Regular rate and rhythm with no murmurs, rubs or gallops. GASTROINTESTINAL: Bowel sounds present in all quadrants. Soft and nontender to palpation. MUSCULOSKELETAL: Examination shows mild tenderness through the lower lumbar region, and SI joints. Negative logroll. Negative sitting straight leg raise. Ankle plantar/dorsiflexion strength is 5 out of 5 and symmetric bilaterally. Pedal pulses are intact. INTEGUMENTARY: No rash or other significant dermatologic conditions noted. NEUROLOGIC: No focal neurologic deficits noted. Lower extremities are sensory intact, and deep tendon reflexes are 2+ and symmetric bilaterally. Medical Decision & Procedures ED Course Patient history and physical exam were performed. Nurse's notes were reviewed. Vital signs were reviewed and normal. It does not appear in any significant distress. The patient was offered a prescription for a muscle relaxer. He reports that must relaxers have worked well in the past. He understands that the emergency department would not provide any additional narcotic prescriptions. Review of the [facility] prescription and Drug Monitoring Program does show that the patient has received been prescribed a month's supply of hydrocodone and fentanyl patches. The patient was provided a prescription for Flexeril. He was given additional verbal instructions for back care. I did encourage him to follow-up with his PCP, pain clinic and/or spine surgeon for further reevaluation. The patient was happy with plan of care , voiced understanding of all discharge instructions, and refused any analgesics while in the emergency department as he drove here. Medical Decision Patient presents to the emergency department with symptoms consistent with acute exacerbation of chronic back pain. He gives no history, nor does he have physical exam findings to suggest an acute compressive neuropathy, conus medullaris or cauda equina syndrome. I do not suspect spinal hematoma or abscess. [facility] Drug Monitoring Program Search Results: patient reviewed within database, no issues identified, see additional documentation Medication Reconcilliation Current Medication List: was personally reviewed by me Blood Pressure Screening Patient's blood pressure: Normal blood pressure Impression Primary Impression: Acute exacerbation of chronic low back pain Departure Information Dispostion Home / Self-Care Condition GOOD Prescriptions Cyclobenzaprine Hcl (FLEXERIL) 10 Mg Tab 10 MG PO TID for spasm, #30 TAB Prov: David Solano PA 09/25/16 Forms HOME CARE DOCUMENTATION FORM, IMPORTANT VISIT INFORMATION Patient Instructions [facility] Additional Instructions Take Flexeril every 8 hours as needed for muscle tightness/pain. Continue with your current pain medications as prescribed by your PCP. Suggest calling your family doctor's office for an appointment area Return to the emergency department for any significant and pronounced leg weakness, numbness of your inner thighs/pubic region or bladder/bowel incontinence.
== END 2016-09-25 13:05 | disposition home or self-care (01) ==
LOC: C.EDB 12:04 → C.EDD 13:05
DX: M54.5 Low back pain (principal); G89.29 Other chronic pain; I12.9 Hypertensive chronic kidney disease with stage 1 through stage 4 chronic kidney disease, or unspecified chronic kidney disease; N18.3 Chronic kidney disease, stage 3 (moderate); E11.22 Type 2 diabetes mellitus with diabetic chronic kidney disease; E78.00 Pure hypercholesterolemia, unspecified; Z98.890 Other specified postprocedural states; Z79.4 Long term (current) use of insulin; Z79.82 Long term (current) use of aspirin; Z79.84 Long term (current) use of oral hypoglycemic drugs; Z79.899 Other long term (current) drug therapy

== ENCOUNTER → 2016-10-12 | Outpatient (CLI) | payer OTHER ==
[~2016-10-12] MED LIST changes: -CEPH500C PO; -CRG125 PO; +CRG25 PO; +FNTTP50 TOP; +GADAVIST IV PRN; +HYDR-4079 PO; +NVLGI/PEN SC; -NVLGIPEN SC; -OXYC-106 PO
--- NOTE | 2016-10-12 12:07 | DIAGNOSTIC IMAGING REPORT ---
LUMBAR SPINE COMBINATION HISTORY: Back pain. Arthritis. M54.5 Low back painM54.16 Lumbar [id number] Arthritis o TECHNIQUE: Multiplanar multisequence MRI of the lumbar spine was performed both before and after the intravenous administration of contrast. COMPARISON: 03/23/2015 FINDINGS: For the purpose of the report the L5-S1 disc space will be located on axial image 27 of 30. Normal signal characteristics vertebral bodies. Moderate degenerative disc change L3-S1. No abnormal postcontrast enhancement. L1-L2: No significant central canal or neural foraminal narrowing. L2-L3: No significant central canal or neural foraminal narrowing. L3-L4: Mild broad-based right central disc bulge. Minimal impact anterior thecal sac with minimal narrowing right neuroforamina. L4-L5: Broad-based bulging disc with mild impact anterior thecal sac. Mild narrowing right neuroforamina. L5-S1: Mild broad-based bulging disc. No impact upon the thecal sac. Minimal narrowing neuroforamina bilaterally. IMPRESSION: 1. Moderate degenerative disc change from L3 through S1. 2. Minimal/mild disc bulges L3-S1. 3. No significant disc herniation or significant component of spinal stenosis. 4. No major change compared to the prior study. The above report was generated using voice recognition software. It may contain grammatical, syntax or spelling errors. Electronically signed by: Jerald Rivera M.D. 10/12/2016 12:06 PM Dictated Date/Time: 10/12/2016 12:03 PM
[2016-10-12 14:21] LABS: ISTAT CREATININE 1.5 mg/dl (0.6-1.3); ISTAT HEMOGLOBIN 13.3 g/dl (14.0-18.0); ISTAT IONIZED CALCIUM 1.21 mmol/l (1.12-1.32)
== END | disposition home or self-care (01) ==
LOC: C.MRI 09:50
PROVIDERS: ATTEND Family Medicine
DX: M46.96 Unspecified inflammatory spondylopathy, lumbar region (principal); M54.16 Radiculopathy, lumbar region; M51.36 Other intervertebral disc degeneration, lumbar region; M51.37 Other intervertebral disc degeneration, lumbosacral region

== ENCOUNTER → 2016-11-08 | Outpatient (CLI) | payer OTHER ==
[~2016-11-08] MED LIST changes: -GADAVIST IV PRN
--- NOTE | 2016-11-08 23:40 | CONSULTATION REPORT ---
DATE OF CONSULTATION: 11/08/2016 REASON FOR CONSULTATION: Nonhealing ulcer, left ear. HISTORY OF PRESENT ILLNESS: The patient is a 61-year-old male who I am asked to see at the wound care center regarding possible biopsy of his ear. The ulcer has been present approximately 2 years. He was evaluated by his primary care physician and was treated with Neosporin at the site. With the wound failing to heal, he was referred to the wound care center for further management. He has never had any similar ulcerations. There is no history of skin cancer, no history of blistering ____. There is a family history significant for skin malignancy however. He states that he has difficulties with his rotator cuff and on the right side and is unable to sleep prone or on his right side. He feels he does sleep on the left frequently and this has contributed to the ulceration and discomfort he experiences. Of note, he is an insulin-dependent diabetic with A1c in the 8 range. He denies any other complaints today, such as neck swelling. PAST MEDICAL HISTORY: Significant for insulin-dependent diabetes, diabetic neuropathy, nephropathy, retinopathy, congestive heart failure, hyperlipidemia, hypertension, diverticulosis, stage III chronic kidney disease, osteoarthritis. There is a history of prior right shoulder and left knee surgery. ALLERGIES: He has no known drug allergies. MEDICATIONS: Include aspirin, carvedilol, Neurontin, insulin plus NovoLog and Lantus, lisinopril, Glucophage and Percocet as needed. SOCIAL HISTORY: Significant for use of snuff. FAMILY HISTORY: Significant for skin malignancy as noted, otherwise noncontributory. REVIEW OF SYSTEMS: As noted in the HPI. PHYSICAL EXAMINATION: GENERAL: Today shows a 61-year-old male in no acute distress. He is afebrile with stable vital signs. HEAD AND NECK: Shows a 1.6 x 1.4 cm superficial ulceration of the left ear helix along the helical rim and posterior aspect of the ear. There is minimal granulation tissue present. Tissue is pale pink with surrounding maceration. LYMPH NODE: Shows no palpable cervical or postauricular adenopathy. PSYCHIATRIC: Shows he is awake, alert and oriented x3 with normal mood and affect. DATA: Wound culture was obtained at a prior visit at the time of debridement, which shows methicillin-sensitive Staph aureus. IMPRESSION: Suspect skin malignancy, likely squamous cell carcinoma, another consideration would be chondrodermatitis nodularis helicis; however, this does appear to be an open ulceration, most likely consistent with malignancy. We discussed that a biopsy should be performed and pending biopsy results, further treatment will be recommended. Given the location and longevity as well as size of the lesion, would consider referral for Mohs surgery if positive. Verbal consent was obtained from the patient for biopsy. PROCEDURE NOTE: The skin was prepped with Betadine. 1% lidocaine plain was used to anesthetize the area. A 10 blade scalpel was used to perform a shave biopsy, incorporating normal peripheral skin as well as the ulceration. Hemostasis was achieved using silver nitrate and Surgicel. Dressing was applied. The procedure was tolerated well. I will contact the patient with pathology.
== END | disposition home or self-care (01) ==
LOC: C.PATHSPEC 17:11
PROVIDERS: ATTEND Plastic Surgery
DX: C44.219 Basal cell carcinoma of skin of left ear and external auricular canal (principal)

== ENCOUNTER → 2016-12-07 | Outpatient (CLI) | payer OTHER ==
[2016-12-07 12:11] LABS: BASO % 0.3 %; BASO ABS # 0.02 K/uL (0-0.2); COMPLETE YES; EOS % 4.7 %; HEMATOCRIT 36.9 % (42-52); IG% 0.3 %; LYMPH % 21.7 %; MEAN CELL VOLUME 82.9 fL (80-100); MEAN CORPUSCULAR HGB CONC 32.5 g/dl (32-36); MEAN PLATELET VOLUME 10.6 fL (7.4-10.4); MONO % 9.8 %; NEUT % 63.2 %; PLATELET COUNT 252 K/uL (130-400); RED BLOOD COUNT 4.45 M/uL (4.7-6.1); WHITE BLOOD COUNT 6.45 K/uL (4.8-10.8)
[2016-12-07 12:25] LABS: URINE APPEARANCE CLEAR (CLEAR); URINE BILIRUBIN NEG (NEG); URINE COLOR YELLOW; URINE EPITHELIAL CELL AUTO 0-5 /lpf (0-5); URINE NITRITE NEG (NEG); URINE SPECIFIC GRAVITY 1.019 (1.000-1.030); UROBILINOGEN NEG (NEG); ZZUR CULT IF INDIC CLEAN CATCH NO
[2016-12-07 12:27] LABS: MANUAL MICROSCOPIC REQUIRED? NO; REVIEW REQ? NO
[2016-12-07 12:29] LABS: ALT/SGPT 24 U/L (12-78); AST/SGOT 16 U/L (15-37); BLOOD UREA NITROGEN 32 mg/dl (7-18); BUN/CREATININE RATIO 21.4 (10-20); CALCIUM 9.3 mg/dl (8.5-10.1); CARBON DIOXIDE 27 mmol/L (21-32); CHLORIDE 109 mmol/L (98-107); GLUCOSE 127 mg/dl (70-99); MAGNESIUM 2.1 mg/dl (1.8-2.4); POTASSIUM 4.3 mmol/L (3.5-5.1); SODIUM 141 mmol/L (136-145); URINE PROTIEN/CREAT RATIO 0.9 (0-0.2); URINE TOTAL PROTEIN 58.6 mg/dl (0-11.9)
[2016-12-07 12:33] LABS: ALB/GLOB RATIO 0.8 (0.9-2); ALKALINE PHOSPHATASE 63 U/L (45-117); CHOLESTEROL 131 mg/dl (0-200); CHOLESTEROL/HDL RATIO 3.6; HDL CHOLESTEROL 36 mg/dl; LDL CHOLESTEROL CALCULATED 53 mg/dl; TRIGLYCERIDES 212 mg/dl (0-150); VERY LOW DENSITY LIPOPROT CALC 42 mg/dl
== END | disposition home or self-care (01) ==
LOC: C.LABPBG 08:24
PROVIDERS: ATTEND Internal Medicine Nephrology
DX: E11.22 Type 2 diabetes mellitus with diabetic chronic kidney disease (principal); N18.3 Chronic kidney disease, stage 3 (moderate); E11.21 Type 2 diabetes mellitus with diabetic nephropathy

== ENCOUNTER → 2017-01-16 | Outpatient (CLI) | payer OTHER ==
[2017-01-16 12:13] LABS: ALT/SGPT 22 U/L (12-78); AST/SGOT 19 U/L (15-37); BLOOD UREA NITROGEN 18 mg/dl (7-18); BUN/CREATININE RATIO 11.2 (10-20); CALCIUM 9.1 mg/dl (8.5-10.1); CARBON DIOXIDE 28 mmol/L (21-32); CHLORIDE 105 mmol/L (98-107); GLUCOSE 98 mg/dl (70-99); POTASSIUM 4.3 mmol/L (3.5-5.1); SODIUM 142 mmol/L (136-145)
[2017-01-16 12:23] LABS: ALB/GLOB RATIO 0.8 (0.9-2); ALKALINE PHOSPHATASE 79 U/L (45-117)
== END | disposition home or self-care (01) ==
LOC: C.LABPBG 07:43
PROVIDERS: ATTEND Internal Medicine Nephrology
DX: N18.3 Chronic kidney disease, stage 3 (moderate) (principal); E11.8 Type 2 diabetes mellitus with unspecified complications; Z79.4 Long term (current) use of insulin; I50.30 Unspecified diastolic (congestive) heart failure

== ENCOUNTER → 2017-02-04 | Outpatient (CLI) | payer OTHER ==
[2017-02-04 12:52] LABS: BLOOD UREA NITROGEN 31 mg/dl (7-18); CREATININE 1.89 mg/dl (0.60-1.40); GLUCOSE 176 mg/dl (70-99)
[2017-02-04 12:53] LABS: BUN/CREATININE RATIO 16.2 (10-20); CALCIUM 9.3 mg/dl (8.5-10.1); CARBON DIOXIDE 27 mmol/L (21-32); CHLORIDE 100 mmol/L (98-107); POTASSIUM 4.4 mmol/L (3.5-5.1); SODIUM 136 mmol/L (136-145)
== END | disposition home or self-care (01) ==
LOC: C.LABPBG 10:42
PROVIDERS: ATTEND Internal Medicine Nephrology
DX: I50.30 Unspecified diastolic (congestive) heart failure (principal)

== ENCOUNTER → 2017-04-16 | Outpatient (CLI) | payer OTHER ==
[~2017-04-16] MED LIST changes: +GABA-1220 PO; -GABA1CAP5 PO; -LPT/20 PO; +LPT20 PO
[2017-04-16 13:25] LABS: BASO % 0.4 %; BASO ABS # 0.03 K/uL (0-0.2); EOS % 3.4 %; EOS ABS # 0.29 K/uL (0-0.5); HEMATOCRIT 36.6 % (42-52); HEMOGLOBIN 12.1 g/dL (14.0-18.0); IG# 0.02 K/uL (0.00-0.02); LYMPH % 14.1 %; LYMPH ABS # 1.21 K/uL (1.2-3.4); MEAN CORPUSCULAR HEMOGLOBIN 26.8 pg (25-34); MEAN CORPUSCULAR HGB CONC 33.1 g/dl (32-36); MEAN PLATELET VOLUME 10.7 fL (7.4-10.4); MONO % 8.3 %; MONO ABS # 0.71 K/uL (0.11-0.59); NEUT % 73.6 %; NEUT ABS # 6.31 K/uL (1.4-6.5); PLATELET COUNT 293 K/uL (130-400); RED CELL DISTRIBUTION WIDTH CV 14.3 % (11.5-14.5); RED CELL DISTRIBUTION WIDTH SD 42.3 fL (36.4-46.3); WHITE BLOOD COUNT 8.57 K/uL (4.8-10.8)
[2017-04-16 14:04] LABS: ALBUMIN 3.1 gm/dl (3.4-5.0); BLOOD UREA NITROGEN 15 mg/dl (7-18); CALCIUM 8.9 mg/dl (8.5-10.1); CARBON DIOXIDE 25 mmol/L (21-32); CREATININE 1.68 mg/dl (0.60-1.40); GLUCOSE 238 mg/dl (70-99); POTASSIUM 4.3 mmol/L (3.5-5.1); SODIUM 133 mmol/L (136-145)
[2017-04-16 14:11] LABS: HEMOGLOBIN A1C 8.6 % (4.5-5.6)
[2017-04-16 14:12] LABS: TRANSFERRIN 237 mg/dl (200-360)
== END | disposition home or self-care (01) ==
LOC: C.LABPBG 09:54
PROVIDERS: ATTEND Internal Medicine Endocrinology, Diabetes & Metabolism
DX: N18.3 Chronic kidney disease, stage 3 (moderate) (principal); E11.40 Type 2 diabetes mellitus with diabetic neuropathy, unspecified; E11.22 Type 2 diabetes mellitus with diabetic chronic kidney disease

== ENCOUNTER → 2017-05-27 | Outpatient (CLI) | payer OTHER ==
[2017-05-27 14:36] LABS: ALBUMIN 3.1 gm/dl (3.4-5.0); BLOOD UREA NITROGEN 18 mg/dl (7-18); CALCIUM 8.9 mg/dl (8.5-10.1); CARBON DIOXIDE 31 mmol/L (21-32); CREATININE 1.72 mg/dl (0.60-1.40); GLUCOSE 93 mg/dl (70-99); POTASSIUM 4.5 mmol/L (3.5-5.1); SODIUM 138 mmol/L (136-145)
[2017-05-27 14:39] LABS: PHOSPHORUS 4.3 mg/dl (2.5-4.9)
== END | disposition home or self-care (01) ==
LOC: C.LABPBG 07:51
PROVIDERS: ATTEND Internal Medicine Nephrology
DX: N18.3 Chronic kidney disease, stage 3 (moderate) (principal)

== ENCOUNTER → 2017-06-18 | Outpatient (CLI) | payer OTHER ==
--- NOTE | 2017-06-18 16:53 | DIAGNOSTIC IMAGING REPORT ---
CHEST 2 VIEWS ROUTINE CLINICAL HISTORY: COUGH, CHRONIC DIASTOLIC CONGESTIVE HEART FAILURE COMPARISON STUDY: 05/25/2016 FINDINGS: The heart is borderline enlarged. There is no current evidence of failure. There is no focal pulmonary consolidation. There are no pleural effusions.[ IMPRESSION: No active disease in the chest. Electronically signed by: Terry Hernandez M.D. 06/18/2017 4:52 PM Dictated Date/Time: 06/18/2017 4:52 PM
== END | disposition home or self-care (01) ==
LOC: C.RAD 16:28
PROVIDERS: ATTEND Internal Medicine Cardiovascular Disease
DX: I50.32 Chronic diastolic (congestive) heart failure (principal); R05 Cough

== ENCOUNTER → 2017-10-23 | Outpatient (CLI) | payer OTHER ==
[~2017-10-23] MED LIST changes: +LISI-726 PO; -LSN20 PO
[2017-10-23 16:50] LABS: ALBUMIN 3.4 gm/dl (3.4-5.0); BLOOD UREA NITROGEN 34 mg/dl (7-18); CALCIUM 9.9 mg/dl (8.5-10.1); CARBON DIOXIDE 27 mmol/L (21-32); CREATININE 2.47 mg/dl (0.60-1.40); GLUCOSE 274 mg/dl (70-99); PHOSPHORUS 3.1 mg/dl (2.5-4.9); POTASSIUM 4.4 mmol/L (3.5-5.1); SODIUM 136 mmol/L (136-145)
== END | disposition home or self-care (01) ==
LOC: C.LABPBG 10:29
PROVIDERS: ATTEND Internal Medicine Nephrology
DX: N18.3 Chronic kidney disease, stage 3 (moderate) (principal)

== ENCOUNTER 2018-07-16 11:17 | Inpatient (IN) ==
[2018-07-16] MEDS ORDERED: SODIUM CHLORIDE 0.9% 500 ML IV SCH (11:45)
[2018-07-16 11:56] LABS: Basophils # (auto) 0.03 K/uL (0-0.2); Basophils % (auto) 0.3 %; Eosinophils # (auto) 0.14 K/uL (0-0.5); Eosinophils % (auto) 1.2 %; Hematocrit (blood only) 37.5 % (42-52); Hemoglobin 12.7 g/dL (14.0-18.0); Immature Granulocytes # (auto) 0.05 K/uL (0.00-0.02); Immature Granulocytes % (auto) 0.4 %; Lymphocytes # (auto) 1.67 K/uL (1.2-3.4); Lymphocytes % (auto) 14.1 %; Mean Corpuscular Hgb Conc 33.9 g/dL (32-36); Mean Corpuscular Volume 83.9 fL (80-100); Mean Platelet Volume 9.9 fL (7.4-10.4); Monocytes # (auto) 1.07 K/uL (0.11-0.59); Platelet Count 317 K/uL (130-400); RDW Coefficient of Variation 15.5 % (11.5-14.5); RDW Standard Deviation 47.5 fL (36.4-46.3); Red Blood Count 4.47 M/uL (4.7-6.1); White Blood Count 11.86 K/uL (4.8-10.8)
--- NOTE | 2018-07-16 12:16 | XRay Report ---
XR chest 1V portable CLINICAL HISTORY: 62 years-old Male presenting with Chest Pain. TECHNIQUE: Portable upright AP view of the chest was obtained. COMPARISON: 05/25/2016. FINDINGS: Cardiomediastinal silhouette normal. No focal opacity. No large effusion or pneumothorax. Osseous str uctures normal. Upper abdomen normal. IMPRESSION: 1. No acute cardiopulmonary disease. Electronically signed by: Obinna Mckinley M.D. 07/16/2018 12:15 PM
[2018-07-16 12:18] LABS: Alanine Aminotransferase 21 U/L (12-78); Albumin Globulin Ratio 0.8 (0.9-2); Albumin Level 3.5 gm/dl (3.4-5.0); Alkaline Phosphatase 67 U/L (45-117); Aspartate Aminotransferase 30 U/L (15-37); BUN Creatinine Ratio 11.2 (10-20); Bilirubin Direct 0.2 mg/dl (0-0.2); Bilirubin,Total 0.5 mg/dl (0.2-1); Blood Urea Nitrogen 56 mg/dl (7-18); Carbon Dioxide 27 mmol/L (21-32); Chloride 95 mmol/L (98-107); Creatinine Clr Calc Pharmacy 21.7 ml/min; Est GFR (African American) 13.3; Est GFR (Non-African American) 11.5; Globulin 4.2 gm/dl (2.5-4.0); Glucose 104 mg/dl (70-99); Magnesium 2.7 mg/dl (1.8-2.4); Phosphorus 3.6 mg/dl (2.5-4.9); Potassium 3.7 mmol/L (3.5-5.1); Sodium 133 mmol/L (136-145); Total Protein 7.7 gm/dl (6.4-8.2); Troponin I < 0.015 ng/ml (0-0.045)
[2018-07-16] MEDS ORDERED: SODIUM CHLORIDE 0.9% 500 ML IV STA (12:53)
--- NOTE | 2018-07-16 14:35 | History & Physical Report ---
Date of Service July 16, 2018 Assessment & Plan (1) Hypotension: This patient is a 62-year-old male with history of CKD stage III-IV, DM 2, HTN, mild chronic anemia, chronic diastolic CHF, OA, chronic lower back pain, hypothyroidism, diabetic peripheral neuropathy, nephrolithiasis, and a RLE DVT in 09/2017, who presented after being directed to the ER by his forestry professor today. He went for his regular appointment after waking up and feeling very lightheaded. In the nephrology office, he was found to be hypotensive reportedly at 80/56 sitting and 70/50 with standing. An ECG was done which showed atrial tachycardia with a rate of 126. He denied any chest pain or shortness of breath. He denied headache or numbness or tingling over his usual in the feet. No focal weakness. He does report that yesterday he did not drink much at all day-he does not know why-he denies nausea or vomiting, denies recent fevers/chills/sweats or any other acute issues. He denies any issues with urinary retention. He continued to take his usual furosemide 80 mg p.o. twice daily. His blood work that was just performed 2 days ago showed stable creatinine at 2.1, but labs in the ER showed a creatinine of 4.99 today. Electrolytes were otherwise normal except for mildly low sodium at 133. His WBC count was mildly elevated at 11, troponin was negative. His chest x-ray was negative. He was given IV fluids and felt much improved. His blood pressures were then actually hypertensive when I saw him. He will be admitted for acute kidney injury, hypotension, and atrial tachycardia. Hypotension-likely secondary to taking diuretics in the setting of poor p.o. intake and chronic kidney disease. Now improved with IV fluid hydration -Admit to telemetry -Continue gentle IV fluids at 70 mL's per hour of normal saline -Follow blood pressures -Holding furosemide (2) BE (acute kidney injury): Baseline creatinine around 2.1, now up to 4.99 on admission-BUN is also elevated which indicates that this is most likely prerenal in nature secondary to dehydration from poor p.o. intake and continuing to take his diuretics. Electrolytes all stable at this time. He is making urine. There is no evidence of urinary obstruction on CT scan of the abdomen/pelvis. I discussed the case with nephrology upon admission. -Continue to fluid hydrate with normal saline at 70 mL's per hour -Consult nephrology -Follow BMP this evening and again in the morning -Holding furosemide -Will renally dose gabapentin at decreased dose of 400 mg once daily -will also reduce his insulin dosing given the acute kidney injury (3) Atrial tachycardia: ECG from the office was faxed over and reviewed which shows tachycardia which is likely sinus but the P wave is buried in the T wave due to a significantly prolonged WA interval-the rate was 126. -This is likely a secondary response to the profound hypotension that he had although he does have frequent PACs on ECG here -We will consult cardiology for further evaluation of abnormal appearing ECGs -Monitor on telemetry Giving IV fluids for hypotension as above (4) Chronic kidney disease, stage III (moderate): Baseline creatinine around 2.1, chronic kidney disease stage III-IV and is secondary to diabetic nephropathy and hypertensive nephrosclerosis -Follows with nephrology -Consulting nephrology as above -Renally dose all medications -Avoid nephrotoxins -Follow BMP (5) Congestive heart failure (CHF): With chronic diastolic CHF-maintained typically on Lasix He is volume depleted at this time as above and him giving him IV fluids as above, holding furosemide -He typically follows with Dr. Horta, but I do not see evidence that he is seen him in the past year. (6) Diabetes mellitus: Uncontrolled, most recent hemoglobin A1c was 9.2% in 04/2018 Recently changed to Toujeo, continues on NovoLog and was recently added on Victoza -Holding Victoza while here -Replacing Toujeo with Lantus as that is not available here-we will reduce the dose to 40 units nightly from home dose of 65 given acute kidney injury -Insulin sliding scale with NovoLog -Accu-Cheks q. before meals and at bedtime -ADA diet Check hemoglobin A1c in the morning (7) HTN (hypertension): Hypotensive on admission as above -Holding furosemide (8) Hypercholesterolemia: -Continue statin (9) Diabetic peripheral neuropathy: -We will reduce the dose of gabapentin 400 mg once daily given acute kidney injury (10) Hypothyroidism: TSH here is normal at 1.6 -Continue home dosing of levothyroxine (11) Anemia of chronic disease: Hemoglobin is only mildly low at 12.8 and stable from previous -Follow periodically given chronic kidney disease (12) Chronic lower back pain: Stable -Continue PRN oxycodone, gabapentin, Voltaren gel (13) History of DVT (deep vein thrombosis): Diagnosed in the right lower extremity in 09/2017, was treated with 6 months of Xarelto which he completed in 04/2018 -DVT prophylaxis as below (14) DVT prophylaxis: Heparin 5000 SQ every 8 hours as well as HUMBERTO hose and SCDs given high risk of DVT Disposition-admit to telemetry History of Present Illness Chief Complaint: Lightheadedness Primary Care Provider: Tran Harris DO This patient is a 62-year-old male with history of CKD stage III-IV, DM 2, HTN, mild chronic anemia, chronic diastolic CHF, OA, chronic lower back pain, hypothyroidism, diabetic peripheral neuropathy, nephrolithiasis, and a RLE DVT in 09/2017, who presented after being directed to the ER by his forestry professor today. He went for his regular appointment after waking up and feeling very lightheaded. In the nephrology office, he was found to be hypotensive reportedly at 80/56 sitting and 70/50 with standing. An ECG was done which showed atrial tachycardia with a rate of 126. He denied any chest pain or shortness of breath. He denied headache or numbness or tingling over his usual in the feet. No focal weakness. He does report that yesterday he did not drink much at all day-he does not know why-he denies nausea or vomiting, denies recent fevers/chills/sweats or any other acute issues. He denies any issues with urinary retention. He continued to take his usual furosemide 80 mg p.o. twice daily. His blood work that was just performed 2 days ago showed stable creatinine at 2.1, but labs in the ER showed a creatinine of 4.99 today. Electrolytes were otherwise normal except for mildly low sodium at 133. His WBC count was mildly elevated at 11, troponin was negative. His chest x-ray was negative. He was given IV fluids and felt much improved. His blood pressures were then actually hypertensive when I saw him. He will be admitted for acute kidney injury, hypotension, and atrial tachycardia. Allergies Allergy/AdvReac Type Severity Reaction Status Date / Time No Known Drug Allergies Allergy Unknown . Verified 07/16/18 12:27 Home Medications Home Medications Medication Instructions Recorded Confirmed Type atorvastatin 40 mg PO DAILY 07/16/18 07/16/18 History diclofenac sodium 1 % TOPICAL DIRECTED 07/16/18 07/16/18 History furosemide 80 mg PO BID 07/16/18 07/16/18 History gabapentin 400 mg PO TID 07/16/18 07/16/18 History insulin aspart U-100 [Novolog 0 unit SUBCUT DIRECTED 07/16/18 07/16/18 History Flexpen U-100 Insulin] insulin glargine U-300 conc 0 unit SUBCUT DIRECTED 07/16/18 07/16/18 History [Toujeo Max U-300 SoloStar] levothyroxine 25 mcg PO DIRECTED 07/16/18 07/16/18 History levothyroxine 50 mcg PO 3XWK 07/16/18 07/16/18 History liraglutide [Victoza 3-Joshua] 0 mg SUBCUT DIRECTED 07/16/18 07/16/18 History oxycodone 10 mg PO Q4H PRN 07/16/18 07/16/18 History Past Med/Surg History Medical History Kidney disease Chronic kidney disease, stage III (moderate) Congestive heart failure (CHF) Diabetes mellitus (Chronic) Diastolic CHF, acute (Resolved) Fluid overload (Resolved) HTN (hypertension) (Chronic) Hypercholesterolemia (Chronic) Anemia of chronic disease Chronic lower back pain Diabetic peripheral neuropathy History of DVT (deep vein thrombosis) History of nephrolithiasis Hypothyroidism No pertinent family history Surgical History No pertinent past surgical history History of arthroscopic knee surgery History of hand surgery For Dupuytren's contractures-bilaterally History of shoulder surgery Right biceps tendon repair History of surgical removal of ganglion cyst Family History Other No pertinent family history Social History Preferred Language: [place] Communication Ability: Effective Visual Impairment: No Limitations Hearing Ability: Normal Beliefs That Will Affect Care: None marital status: marital status details: Current Living Situation: Spouse Other Information That Helps Us Care for You: No Feels Safe at Home: Yes Safety Concerns: Feels Safe At This Time Smoking Status: Never smoker Do You Dip or Chew Tobacco: Yes (chews) Hx Alcohol Use: No Hx Substance Use: No Review of Systems Review of Systems: All systems reviewed & are unremarkable except as noted in HPI & below (No nausea/vomiting/diarrhea, no hematochezia, no headache, no palpitations, no chest pain or shortness of breath, no abdominal pain) Physical Exam Constitutional: WD/WN, vitals as above Eyes: PERRL, conjunctivae normal, anicteric sclerae ENMT: external ear and nose normal, oropharynx normal Neck: trachea midline, no thyromegaly Respiratory: normal respiratory effort, lungs clear to auscultation Cardiovascular: Rate/Rhythm: regular rate and regular rhythm Heart Sounds: no murmur Extremities: + edema (Trace pitting edema of the legs bilaterally) Gastrointestinal (Abdomen): normal bowel sounds, soft, nontender, no hepatosplenomegaly Musculoskeletal: Extremities: extremities normal to inspection; no cyanosis and no clubbing Skin: no rashes, warm and dry Neurologic: moves all extremities and awake; no focal motor deficits Psychiatric: A+Ox3, euthymic affect Results & Data Vital Signs (Past 12 Hours) Vital Signs Temp Pulse Resp BP Pulse Ox 07/16/18 14:05 84 18 100/63 96 07/16/18 14:02 85 14 94 07/16/18 14:00 87 21 97 07/16/18 13:50 105 H 23 95 07/16/18 13:46 85 18 96 07/16/18 13:40 83 21 92 07/16/18 13:31 81 16 96 07/16/18 13:30 83 13 92 07/16/18 13:20 90 15 92 07/16/18 13:16 101 H 13 130/73 92 07/16/18 13:10 81 24 07/16/18 13:02 86 18 93 07/16/18 13:01 85 18 120/71 92 07/16/18 13:00 83 17 91 07/16/18 12:50 84 18 91 07/16/18 12:46 86 18 102/58 L 92 07/16/18 12:40 84 17 90 07/16/18 12:32 86 14 79/44 L 92 07/16/18 12:31 85 18 77/57 L 90 07/16/18 12:30 85 16 90 05/15/19 12:20 89 24 90 07/16/18 12:10 89 20 94 07/16/18 12:01 109 H 13 108/68 91 07/16/18 12:00 90 22 92 07/16/18 11:52 94 07/16/18 11:50 101 H 15 94 07/16/18 11:40 111 H 13 94 07/16/18 11:36 112 H 23 07/16/18 11:31 99 H 13 89/49 L 97 07/16/18 11:22 36.5 C 113 H 18 93/58 L 96 Laboratory Results 07/16/18 07/16/18 07/16/18 Range/Units 20:04 16:55 16:51 WBC (4.8-10.8) K/uL RBC (4.7-6.1) M/uL Hgb (14.0-18.0) g/dL Hct (42-52) % MCV (80-100) fL MCH (25-34) pg MCHC (32-36) g/dL RDW Std Deviation (36.4-46.3) fL RDW Coeff of Milly (11.5-14.5) % Plt Count (130-400) K/uL MPV (7.4-10.4) fL Immature Gran % (Auto) % Neut % (Auto) % Lymph % (Auto) % Cowley % (Auto) % Eos % (Auto) % Baso % (Auto) % Immature Gran # (Auto) (0.00-0.02) K/uL Neut # (Auto) (1.4-6.5) K/uL Lymph # (Auto) (1.2-3.4) K/uL Cowley # (Auto) (0.11-0.59) K/uL Eos # (Auto) (0-0.5) K/uL Baso # (Auto) (0-0.2) K/uL PT (9.0-12.0) Seconds INR (0.9-1.1) Sodium (136-145) mmol/L Potassium (3.5-5.1) mmol/L Chloride (98-107) mmol/L Carbon Dioxide (21-32) mmol/L Anion Gap (3-11) BUN (7-18) mg/dl Creatinine (0.6-1.4) mg/dl Est Cr Clr Drug Dosing ml/min Est GFR ( Amer) Est GFR (Non-Af Amer) BUN/Creatinine Ratio (10-20) Glucose (70-99) mg/dl POC Glucose 200 H (70-99) Calcium (8.5-10.1) mg/dl Phosphorus (2.5-4.9) mg/dl Magnesium (1.8-2.4) mg/dl Total Bilirubin (0.2-1) mg/dl Direct Bilirubin (0-0.2) mg/dl AST (15-37) U/L ALT (12-78) U/L Alkaline Phosphatase (45-117) U/L Troponin I < 0.015 (0-0.045) ng/ml Total Protein (6.4-8.2) gm/dl Albumin (3.4-5.0) gm/dl Globulin (2.5-4.0) gm/dl Albumin/Globulin Ratio (0.9-2) Lipase (73-393) U/L TSH (0.300-4.500) uIu/ml Urine Color Yellow Urine Appearance Clear (Clear) Urine pH 5.0 (4.5-7.5) Ur Specific Sheldon 1.016 (1.000-1.030) Urine Protein Negative (Negative) Urine Glucose (UA) Negative (Negative) Urine Ketones Negative (Negative) Urine Blood Negative (Negative) Urine Nitrite Negative (Negative) Urine Bilirubin Negative (Negative) Urine Urobilinogen Negative (Negative) Ur Leukocyte Esterase Negative (Negative) 07/16/18 07/16/18 07/16/18 Range/Units 16:51 16:18 14:03 WBC (4.8-10.8) K/uL RBC (4.7-6.1) M/uL Hgb (14.0-18.0) g/dL Hct (42-52) % MCV (80-100) fL MCH (25-34) pg MCHC (32-36) g/dL RDW Std Deviation (36.4-46.3) fL RDW Coeff of Milly (11.5-14.5) % Plt Count (130-400) K/uL MPV (7.4-10.4) fL Immature Gran % (Auto) % Neut % (Auto) % Lymph % (Auto) % Cowley % (Auto) % Eos % (Auto) % Baso % (Auto) % Immature Gran # (Auto) (0.00-0.02) K/uL Neut # (Auto) (1.4-6.5) K/uL Lymph # (Auto) (1.2-3.4) K/uL Cowley # (Auto) (0.11-0.59) K/uL Eos # (Auto) (0-0.5) K/uL Baso # (Auto) (0-0.2) K/uL PT (9.0-12.0) Seconds INR (0.9-1.1) Sodium 130 L (136-145) mmol/L Potassium 4.0 (3.5-5.1) mmol/L Chloride 94 L (98-107) mmol/L Carbon Dioxide 26 (21-32) mmol/L Anion Gap 10.0 (3-11) BUN 55 H (7-18) mg/dl Creatinine 4.44 H D (0.6-1.4) mg/dl Est Cr Clr Drug Dosing 24.4 ml/min Est GFR ( Amer) 15.4 Est GFR (Non-Af Amer) 13.2 BUN/Creatinine Ratio 12.4 (10-20) Glucose 150 H (70-99) mg/dl POC Glucose 153 H 140 H (70-99) Calcium 8.9 (8.5-10.1) mg/dl Phosphorus (2.5-4.9) mg/dl Magnesium (1.8-2.4) mg/dl Total Bilirubin (0.2-1) mg/dl Direct Bilirubin (0-0.2) mg/dl AST (15-37) U/L ALT (12-78) U/L Alkaline Phosphatase (45-117) U/L Troponin I (0-0.045) ng/ml Total Protein (6.4-8.2) gm/dl Albumin (3.4-5.0) gm/dl Globulin (2.5-4.0) gm/dl Albumin/Globulin Ratio (0.9-2) Lipase (73-393) U/L TSH (0.300-4.500) uIu/ml Urine Color Urine Appearance (Clear) Urine pH (4.5-7.5) Ur Specific Sheldon (1.000-1.030) Urine Protein (Negative) Urine Glucose (UA) (Negative) Urine Ketones (Negative) Urine Blood (Negative) Urine Nitrite (Negative) Urine Bilirubin (Negative) Urine Urobilinogen (Negative) Ur Leukocyte Esterase (Negative) 07/16/18 07/16/18 07/16/18 Range/Units 11:38 11:38 11:38 WBC 11.86 H (4.8-10.8) K/uL RBC 4.47 L (4.7-6.1) M/uL Hgb 12.7 L (14.0-18.0) g/dL Hct 37.5 L (42-52) % MCV 83.9 (80-100) fL MCH 28.4 (25-34) pg MCHC 33.9 (32-36) g/dL RDW Std Deviation 47.5 H (36.4-46.3) fL RDW Coeff of Milly 15.5 H (11.5-14.5) % Plt Count 317 (130-400) K/uL MPV 9.9 (7.4-10.4) fL Immature Gran % (Auto) 0.4 % Neut % (Auto) 75.0 % Lymph % (Auto) 14.1 % Cowley % (Auto) 9.0 % Eos % (Auto) 1.2 % Baso % (Auto) 0.3 % Immature Gran # (Auto) 0.05 H (0.00-0.02) K/uL Neut # (Auto) 8.90 H (1.4-6.5) K/uL Lymph # (Auto) 1.67 (1.2-3.4) K/uL Cowley # (Auto) 1.07 H (0.11-0.59) K/uL Eos # (Auto) 0.14 (0-0.5) K/uL Baso # (Auto) 0.03 (0-0.2) K/uL PT 10.3 (9.0-12.0) Seconds INR 1.0 (0.9-1.1) Sodium 133 L (136-145) mmol/L Potassium 3.7 (3.5-5.1) mmol/L Chloride 95 L (98-107) mmol/L Carbon Dioxide 27 (21-32) mmol/L Anion Gap 11.0 (3-11) BUN 56 H D (7-18) mg/dl Creatinine 4.99 H* D (0.6-1.4) mg/dl Est Cr Clr Drug Dosing 21.7 ml/min Est GFR ( Amer) 13.3 Est GFR (Non-Af Amer) 11.5 BUN/Creatinine Ratio 11.2 (10-20) Glucose 104 H (70-99) mg/dl POC Glucose (70-99) Calcium 9.0 (8.5-10.1) mg/dl Phosphorus 3.6 (2.5-4.9) mg/dl Magnesium 2.7 H (1.8-2.4) mg/dl Total Bilirubin 0.5 (0.2-1) mg/dl Direct Bilirubin 0.2 (0-0.2) mg/dl AST 30 (15-37) U/L ALT 21 (12-78) U/L Alkaline Phosphatase 67 (45-117) U/L Troponin I < 0.015 (0-0.045) ng/ml Total Protein 7.7 (6.4-8.2) gm/dl Albumin 3.5 (3.4-5.0) gm/dl Globulin 4.2 H (2.5-4.0) gm/dl Albumin/Globulin Ratio 0.8 L (0.9-2) Lipase 138 (73-393) U/L TSH 1.600 (0.300-4.500) uIu/ml Urine Color Urine Appearance (Clear) Urine pH (4.5-7.5) Ur Specific Sheldon (1.000-1.030) Urine Protein (Negative) Urine Glucose (UA) (Negative) Urine Ketones (Negative) Urine Blood (Negative) Urine Nitrite (Negative) Urine Bilirubin (Negative) Urine Urobilinogen (Negative) Ur Leukocyte Esterase (Negative) Diagnostic Findings CT abd pelvis wo con CT DOSE: 1647.34 mGy.cm HISTORY: Pain acute on chronic renal failure TECHNIQUE: Multiaxial CT images of the abdomen and pelvis were performed without contrast. A dose lowering technique was utilized adhering to the principles of ALARA. COMPARISON STUDY: None. FINDINGS: The lung bases are clear. The unenhanced liver, spleen, gallbladder, pancreas, kidneys, and adrenal glands are within normal limits. No bowel wall thickening or obstruction. The pelvic organs are unremarkable. No suspicious lytic or blastic osseous lesions. Normal appendix IMPRESSION: No significant abnormality identified within the abdomen or pelvis. XR chest 1V portable CLINICAL HISTORY: 62 years-old Male presenting with Chest Pain. TECHNIQUE: Portable upright AP view of the chest was obtained. COMPARISON: 05/25/2016. FINDINGS: Cardiomediastinal silhouette normal. No focal opacity. No large effusion or pneumothorax. Osseous structures normal. Upper abdomen normal. IMPRESSION: 1. No acute cardiopulmonary disease. ECG Additional Comments: ECG #1-reviewed with cnp-seems to be atrial tachycardia, rate 100 ECG #2-sinus rhythm with a first-degree AV block with PACs, no ischemic changes Code Status & VTE Plan Code Status Full code VTE Prophylaxis Plan VTE Prophylaxis will be ordered: Yes
--- NOTE | 2018-07-16 15:32 | CT Scan Report ---
CT abd pelvis wo con CT DOSE: 1647.34 mGy.cm HISTORY: Pain acute on chronic renal failure TECHNIQUE: Multiaxial CT images of the abdomen and pelvis were performed without contrast. A dose lo wering technique was utilized adhering to the principles of ALARA. COMPARISON STUDY: None. FINDINGS: The lung bases are clear. The unenhanced liver, spleen, gallbladder, pancreas, kidneys, and adrenal glands are within normal limits. No bowel wall thickening or obstruction. The pelvic organs are unremarkable. No suspicious lytic or blastic osseous lesions. Normal appendix IMPRESSION: No significant abnormality identified within the abdomen or pelvis. The above report was generated using voice recognition software. It may contain grammatical, syntax or spelling errors. Electronically signed by: Jerald Rivera M.D. 07/16/2018 3:30 PM
[2018-07-16] MEDS ORDERED: ACETAMINOPHEN 325 MG TAB PO PRN (15:48)
[2018-07-16] MEDS ORDERED: GLUCOSE 40% GEL 15 GM TUBE PO PRN (15:48)
[2018-07-16] MEDS ORDERED: GLUCOSE 10 TABS/TUBE PO PRN (15:48)
[2018-07-16] MEDS ORDERED: GLUCAGON FOR INJ 1 MG VIAL SQ PRN (15:48)
[2018-07-16] MEDS ORDERED: DEXTROSE 50% 50 ML SYRINGE IV PRN (15:48)
[2018-07-16] MEDS ORDERED: CARBOHYDRATES FOR HYPOGLYCEMIA PO PRN (15:48)
--- NOTE | 2018-07-16 15:54 | Emergency Department Note ---
Entered by Keyona Pavon acting as a scribe for Bj Hinkle MD History of Present Illness General Chief complaint: Cardiac Assessment Stated complaint: abnormal EKG, referred by doctor Time Seen by Provider: 07/16/18 11:37 Source: patient Mode of arrival: ambulatory Limitations: no limitations History of Present Illness Onset (ago): day(s) (this morning) Location: chest Pain Consistency: + other (episode) Quality: + other (cardiac assessment, abnormal EKG) Associated symptoms: + other (The patient denies congestion and diarrhea. ); no chest pain, no cough, no fever/chills, no nausea/vomiting and no shortness of breath The patient is a 62 year old male with a history of kidney disease and diabetes who presents to the ED with complaints of an episode of a cardiac assessment that onset this morning. The patient states that he saw his analyst food and beverage this morning and felt dizzy at the office. He notes that the physician did an EKG and referred him to the ED. The patient states that he felt fine yesterday, with the exception of his hands feeling shaky. He notes that he was walking into [place] th morning because of his dizziness. The patient denies fever, chills, cough, congestion, nausea, vomiting, chest pain, shortness of breath, and diarrhea. The patient states that he recently had blood work done prior to his doctor visit today, which was normal. He denies smoking. Home Medications Home Medications Medication Instructions Recorded Confirmed Type atorvastatin 40 mg PO DAILY 07/16/18 07/16/18 History diclofenac sodium 1 % TOPICAL DIRECTED 07/16/18 07/16/18 History furosemide 80 mg PO BID 07/16/18 07/16/18 History gabapentin 400 mg PO TID 07/16/18 07/16/18 History insulin aspart U-100 [Novolog 0 unit SUBCUT DIRECTED 07/16/18 07/16/18 History Flexpen U-100 Insulin] insulin glargine U-300 conc 0 unit SUBCUT DIRECTED 07/16/18 07/16/18 History [Toujeo Max U-300 SoloStar] levothyroxine 25 mcg PO DIRECTED 07/16/18 07/16/18 History levothyroxine 50 mcg PO 3XWK 07/16/18 07/16/18 History liraglutide [Victoza 3-Joshua] 0 mg SUBCUT DIRECTED 07/16/18 07/16/18 History oxycodone 10 mg PO Q4H PRN 07/16/18 07/16/18 History Allergies Allergy/AdvReac Type Severity Reaction Status Date / Time No Known Drug Allergies Allergy Unknown . Verified 07/16/18 12:27 Past Med/Surg History Medical History Kidney disease Chronic kidney disease, stage III (moderate) Congestive heart failure (CHF) Diabetes mellitus (Chronic) Diastolic CHF, acute (Resolved) Fluid overload (Resolved) HTN (hypertension) (Chronic) Hypercholesterolemia (Chronic) Anemia of chronic disease Chronic lower back pain Diabetic peripheral neuropathy History of DVT (deep vein thrombosis) History of nephrolithiasis Hypothyroidism No pertinent family history Surgical History No pertinent past surgical history History of arthroscopic knee surgery History of hand surgery For Dupuytren's contractures-bilaterally History of shoulder surgery Right biceps tendon repair History of surgical removal of ganglion cyst Family History Other No pertinent family history Social History Preferred Language: Indian Communication Ability: Effective Visual Impairment: No Limitations Hearing Ability: Normal Beliefs That Will Affect Care: None marital status: marital status details: Current Living Situation: Spouse Other Information That Helps Us Care for You: No Feels Safe at Home: Yes Safety Concerns: Feels Safe At This Time Smoking Status: Never smoker Do You Dip or Chew Tobacco: Yes (chews) Hx Alcohol Use: No Hx Substance Use: No Review of Systems See HPI for pertinent positives & negatives. and A total of 10 systems reviewed and were otherwise negative Physical Exam Vital Signs Vital Signs - 24 hr 07/16/18 11:22 07/16/18 11:31 07/16/18 11:36 Temperature 36.5 C Temperature Source Oral Sepsis Recent Fever Within 48 Hours No Sepsis Action Taken by Nursing No Action Required Pulse Rate 113 H 99 H 112 H Pulse Rate from SpO2 Sensor 106 H Pulse Rhythm Regular Pulse Strength Normal Respiratory Rate 18 13 23 Respiratory Effort / Characteristics Respiratory Depth Respiratory Pattern Blood Pressure 93/58 L 89/49 L Blood Pressure Mean 69 62 Blood Pressure Position Sitting Pulse Oximetry 96 97 Oxygen Delivery Method 07/16/18 11:40 07/16/18 11:50 07/16/18 11:52 Temperature Temperature Source Sepsis Recent Fever Within 48 Hours Sepsis Action Taken by Nursing Pulse Rate 111 H 101 H Pulse Rate from SpO2 Sensor 103 H 96 H Pulse Rhythm Pulse Strength Respiratory Rate 13 15 Respiratory Effort / Characteristics Respiratory Depth Respiratory Pattern Blood Pressure Blood Pressure Mean Blood Pressure Position Pulse Oximetry 94 94 94 Oxygen Delivery Method Room Air 07/16/18 12:00 07/16/18 12:01 07/16/18 12:10 Temperature Temperature Source Sepsis Recent Fever Within 48 Hours Sepsis Action Taken by Nursing Pulse Rate 90 109 H 89 Pulse Rate from SpO2 Sensor 90 108 H 89 Pulse Rhythm Pulse Strength Respiratory Rate 22 13 20 Respiratory Effort / Characteristics Respiratory Depth Respiratory Pattern Blood Pressure 108/68 Blood Pressure Mean 81 Blood Pressure Position Pulse Oximetry 92 91 94 Oxygen Delivery Method 07/16/18 12:20 07/16/18 12:30 07/16/18 12:31 Temperature Temperature Source Sepsis Recent Fever Within 48 Hours Sepsis Action Taken by Nursing Pulse Rate 89 85 85 Pulse Rate from SpO2 Sensor 89 85 85 Pulse Rhythm Pulse Strength Respiratory Rate 24 16 18 Respiratory Effort / Characteristics Respiratory Depth Respiratory Pattern Blood Pressure 77/57 L Blood Pressure Mean 63 Blood Pressure Position Pulse Oximetry 90 90 90 Oxygen Delivery Method 07/16/18 12:32 07/16/18 12:40 07/16/18 12:46 Temperature Temperature Source Sepsis Recent Fever Within 48 Hours Sepsis Action Taken by Nursing Pulse Rate 86 84 86 Pulse Rate from SpO2 Sensor 87 84 85 Pulse Rhythm Pulse Strength Respiratory Rate 14 17 18 Respiratory Effort / Characteristics Respiratory Depth Respiratory Pattern Blood Pressure 79/44 L 102/58 L Blood Pressure Mean 55 72 Blood Pressure Position Pulse Oximetry 92 90 92 Oxygen Delivery Method 07/16/18 12:50 07/16/18 13:00 07/16/18 13:01 Temperature Temperature Source Sepsis Recent Fever Within 48 Hours Sepsis Action Taken by Nursing Pulse Rate 84 83 85 Pulse Rate from SpO2 Sensor 85 88 85 Pulse Rhythm Pulse Strength Respiratory Rate 18 17 18 Respiratory Effort / Characteristics Respiratory Depth Respiratory Pattern Blood Pressure 120/71 Blood Pressure Mean 87 Blood Pressure Position Pulse Oximetry 91 91 92 Oxygen Delivery Method 07/16/18 13:02 07/16/18 13:09 07/16/18 13:10 Temperature Temperature Source Sepsis Recent Fever Within 48 Hours Sepsis Action Taken by Nursing Pulse Rate 86 81 Pulse Rate from SpO2 Sensor 85 Pulse Rhythm Pulse Strength Respiratory Rate 18 24 Respiratory Effort / Characteristics Non-Labored Spontaneous Respiratory Depth Normal Respiratory Pattern Regular Blood Pressure Blood Pressure Mean Blood Pressure Position Pulse Oximetry 93 Oxygen Delivery Method Room Air 07/16/18 13:16 07/16/18 13:20 07/16/18 13:30 Temperature Temperature Source Sepsis Recent Fever Within 48 Hours Sepsis Action Taken by Nursing Pulse Rate 101 H 90 83 Pulse Rate from SpO2 Sensor 101 H 88 85 Pulse Rhythm Pulse Strength Respiratory Rate 13 15 13 Respiratory Effort / Characteristics Respiratory Depth Respiratory Pattern Blood Pressure 130/73 Blood Pressure Mean 92 Blood Pressure Position Pulse Oximetry 92 92 92 Oxygen Delivery Method 07/16/18 13:31 07/16/18 13:40 07/16/18 13:46 Temperature Temperature Source Sepsis Recent Fever Within 48 Hours Sepsis Action Taken by Nursing Pulse Rate 81 83 85 Pulse Rate from SpO2 Sensor 83 81 85 Pulse Rhythm Pulse Strength Respiratory Rate 16 21 18 Respiratory Effort / Characteristics Respiratory Depth Respiratory Pattern Blood Pressure Blood Pressure Mean Blood Pressure Position Pulse Oximetry 96 92 96 Oxygen Delivery Method 07/16/18 13:50 07/16/18 14:00 07/16/18 14:02 Temperature Temperature Source Sepsis Recent Fever Within 48 Hours Sepsis Action Taken by Nursing Pulse Rate 105 H 87 85 Pulse Rate from SpO2 Sensor 99 H 98 H 85 Pulse Rhythm Pulse Strength Respiratory Rate 23 21 14 Respiratory Effort / Characteristics Respiratory Depth Respiratory Pattern Blood Pressure Blood Pressure Mean 186 Blood Pressure Position Pulse Oximetry 95 97 94 Oxygen Delivery Method 07/16/18 14:05 07/16/18 14:06 07/16/18 14:10 Temperature Temperature Source Sepsis Recent Fever Within 48 Hours Sepsis Action Taken by Nursing Pulse Rate 84 80 90 Pulse Rate from SpO2 Sensor 79 83 86 Pulse Rhythm Pulse Strength Respiratory Rate 18 20 16 Respiratory Effort / Characteristics Respiratory Depth Respiratory Pattern Blood Pressure 100/63 Blood Pressure Mean 75 Blood Pressure Position Pulse Oximetry 96 96 95 Oxygen Delivery Method 07/16/18 14:27 07/16/18 14:30 07/16/18 14:31 Temperature Temperature Source Sepsis Recent Fever Within 48 Hours Sepsis Action Taken by Nursing Pulse Rate 82 87 82 Pulse Rate from SpO2 Sensor 86 87 92 H Pulse Rhythm Pulse Strength Respiratory Rate 20 15 24 Respiratory Effort / Characteristics Respiratory Depth Respiratory Pattern Blood Pressure 122/72 127/82 Blood Pressure Mean 88 97 Blood Pressure Position Pulse Oximetry 97 98 94 Oxygen Delivery Method GENERAL: Awake, alert, fatigued-appearing, in no distress HENT: Normocephalic, atraumatic. Oropharynx with dry mucous membranes and otherw ise unremarkable. EYES: Normal conjunctiva. Sclera non-icteric. NECK: Supple. No nuchal rigidity. FROM. No JVD. RESPIRATORY: CTAB CARDIAC: Regular rate, normal rhythm. Extremities warm and well perfused. Pulses equal. ABDOMEN: Soft, non-distended. No tenderness to palpation. No rebound or guarding. No masses. RECTAL: Deferred. MUSCULOSKELETAL: Chest examination reveals no tenderness. The back is symmetrical on inspection without obvious abnormality. There is no CVA tendernes s to palpation. No joint edema. LOWER EXTREMITIES: Calves are equal size bilaterally and non-tender. Scant lower extremity edema. No discoloration. NEURO: Normal sensorium. No sensory or motor deficits noted. 5/5 strength and SILT x 4 extremities. SKIN: No rash or jaundice noted. Course 1138: Past medical records reviewed. The patient was evaluated in room C10. A complete history and physical examination was performed. 1256: I reviewed the patient's case with Dr. Kris Jeffers - [facility]. She will evaluate the patient for further management. 1300: I have re-evaluated the patient and updated him on the results of his scans. Consultations Consultation #1: 1256: I reviewed the patient's case with Dr. Kris Jeffers - [facility]. She will evaluate the patient for further management. Administered Medications Heparin Sodium (Porcine) (Heparin Sodium (Porcine)) 5,000 units SQ Q8 CHRISTIE Stop: 08/15/18 21:59 Last Admin: 07/16/18 20:52 Dose: 5,000 units Documented by: [id number] Cosigned by: [id number] Sodium Chloride (Nss 1000ml) 1,000 mls @ 70 mls/hr IV .[id number] CHRISTIE Stop: 08/15/18 15:59 Last Admin: 07/16/18 16:32 Dose: 70 mls/hr Documented by: [id number] Insulin Aspart (Novolog Flexpen) 0 units SC ACHS CHRISTIE Stop: 08/15/18 16:29 Last Admin: 07/16/18 20:56 Dose: 2 units Documented by: [id number] Cosigned by: [id number] Admin: 07/16/18 17:04 Dose: 2 units Documented by: [id number] Cosigned by: [id number] Oxycodone HCl (Roxicodone Immediate Rel) 10 mg PO Q4H PRN PRN Reason: Pain Stop: 07/30/18 15:47 Last Admin: 07/16/18 20:50 Dose: 10 mg Documented by: [id number] Admin: 07/16/18 16:34 Dose: 10 mg Documented by: [id number] Senna/Docusate Sodium (Senokot S) 1 tab PO QAM CHRISTIE Stop: 08/15/18 16:44 Last Admin: 07/16/18 17:04 Dose: 1 tab Documented by: [id number] Discontinued Medications Sodium Chloride (Nss) 500 mls @ 999 mls/hr IV .Q31M CHRISTIE Stop: 07/16/18 12:15 Last Infusion: 07/16/18 12:20 Dose: 0 mls/hr Documented by: [id number] Admin: 07/16/18 11:52 Dose: 999 mls/hr Documented by: [id number] Sodium Chloride (Nss) 500 mls @ 125 mls/hr IV .Q4H STA Stop: 07/16/18 16:52 Last Infusion: 07/16/18 15:28 Dose: 0 mls/hr Documented by: [id number] Admin: 07/16/18 13:35 Dose: 125 mls/hr Documented by: [id number] Insulin Glargine (Lantus Solostar Pen) 32 units SC HS ONE; Protocol Stop: 07/16/18 21:01 Last Admin: 07/16/18 20:53 Dose: 32 units Documented by: [id number] Cosigned by: [id number] Medical Decision Making Differential Diagnosis Differential diagnoses: Metabolic, infection, hypo/hyperglycemia, electrolyte abnormalities, cardiac sources, intracerebral event, toxicologic, neurologic, as well as others were entertained. Medical Records Attestation: I reviewed the patient's medical records. Home Medications Current Medication List: was personally reviewed by me Laboratory Data Attestation: I reviewed the patient's lab results. Result diagrams: 07/16/18 11:38 07/16/18 16:51 Lab Results 07/16/18 07/16/18 07/16/18 Range/Units 11:38 11:38 11:38 WBC 11.86 H (4.8-10.8) K/uL RBC 4.47 L (4.7-6.1) M/uL Hgb 12.7 L (14.0-18.0) g/dL Hct 37.5 L (42-52) % MCV 83.9 (80-100) fL MCH 28.4 (25-34) pg MCHC 33.9 (32-36) g/dL RDW Std Deviation 47.5 H (36.4-46.3) fL RDW Coeff of Milly 15.5 H (11.5-14.5) % Plt Count 317 (130-400) K/uL MPV 9.9 (7.4-10.4) fL Immature Gran % (Auto) 0.4 % Neut % (Auto) 75.0 % Lymph % (Auto) 14.1 % [place] % (Auto) 9.0 % Eos % (Auto) 1.2 % Baso % (Auto) 0.3 % Immature Gran # (Auto) 0.05 H (0.00-0.02) K/uL Neut # (Auto) 8.90 H (1.4-6.5) K/uL Lymph # (Auto) 1.67 (1.2-3.4) K/uL [place] # (Auto) 1.07 H (0.11-0.59) K/uL Eos # (Auto) 0.14 (0-0.5) K/uL Baso # (Auto) 0.03 (0-0.2) K/uL PT 10.3 (9.0-12.0) Seconds INR 1.0 (0.9-1.1) Sodium 133 L (136-145) mmol/L Potassium 3.7 (3.5-5.1) mmol/L Chloride 95 L (98-107) mmol/L Carbon Dioxide 27 (21-32) mmol/L Anion Gap 11.0 (3-11) BUN 56 H D (7-18) mg/dl Creatinine 4.99 H* D (0.6-1.4) mg/dl Est Cr Clr Drug Dosing 21.7 ml/min Est GFR ( Amer) 13.3 Est GFR (Non-Af Amer) 11.5 BUN/Creatinine Ratio 11.2 (10-20) Glucose 104 H (70-99) mg/dl POC Glucose (70-99) Calcium 9.0 (8.5-10.1) mg/dl Phosphorus 3.6 (2.5-4.9) mg/dl Magnesium 2.7 H (1.8-2.4) mg/dl Total Bilirubin 0.5 (0.2-1) mg/dl Direct Bilirubin 0.2 (0-0.2) mg/dl AST 30 (15-37) U/L ALT 21 (12-78) U/L Alkaline Phosphatase 67 (45-117) U/L Troponin I < 0.015 (0-0.045) ng/ml Total Protein 7.7 (6.4-8.2) gm/dl Albumin 3.5 (3.4-5.0) gm/dl Globulin 4.2 H (2.5-4.0) gm/dl Albumin/Globulin Ratio 0.8 L (0.9-2) Lipase 138 (73-393) U/L TSH 1.600 (0.300-4.500) uIu/ml 07/16/18 Range/Units 14:03 WBC (4.8-10.8) K/uL RBC (4.7-6.1) M/uL Hgb (14.0-18.0) g/dL Hct (42-52) % MCV (80-100) fL MCH (25-34) pg MCHC (32-36) g/dL RDW Std Deviation (36.4-46.3) fL RDW Coeff of Milly (11.5-14.5) % Plt Count (130-400) K/uL MPV (7.4-10.4) fL Immature Gran % (Auto) % Neut % (Auto) % Lymph % (Auto) % [place] % (Auto) % Eos % (Auto) % Baso % (Auto) % Immature Gran # (Auto) (0.00-0.02) K/uL Neut # (Auto) (1.4-6.5) K/uL Lymph # (Auto) (1.2-3.4) K/uL [place] # (Auto) (0.11-0.59) K/uL Eos # (Auto) (0-0.5) K/uL Baso # (Auto) (0-0.2) K/uL PT (9.0-12.0) Seconds INR (0.9-1.1) Sodium (136-145) mmol/L Potassium (3.5-5.1) mmol/L Chloride (98-107) mmol/L Carbon Dioxide (21-32) mmol/L Anion Gap (3-11) BUN (7-18) mg/dl Creatinine (0.6-1.4) mg/dl Est Cr Clr Drug Dosing ml/min Est GFR ( Amer) Est GFR (Non-Af Amer) BUN/Creatinine Ratio (10-20) Glucose (70-99) mg/dl POC Glucose 140 H (70-99) Calcium (8.5-10.1) mg/dl Phosphorus (2.5-4.9) mg/dl Magnesium (1.8-2.4) mg/dl Total Bilirubin (0.2-1) mg/dl Direct Bilirubin (0-0.2) mg/dl AST (15-37) U/L ALT (12-78) U/L Alkaline Phosphatase (45-117) U/L Troponin I (0-0.045) ng/ml Total Protein (6.4-8.2) gm/dl Albumin (3.4-5.0) gm/dl Globulin (2.5-4.0) gm/dl Albumin/Globulin Ratio (0.9-2) Lipase (73-393) U/L TSH (0.300-4.500) uIu/ml Imaging Data Radiologist's Impression: Radiology results as stated below per my review and the radiologist's interpretation: CT abd pelvis wo con CT DOSE: 1647.34 mGy.cm HISTORY: Pain acute on chronic renal failure TECHNIQUE: Multiaxial CT images of the abdomen and pelvis were performed without contrast. A dose lowering technique was utilized adhering to the principles of ALARA. COMPARISON STUDY: None. FINDINGS: The lung bases are clear. The unenhanced liver, spleen, gallbladder, pancreas, kidneys, and adrenal glands are within normal limits. No bowel wall thickening or obstruction. The pelvic organs are unremarkable. No suspicious lytic or blastic osseous lesions. Normal appendix IMPRESSION: No significant abnormality identified within the abdomen or pelvis. The above report was generated using voice recognition software. It may contain grammatical, syntax or spelling errors. Electronically signed by: Jerald Rivera M.D. 07/16/2018 3:30 PM Dictated: 07/16/18 1527 Transcribed: 07/16/18 1527 XR chest 1V portable CLINICAL HISTORY: 62 years-old Male presenting with Chest Pain. TECHNIQUE: Portable upright AP view of the chest was obtained. COMPARISON: 05/25/2016. FINDINGS: Cardiomediastinal silhouette normal. No focal opacity. No large effusion or pneumothorax. Osseous structures normal. Upper abdomen normal. IMPRESSION: 1. No acute cardiopulmonary disease. Electronically signed by: Obinna Mckinley M.D. 07/16/2018 12:15 PM Dictated: 07/16/18 1214 Transcribed: 07/16/18 121 ECG Data Attestation: I personally reviewed and interpreted this ECG as follows: Indication: other (cardiac assessment) Rate (beats per minute): 100 Rhythm: other (Atrial ectopic rhythm ) Findings: + other (Normal axis); no acute ischemic change Additional Comments: 1318: Sinus rhythm with 1st degree AV block, no overt acute ischemia. Blood Pressure Blood Pressure Findings: Normal blood pressure MDM Narrative The patient is a pleasant 62-year-old gentleman with a past medical history of CKD who presents emergency department with generalized weakness, dizziness per hpi. Patient was seen at his PCPs office and was sent to the ED for possibility of cardiac arrhythmia. On arrival patient is fatigued appearing but no acute distress, afebrile with HR 100s and BP 80s/50s. Mentating normally. Patient appears clinically dry. EKG appears to be atrial ectopic/atrial tachycardia. Chest x-ray negative for acute process. WBC 11.8, nonspecific. H/H 12.7/37.5 within patient's baseline range. Platelets within normal limits. Chemistry without acidosis. However does demonstrate acute on chronic renal failure with a creatinine of 4.9 increased from 2.1 on 07/14. BUN is also elevated at 56. Troponin negative. CT abdomen pelvis negative for acute process. UA pending. Patient feeling improved after IV fluid hydration with improvement in blood pressure to 120s/70s. EKG also appears improved now in sinus rhythm. Case was discussed with Dr. Ponce, [facility] hospitalist, who will evaluate the patient for admission. Impression & Plan Acute on chronic renal failure Discharge Plan Visit Data *Final* Discharge Date/Time: 07/16/18 15:24 Chief Complaint: Cardiac Assessment Stated Complaint: abnormal EKG, referred by doctor ED Provider: Bj Hinkle Discharge Problem: Acute on chronic renal failure Patient Disposition: Admitted As Inpatient Discharge Instructions Interventions: ED Discharge Assessment Last Done: 07/16/18 15:24 Discharge Problem: Acute on chronic renal failure Qualifiers: Acute renal failure type: unspecified Chronic kidney disease stage: unspecified stage Qualified Code(s): N17.9 - Acute kidney failure, unspecified The scribe's documentation has been prepared under my direction and personally reviewed by me in its entirety. I confirm that the note above accurately reflects all work, treatment, procedures, and medical decision making performed by me.
[2018-07-16] MEDS: SODIUM CHLORIDE 0.9% 1000ML 1,000 ML IV SCH (16:32)
[2018-07-16] MEDS: OXYCODONE HCL IR 5 MG TAB (IMMEDIATE RELEASE) PO PRN ×2 (16:34→20:50)
[2018-07-16 16:44] LABS: Prothrombin Time 10.3 Seconds (9.0-12.0)
[2018-07-16] MEDS: INSULIN ASPART 100 UNITS/ML 3 ML PEN SC SCH ×2 (17:04→20:56)
[2018-07-16] MEDS: DOCUSATE SODIUM/SENNA 50/8.6MG TAB PO SCH (17:04)
[2018-07-16 17:06] LABS: Appearance Urine Clear (Clear); Bilirubin Urine Negative (Negative); Blood Urine Negative (Negative); Color Urine Yellow; Glucose Urine UA Negative (Negative); Ketones Urine Negative (Negative); Leukocyte Esterase Urine Negative (Negative); Nitrite Urine Negative (Negative); Protein Urine Negative (Negative); Specific Gravity Urine 1.016 (1.000-1.030); Urobilinogen Urine Negative (Negative)
[2018-07-16 17:27] LABS: BUN Creatinine Ratio 12.4 (10-20); Calcium 8.9 mg/dl (8.5-10.1); Creatinine Clr Calc Pharmacy 24.4 ml/min; Est GFR (African American) 15.4; Est GFR (Non-African American) 13.2
[2018-07-16] MEDS: HEPARIN SOD 5,000 UNIT/0.5 ML VIAL SQ SCH (20:52)
[2018-07-16] MEDS ORDERED: INSULIN GLARGINE SOLOSTAR 100 UNITS/ML 3 ML PEN SC ONE (21:00)
[2018-07-17] MEDS: OXYCODONE HCL IR 5 MG TAB (IMMEDIATE RELEASE) PO PRN ×6 (01:11→21:24)
[2018-07-17] MEDS: HEPARIN SOD 5,000 UNIT/0.5 ML VIAL SQ SCH ×3 (05:32→21:27)
[2018-07-17] MEDS: SODIUM CHLORIDE 0.9% 1000ML 1,000 ML IV SCH ×2 (05:35→19:19)
[2018-07-17] MEDS ORDERED: LEVOTHYROXINE SODIUM 25 MCG TABLET PO SCH (06:30)
[2018-07-17 07:08] LABS: Basophils # (auto) 0.02 K/uL (0-0.2); Basophils % (auto) 0.2 %; Eosinophils # (auto) 0.24 K/uL (0-0.5); Eosinophils % (auto) 2.7 %; Hematocrit (blood only) 34.1 % (42-52); Hemoglobin 11.3 g/dL (14.0-18.0); Immature Granulocytes # (auto) 0.04 K/uL (0.00-0.02); Immature Granulocytes % (auto) 0.4 %; Lymphocytes % (auto) 17.9 %; Mean Corpuscular Hgb Conc 33.1 g/dL (32-36); Mean Corpuscular Volume 83.4 fL (80-100); Mean Platelet Volume 9.3 fL (7.4-10.4); Monocytes # (auto) 0.68 K/uL (0.11-0.59); Monocytes % (auto) 7.6 %; Neutrophils # (auto) 6.35 K/uL (1.4-6.5); Neutrophils % (auto) 71.2 %; Platelet Count 255 K/uL (130-400); RDW Coefficient of Variation 15.1 % (11.5-14.5); RDW Standard Deviation 46.2 fL (36.4-46.3); Red Blood Count 4.09 M/uL (4.7-6.1); White Blood Count 8.93 K/uL (4.8-10.8)
[2018-07-17 07:12] LABS: Estimated Average Glucose 183 mg/dl
[2018-07-17 07:47] LABS: Albumin Globulin Ratio 0.8 (0.9-2); Albumin Level 2.8 gm/dl (3.4-5.0); BUN Creatinine Ratio 15.5 (10-20); Bilirubin,Total 0.4 mg/dl (0.2-1); Calcium 8.4 mg/dl (8.5-10.1); Creatinine Clr Calc Pharmacy 32.3 ml/min; Est GFR (African American) 21.7; Est GFR (Non-African American) 18.7; Globulin 3.5 gm/dl (2.5-4.0); Magnesium 2.6 mg/dl (1.8-2.4); Potassium 3.7 mmol/L (3.5-5.1)
[2018-07-17 07:49] LABS: Total Protein 6.3 gm/dl (6.4-8.2)
[2018-07-17] MEDS: INSULIN ASPART 100 UNITS/ML 3 ML PEN SC SCH ×4 (08:03→21:27)
[2018-07-17] MEDS: ATORVASTATIN 40 MG TAB PO SCH (08:06)
[2018-07-17] MEDS: DOCUSATE SODIUM/SENNA 50/8.6MG TAB PO SCH (08:07)
[2018-07-17] MEDS: GABAPENTIN 400 MG CAP PO SCH (08:07)
--- NOTE | 2018-07-17 09:42 | Consultation Report ---
DATE OF CONSULTATION: 07/17/2018 REQUESTING PHYSICIAN: Ilana Ponce MD. DIRECTOR FUNDRAISING: Eric Horta DO, [facility]. REASON FOR CONSULTATION: Possible atrial arrhythmias. Dear Ilana, Thank you for requesting cardiology consultation on Leon with regards to his possible arrhythmias associated with a significant acute kidney injury on chronic kidney disease, orthostatic symptoms, and hypotension. As you know, he usually drinks about 64 ounces of water a day. Yesterday, he only had about 20 ounces in total. He did not feel well, noting he just did not want to drink liquids yesterday. He denied any nausea or vomiting. He went to see his operations intern and while there, he was lightheaded and dizzy and orthostatic and he was tachycardic with heart rates in the 120s. There was a concern he might be having an atrial arrhythmia, and in light of his orthostatic symptoms and dehydration, he was sent to the Emergency Room. He denies any palpitations or fluttering or feeling his heart racing. He denies any lightheadedness or dizziness this morning, and he feels much better. He has been receiving IV fluids, and with gentle hydration, he is dramatically better. He denies any chest pain or chest pressure. He is able to climb a flight of stairs at home without significant dyspnea. He is limited due to chronic back discomfort and notes he can walk about a half a block before he needs to stop due to back pain. He has chronic lower extremity edema, worse on the right compared to the left, although it is difficult to assess as he does have some degree of atrophy on the left. He notes this is the best his lower extremity edema has been, of course it is in the face of significant dehydration. Sometimes he sleeps in a chair, sometimes he sleeps in bed. If he sleeps in bed, he only has 1 pillow behind his head. He notes most often the issue with sleep is ongoing back discomfort. He wakes up at least a couple of times a night. He notes he is not well rested in the morning. He does snore. He denies any presyncope or syncope. He denies any fever, chills, sweats, cough, or productive sputum. The rest of his systems are otherwise negative. PAST MEDICAL HISTORY: 1. Chronic diastolic heart failure with preserved ejection fraction (type 2 diastolic dysfunction). 2. Mild left ventricular hypertrophy. 3. Dilated right ventricle with normal RV function (07/2017). 4. Hypertension. 5. Chronic kidney disease, stage III-IV. 6. Hyperlipidemia. 7. Obesity. 8. Proteinuria. 9. Diabetes mellitus type 2 since 1996. 10. Possible obstructive sleep apnea. SOCIAL HISTORY: He denies any tobacco, although he has a history of using chewing tobacco. He denies any alcohol. He is unable to work due to severe back pain. He is . FAMILY HISTORY: Noncontributory. ALLERGIES: No known drug allergies. MEDICATIONS: Reviewed in electronic medical record. PHYSICAL EXAMINATION: GENERAL: He is awake, alert, oriented x3. He is in no acute distress. He looks his stated age. VITAL SIGNS: His heart rate is 96, his blood pressure is 126/78. His respirations are 18. His sat is 94% on room air. HEENT: 2+ carotid upstrokes, no evidence of carotid bruits. Jugular venous pressure cannot be assessed due to his neck size. Sclerae are anicteric. Hearing is normal. LUNGS: Clear to auscultation bilaterally. No rales, rhonchi or wheezing. HEART: Regular rate and rhythm. No appreciable murmurs, rubs or gallops. ABDOMEN: Firm, nontender, chronically distended. Positive bowel sounds. EXTREMITIES: [id number] pitting edema to his distal thigh, worse on the right compared to the left, although he has atrophy of his calf muscle on the left. PSYCHIATRIC: His affect appeared appropriate. DIAGNOSTIC STUDIES: Echocardiogram in 07/2017 from our office; normal LV size and function with mild left ventricular hypertrophy, EF 65% with type 2 diastolic dysfunction, dilated right ventricle with normal RV function and a normal TAPSE. [id number] pulmonary hypertension. Previous EKGs from our office; normal sinus rhythm, left axis deviation, first degree AV block at 200 milliseconds. EKGs here initially in the ER from 01/29 appears to be sinus rhythm with a first degree AV block with likely Wenckebach physiology as there appears to be ID prolongation over time and half way through the tracing, the sinus ID interval is shorter than the previous conducted ID. In addition, he has left anterior fascicular block and associated poor R-wave progression with that. His second EKG confirms sinus rhythm, again with a first-degree AV block, left anterior fascicular block, poor R-wave progression and nonspecific T-wave changes. He does have small lateral Q waves that have been present on his EKGs. Telemetry monitoring; sinus rhythm with a first-degree AV block. Sodium 130, BUN 55, creatinine 4.44 (although on admission, it was 4.99). This morning, his BUN is 52 with a creatinine of 3.34 and sodium of 134 with a potassium 3.7. His hemoglobin A1c is 8. His magnesium is 2.6. IMPRESSION: 1. Tachycardia and hypotension associated with significant dehydration. 2. Acute kidney injury on chronic kidney disease, which is improving. 3. Significant diastolic and right-sided heart failure. 4. Likely obstructive sleep apnea. 5. Concern for atrial arrhythmias with review of his EKGs and telemetry strips suggesting sinus rhythm with a first degree atrioventricular block and sinus rhythm with Wenckebach physiology. There is no evidence of an atrial tachycardia. 6. Likely obstructive sleep apnea and possibly obesity hypoventilation syndrome leading to worsening right-sided heart failure. As I discussed with Leon, from an arrhythmia standpoint, at this point there is nothing to do as far as his arrhythmias as he is asymptomatic. We do know that he is at risk for atrial fibrillation in the long-term given all of his medical comorbidities. He does need a sleep study as an outpatient. I would not be surprised if he has significant sleep apnea and possibly obesity hypoventilation syndrome. If he has it and we can treat it, we therefore can unload his right ventricle, which will improve left ventricular filling, which will improve perfusion to his kidneys, hopefully improving his heart failure symptoms without causing him to have significantly worsening kidney disease. I think his legs are too big to get compression stockings on. He probably would benefit from Liborio wraps and he is to elevate his legs during the day when he is sitting. As you know, he cannot do a lot of activity, and therefore, he has a significant amount of dependent edema in addition to potential right-sided heart failure, diastolic heart failure, and inadequate diuresis from his underlying kidney disease. At this point, he is off diuretics. He is receiving IV fluids and his creatinine continues to improve. We will continue to follow him with you. Thank you for allowing us to participate in his care.
--- NOTE | 2018-07-17 10:44 | Nephrology Consultation ---
Date of Consultation July 17, 2018 Assessment & Plan (1) BE (acute kidney injury): BE likely related to dehydration: Benign urine sediment, CT negative for hydronephrosis, patient appears clinically volume contracted. Creatinine is trending down w/ IV hydration. -- Hold diuretics (home regimen had been Furosemide 80 mg po BID) -- Continue gentle hydration -- Monitor serial PRP (2) Chronic kidney disease, stage III (moderate): -- Baseline creatinine has been 2.1 - 2.4 due to diabetic nephropathy and hypertensive nephrosclerosis. (3) Hypotension: -- BP improved. Continue gentle hydration (4) Chronic diastolic CHF (congestive heart failure): -- Currently compensated. Patient has only trace LE swelling History of Present Illness Reason for Consultation: BE / CKD Attending Physician: Alexander Tate DO History of Present Illness Mr. Green is a 62 year old white male who is seen at the request of Dr. Ponce for evaluation of BE / CKD. Medical records in the EMR were reviewed today and are summarized as follows: Mr. Green has stage III CKD w/ baseline creatinine 2.1 - 2.4 related to diabetic nephropathy and hypertensive nephrosclerosis. His Lead Web Developer is Dr. Michoacano Villegas. His medical history is also significant for AODM (no retinopathy), HTN, h/o RLE DVT on Xarelto therapy, hypothyroidism, obesity, probable ALFONZO, hypercholesterolemia and chronic diastolic CHF (echo: LVEF 65% w/ mild - mod pulm HTN). Mr. Green presented for Nephrology evaluation yesterday. He complained of orthostatic symptoms and near syncope. SBP was 70 mm HG. ECG revealed SVT w/ HR 126 bpm. He was admitted to [facility] telemetry unit for ongoing medical management. This morning Mr. Green states that he is subjectively improved. He denies fever, angina, palpitations, dyspnea or change in bowel function. His diuretic has been held and he is tolerating IV hydration without dyspnea. Urine sediment is acellular. CXR was negative for infiltrate or effusion. Noncontrast abdominal CT was negative for hydronephrosis. BP has improved to ~ 120 mm HG systolic following IV hydration. ECG this am shows NSR w/ 1st degree AVB. Creatinine has improved from 5.0 on admission to 3.3. Allergies Allergy/AdvReac Type Severity Reaction Status Date / Time No Known Drug Allergies Allergy Unknown . Verified 07/16/18 12:27 Home Medications Home Medications Medication Instructions Recorded Confirmed Type atorvastatin 40 mg PO DAILY 07/16/18 07/16/18 History diclofenac sodium 1 % TOPICAL DIRECTED 07/16/18 07/16/18 History furosemide 80 mg PO BID 07/16/18 07/16/18 History gabapentin 400 mg PO TID 07/16/18 07/16/18 History insulin aspart U-100 [Novolog 0 unit SUBCUT DIRECTED 07/16/18 07/16/18 History Flexpen U-100 Insulin] insulin glargine U-300 conc 0 unit SUBCUT DIRECTED 07/16/18 07/16/18 History [Toujeo Max U-300 SoloStar] levothyroxine 25 mcg PO DIRECTED 07/16/18 07/16/18 History levothyroxine 50 mcg PO 3XWK 07/16/18 07/16/18 History liraglutide [Victoza 3-Joshua] 0 mg SUBCUT DIRECTED 07/16/18 07/16/18 History oxycodone 10 mg PO Q4H PRN 07/16/18 07/16/18 History Patient History Medical History Kidney disease Chronic kidney disease, stage III (moderate) Congestive heart failure (CHF) Diabetes mellitus (Chronic) Diastolic CHF, acute (Resolved) Fluid overload (Resolved) HTN (hypertension) (Chronic) Hypercholesterolemia (Chronic) Anemia of chronic disease Chronic lower back pain Diabetic peripheral neuropathy History of DVT (deep vein thrombosis) History of nephrolithiasis Hypothyroidism No pertinent family history Surgical History No pertinent past surgical history History of arthroscopic knee surgery History of hand surgery For Dupuytren's contractures-bilaterally History of shoulder surgery Right biceps tendon repair History of surgical removal of ganglion cyst Family History Other No pertinent family history Social History Preferred Language: Kazakh Communication Ability: Effective Visual Impairment: No Limitations Hearing Ability: Normal Beliefs That Will Affect Care: None marital status: marital status details: Current Living Situation: Spouse Other Information That Helps Us Care for You: No Feels Safe at Home: Yes Safety Concerns: Feels Safe At This Time Smoking Status: Never smoker Do You Dip or Chew Tobacco: Yes (chews) Hx Alcohol Use: No Hx Substance Use: No Review of Systems Respiratory: no dyspnea Cardiovascular: no chest pain and no palpitations Gastrointestinal: no abdominal pain, no vomiting and no diarrhea/loose stools Physical Exam Constitutional: + obese Eyes: PERRL, conjunctivae normal, anicteric sclerae ENMT: dry mucous membranes Neck: trachea midline, no thyromegaly Respiratory: normal respiratory effort, lungs clear to auscultation Cardiovascular: Rate/Rhythm: regular rate and regular rhythm Extremities: + edema (trace pretibial edema) Gastrointestinal (Abdomen): normal bowel sounds, soft, nontender, no hepatosplenomegaly Results & Data Vital Signs (Past 12 Hours) Vital Signs Temp Pulse Pulse Resp BP Pulse Ox 07/17/18 08:00 82 07/17/18 07:18 36.7 C 96 H 18 126/78 94 07/17/18 05:05 36.7 C 81 19 103/62 96 07/16/18 23:40 36.7 C 89 19 108/65 97 07/16/18 23:10 85 Laboratory Results Laboratory Tests 07/17/18 07/17/18 06:51 06:51 WBC 8.93 Hgb 11.3 L Hct 34.1 L Plt Count 255 Sodium 134 L Potassium 3.7 Chloride 97 L Carbon Dioxide 32 BUN 52 H Creatinine 3.34 H D Laboratory Tests 07/14/18 07/16/18 12:47 16:55 Urine Color Yellow Urine Appearance Clear Urine pH 5.0 Ur Specific [place] 1.016 Urine Protein Negative Urine Glucose (UA) Negative Urine Ketones Negative Urine Blood Negative Urine Nitrite Negative Urine Bilirubin Negative Urine Urobilinogen Negative Ur Leukocyte Esterase Negative Ur Random Creatinine 55.3 U Random Total Protein 9.8 Protein/Creatinin Ratio 0.2 Diagnostic Findings CXR 07/16: Cardiomediastinal silhouette normal. No focal opacity. No large effusion or pneumothorax. Osseous structures normal. Upper abdomen normal. Noncontrast abdominal CT: The lung bases are clear. The unenhanced liver, spleen, gallbladder, pancreas, kidneys, and adrenal glands are within normal limits. No bowel wall thickening or obstruction. The pelvic organs are unremarkable. No suspicious lytic or blastic osseous lesions. Normal appendix
[2018-07-17 15:25] LABS: BUN Creatinine Ratio 16.6 (10-20); Calcium 8.3 mg/dl (8.5-10.1); Creatinine Clr Calc Pharmacy 38.4 ml/min; Est GFR (African American) 26.7
--- NOTE | 2018-07-17 17:58 | Family Medicine Progress Note ---
Date of Service July 17, 2018 Assessment & Plan (1) Hypotension: 62-yo M PMH CKD stage III-IV, DM 2, HTN, mild chronic anemia, chronic diastolic CHF, OA, chronic lower back pain, hypothyroidism, diabetic peripheral neuropathy, nephrolithiasis, and a RLE DVT in 09/2017, admitted Jul 16 2018 for hypotension and BE. Hypotension -likely secondary to taking diuretics in the setting of poor p.o. intake and chronic kidney disease. -Now improved with IV fluid hydration -Gentle IV fluids at 70 mL's per hour of normal saline -BP holding well -Holding furosemide. Consider decreasing daily dose of lasix as patient has not had adjusted "in a while" and has not had symptoms of overload for over a year. BE (acute kidney injury): -Baseline creatinine around 2.1, up to 4.99 on admission with elevated BUN (prerenal, dehydration, diuretics) -Continue to fluid hydrate with normal saline at 70 mL's per hour -Consult nephrology, appreciate recs -Follow BMP, trending down nicely -Holding furosemide -Will renally dose gabapentin at decreased dose of 400 mg once daily -will also reduce his insulin dosing given the acute kidney injury Arrhythmia -ECG shows tachycardia which is likely sinus but the P wave is buried in the T wave due to a significantly prolonged [place] interval-the rate was 126. -Consult cardiology, appreciate recs: second degree block with PVCs? Recommend sleep study for R sided heart issues.Giving IV fluids for hypotension as above Chronic kidney disease, stage III (moderate): Baseline creatinine around 2.1, chronic kidney disease stage III-IV and is secondary to diabetic nephropathy and hypertensive nephrosclerosis -Follows with nephrology -Consulting nephrology as above -Renally dose all medications -Avoid nephrotoxins -Follow BMP Congestive heart failure (CHF): With chronic diastolic CHF-maintained typically on Lasix He is volume depleted at this time as above and him giving him IV fluids as above, holding furosemide -Discuss decreasing lasix as aobve Diabetes mellitus: Uncontrolled, most recent hemoglobin A1c was 9.2% in 04/2018 Recently changed to Toujeo, continues on NovoLog and was recently added on Victoza -Holding Victoza while here -Replacing Toujeo with Lantus as that is not available here-we will reduce the dose to 40 units nightly from home dose of 65 given acute kidney injury -ISS/Bsg achs -A1c 8.0 compared to 9.2 in 04/2018 HTN (hypertension): Hypotensive on admission as above -Holding furosemide Hypercholesterolemia: -Continue statin Diabetic peripheral neuropathy: -We will reduce the dose of gabapentin 400 mg once daily given acute kidney injury Hypothyroidism: TSH here is normal at 1.6 -Continue home dosing of levothyroxine Anemia of chronic disease: Hemoglobin is only mildly low at 12.8 and stable from previous -Follow periodically given chronic kidney disease Chronic lower back pain: Stable -Continue PRN oxycodone, gabapentin, Voltaren gel History of DVT (deep vein thrombosis): Diagnosed in the right lower extremity in 09/2017, was treated with 6 months of Xarelto which he completed in 04/2018 -DVT prophylaxis as below DVT prophylaxis: Heparin 5000 SQ every 8 hours as well as HUMBERTO hose and SCDs given high risk of DVT Disposition-downgrade to [employer] code: full (2) BE (acute kidney injury): (3) Arrhythmia: (4) Chronic kidney disease, stage III (moderate): (5) Congestive heart failure (CHF): (6) Diabetes mellitus: (7) Acute on chronic renal failure: Supervising Physician Co-Signing Physician Notes I personally examined the patient and verified all [place] points of history and exam, discussed case, and agree with decision making with Dr Levy. Feeling considerably better. Back pain persists but this is a chronic thing. Vitals noted, in general he is awake and alert pleasant no distress. HEENT normocephalic atraumatic mucous members moist. Breathing unlabored no accessory muscle use good effort. Skin shows no rashes no pallor or icterus. Hypotension/acute renal failure superimposed on chronic kidney disease stage IIIappears to been related to his Lasix dose and poor oral intake. Improving with IV fluids. Follow closely. Chronic diastolic CHFhe does not appear to be very brittle, it looks like his last admission for this was in 2017, he notes that he is not constantly having to have medications titrated to keep him out of pulmonary edema. I suspect that we can probably lower his overall Lasix dose over time. Subjective Patient reports his symptoms are greatly improved from yesterday. Physical Exam Constitutional: WD/WN, vitals as above + obese Eyes: PERRL, conjunctivae normal, anicteric sclerae ENMT: external ear and nose normal, oropharynx normal Neck: trachea midline, no thyromegaly Respiratory: normal respiratory effort, lungs clear to auscultation Cardiovascular: RRR, no murmur, no edema Rate/Rhythm: regular rate and regular rhythm Heart Sounds: no murmur Extremities: + edema (trace pretibial edema) Gastrointestinal (Abdomen): normal bowel sounds, soft, nontender, no hepatosplenomegaly Musculoskeletal: Extremities: extremities normal to inspection; no cyanosis and no clubbing Skin: no rashes, warm and dry Neurologic: moves all extremities and awake; no focal motor deficits Psychiatric: A+Ox3, euthymic affect Results & Data Vital Signs (Past 12 Hours) Vital Signs Temp Pulse Pulse Pulse Resp BP Pulse Ox 07/17/18 15:07 36.7 C 78 18 128/78 97 07/17/18 11:22 36.7 C 78 18 120/73 95 07/17/18 08:00 82 07/17/18 07:18 36.7 C 96 H 18 126/78 94 Resident Activity Tracking Resident Involvement: Resident Care Provided Care Provided: Adult Hospital Medicine (1) Acute on chronic renal failure Acute renal failure type: unspecified Chronic kidney disease stage: unspecified stage Qualified Code(s): N17.9 - Acute kidney failure, unspecified; N18.9 - Chronic kidney disease, unspecified
[2018-07-17] MEDS ORDERED: INSULIN GLARGINE SOLOSTAR 100 UNITS/ML 3 ML PEN SC SCH ×2 (21:00)
[2018-07-18] MEDS: OXYCODONE HCL IR 5 MG TAB (IMMEDIATE RELEASE) PO PRN ×4 (01:34→13:34)
[2018-07-18] MEDS: HEPARIN SOD 5,000 UNIT/0.5 ML VIAL SQ SCH ×2 (05:32→13:28)
[2018-07-18] MEDS ORDERED: LEVOTHYROXINE SODIUM 50 MCG TABLET PO SCH (06:30)
[2018-07-18 07:28] LABS: Hematocrit (blood only) 29.2 % (42-52); Hemoglobin 10.1 g/dL (14.0-18.0); Mean Corpuscular Hgb Conc 34.6 g/dL (32-36); Mean Corpuscular Volume 82.5 fL (80-100); Mean Platelet Volume 9.6 fL (7.4-10.4); Platelet Count 228 K/uL (130-400); RDW Coefficient of Variation 14.8 % (11.5-14.5); RDW Standard Deviation 44.6 fL (36.4-46.3); Red Blood Count 3.54 M/uL (4.7-6.1); White Blood Count 6.74 K/uL (4.8-10.8)
[2018-07-18 08:06] LABS: BUN Creatinine Ratio 17.9 (10-20); Calcium 8.4 mg/dl (8.5-10.1); Creatinine Clr Calc Pharmacy 48.9 ml/min; Est GFR (African American) 35.7; Est GFR (Non-African American) 30.8; Potassium 3.8 mmol/L (3.5-5.1)
[2018-07-18] MEDS: INSULIN ASPART 100 UNITS/ML 3 ML PEN SC SCH ×2 (09:22→13:27)
[2018-07-18] MEDS: ATORVASTATIN 40 MG TAB PO SCH (09:23)
[2018-07-18] MEDS: GABAPENTIN 400 MG CAP PO SCH (09:23)
[2018-07-18] MEDS: DOCUSATE SODIUM/SENNA 50/8.6MG TAB PO SCH (09:24)
--- NOTE | 2018-07-18 11:20 | Nephrology Progress Note ---
Date of Service July 18, 2018 Assessment & Plan (1) BE (acute kidney injury): BE likely related to dehydration: Benign urine sediment, CT negative for hydronephrosis, patient appears clinically volume contracted. Creatinine is trending down w/ IV hydration. -- Heplock IV. Encourage oral hydration -- Continue to hold Furosemide. Discussed weight based diuretic dosing w/ patient today. His weight is 126kg (227 lbs). If his weight increases by 3 lbs or more, or if he develops progressive LE swelling, he is to start Furosemide 40 mg po BID until he returns to his "dry wt" of 126 kg / 227 lbs. Mr. Green does have a scale at home and indicated that he will weigh himself daily -- OK to discharge to home today from a Nephrology perspective. I have placed order in [facility] EMR to have my hospital chief executive officer staff schedule a follow up appointment w/ Dr. Villegas in 10 - 14 days. Orders for nonfasting blood work to be completed 2 days prior to office visit has also been placed in the EMR (2) Chronic kidney disease, stage III (moderate): -- Baseline creatinine has been 2.1 - 2.4 due to diabetic nephropathy and hypertensive nephrosclerosis. (3) Chronic diastolic CHF (congestive heart failure): -- Currently compensated. Patient has only trace LE swelling Subjective Mr. Green was seen & examined in his hospital room this morning. He currently denies dyspnea, angina or palpitations. He has tolerated IV hydration without side effect. Mr. Green reports that he has been ambulating in his room without orthostatic symptoms or near syncope Review of Systems Respiratory: no dyspnea Cardiovascular: no chest pain Gastrointestinal: no abdominal pain, no vomiting and no diarrhea/loose stools Physical Exam Constitutional: + obese Eyes: PERRL, conjunctivae normal, anicteric sclerae Neck: trachea midline, no thyromegaly Respiratory: normal respiratory effort, lungs clear to auscultation Cardiovascular: Rate/Rhythm: regular rate and regular rhythm Extremities: + edema (trace pretibial edema) Gastrointestinal (Abdomen): normal bowel sounds, soft, nontender, no hepatosplenomegaly Results & Data Vital Signs (Past 12 Hours) Vital Signs Temp Pulse Resp BP Pulse Ox 07/18/18 07:20 36.6 C 74 20 114/70 91 07/17/18 23:42 36.8 C 84 20 103/64 92 Laboratory Results Laboratory Tests 07/18/18 07/18/18 06:58 06:58 WBC 6.74 Hgb 10.1 L Hct 29.2 L Plt Count 228 Sodium 138 Potassium 3.8 Chloride 105 Carbon Dioxide 27 BUN 40 H Creatinine 2.21 H D Glucose 100 H Calcium 8.4 L Diagnostic Findings ECG 07/18/18: NSR w/ 1 degree AVB
--- NOTE | 2018-07-18 13:44 | Discharge Summary ---
Date of Service July 18, 2018 Admission HPI Per Admitting Provider This patient is a 62-year-old male with history of CKD stage III-IV, DM 2, HTN, mild chronic anemia, chronic diastolic CHF, OA, chronic lower back pain, hypothyroidism, diabetic peripheral neuropathy, nephrolithiasis, and a RLE DVT in 09/2017, who presented after being directed to the ER by his nuclear powerplant mechanic today. He went for his regular appointment after waking up and feeling very lightheaded. In the nephrology office, he was found to be hypotensive reportedly at 80/56 sitting and 70/50 with standing. An ECG was done which showed atrial tachycardia with a rate of 126. He denied any chest pain or shortness of breath. He denied headache or numbness or tingling over his usual in the feet. No focal weakness. He does report that yesterday he did not drink much at all day-he does not know why-he denies nausea or vomiting, denies recent fevers/chills/sweats or any other acute issues. He denies any issues with urinary retention. He continued to take his usual furosemide 80 mg p.o. twice daily. His blood work that was just performed 2 days ago showed stable creatinine at 2.1, but labs in the ER showed a creatinine of 4.99 today. Electrolytes were otherwise normal except for mildly low sodium at 133. His WBC count was mildly elevated at 11, troponin was negative. His chest x-ray was negative. He was given IV fluids and felt much improved. His blood pressures were then actually hypertensive when I saw him. He will be admitted for acute kidney injury, hypotension, and atrial tachycardia. Principal Diagnosis hypotension Discharge Exam Constitutional: WD/WN, vitals as above + obese Eyes: PERRL, conjunctivae normal, anicteric sclerae ENMT: external ear and nose normal, oropharynx normal Neck: trachea midline, no thyromegaly Respiratory: normal respiratory effort, lungs clear to auscultation Cardiovascular: RRR, no murmur, no edema Rate/Rhythm: regular rate and regular rhythm Heart Sounds: no murmur Extremities: + edema (1-2+ pretibial edema) Gastrointestinal: normal bowel sounds, soft, nontender, no hepatosplenomegaly Musculoskeletal: Extremities: extremities normal to inspection; no cyanosis and no clubbing Skin: no rashes, warm and dry Neurologic: moves all extremities and awake; no focal motor deficits Psychiatric: A+Ox3, euthymic affect Discharge Data Allergies Allergy/AdvReac Type Severity Reaction Status Date / Time No Known Drug Allergies Allergy Unknown . Verified 07/16/18 12:27 Consultations 07/16/18 12:51 ED Decision to Admit Stat 07/16/18 15:48 Consult Cardiology Routine Consult Nephrology Routine Ordered Studies 07/16/18 12:53 CT abd pelvis wo con Stat Hospital Course (1) Hypotension: 62-yo M PMH CKD stage III-IV, DM 2, HTN, mild chronic anemia, chronic diastolic CHF, OA, chronic lower back pain, hypothyroidism, diabetic peripheral neuropathy, nephrolithiasis, and a RLE DVT in 09/2017, admitted Jul 16 2018 for hypotension and BE. Hypotension/dehydration Likely secondary to taking diuretics in the setting of poor p.o. intake and chronic kidney disease. Improved with IV fluid hydration - Discharged on altered furosemide regimen: Measure weight daily - if weight increases by 3lbs or more, or if worsening lower extremity swelling, start taking furosemide 40mg twice daily until returns to "dry weight" 126kg (227lbs) - Recommend low salt diet, keeping legs elevated when sitting or sleeping, and wrapping legs with ONESIMO wrap - Recommend sleep study - decrease pressure/strain on the heart and improve swelling and possibly lead to mild improvement in kidney function as well. Acute kidney injury Baseline creatinine around 2.1, up to 4.99 on admission with elevated BUN (prerenal, dehydration, diuretics), returned to baseline with IVF. - Discharged on modification of meds (ie.renally dosed) Arrhythmia ECG shows tachycardia which is likely sinus but the P wave is buried in the T wave due to a significantly prolonged CT interval-the rate was 126. ?second degree block with PVCs? - Cardiology recommends sleep study for R sided heart issues. Chronic kidney disease, stage III (moderate): Baseline creatinine around 2.1, chronic kidney disease stage III-IV and is secondary to diabetic nephropathy and hypertensive nephrosclerosis -Renally dose all medications and avoid nephrotoxins Congestive heart failure (CHF): With chronic diastolic CHF-maintained typically on furosemide. -Change in furosemide as above Diabetes mellitus: Uncontrolled, most recent hemoglobin A1c 8.0 (compared to 9.2 in 04/2018). Recently changed to Toujeo, continues on NovoLog and was recently added on Victoza -Resume home regimen on discharge HTN (hypertension): Hypotensive on admission as above -Holding furosemide Hypercholesterolemia: -Continue statin Diabetic peripheral neuropathy: -Reduced dose of gabapentin 400mg once daily given acute kidney injury Hypothyroidism: TSH here is normal at 1.6 -Continue home dosing of levothyroxine Anemia of chronic disease: Hemoglobin is only mildly low at 12.8 and stable from previous -Follow periodically given chronic kidney disease Chronic lower back pain: Stable - Continue PRN oxycodone, gabapentin, Voltaren gel - Recommend out patient follow up with provider with osteopathic skills CODE: full (2) BE (acute kidney injury): (3) Arrhythmia: (4) Chronic kidney disease, stage III (moderate): (5) Congestive heart failure (CHF): (6) Diabetes mellitus: (7) Acute on chronic renal failure: Total Time Total Time Spent Total Time Spent (In Minutes): >30 Discharge Plan Discharge Items Patient Disposition: Home - Self-Care Reason For Visit: HYPOTENSION,ATRIAL TACHYCARDIA,BE Discharge Diagnosis: Dehydration Condition: Good Discharge Goals: Diagnostic testing, Improve disease control and Therapeutic intervention Activity: Resume your previous activity Non-emergency contact: Primary Care Provider, Piano Accompanist and Toolsmith Call non-emergency contact if: you have any medication questions and your symptoms worsen Follow-up/Referrals: Tran Harris DO [Primary Care Provider] - 07/24/18 7:45 am (Please, follow up at Dr. Harris's office with her associate, Carin ROGEL NP, on July 24 at 7:45 am. *If you need to change this appointment, call their office at [phone].) Michoacano Villegas DO [Physician Manager Of Maintenance] - 08/01/18 2:40 pm (Please, follow up at [facility] Nephrology Office with Dr. Villegas on SaturdayAugust 01 at 2:40 pm. If you need to change this appointment, call the office at [phone].) Trino Retana DO [Physician] - 07/21/18 3:00 pm (Please, follow up with Dr. Trino Retana for osteopathic manipulative therapy, on SaturdayJuly 21 at 3:00 pm. This is to help with your back pain. *The office is located at [facility] in [place]. If you need to change or cancel this appointment, call the office at [phone].) Eric Horta, DO [Physician] - (Please, follow up at Dr. Horta's office. *A nurse from this office is to call you and arrange an appointment. If you have any questions, call the office at [phone].) Diet: Carb Consistent or DM2 and Heart Healthy Addtl Provider Instructions: Lightheaded with low blood pressure and increased creatinine Symptoms and labs improved with IV fluids On discharge: - Hold Furosemide. - Dry weight is 126kg (227lbs) - Measure weight daily - if weight increases by 3lbs or more, or if worsening lower extremity swelling, start taking furosemide 40mg twice daily until returns to "dry weight" - To decrease fluid retention and leg swelling, recommend low salt diet, keeping legs elevated when sitting or sleeping, and wrapping legs with ONESIMO wrap - Recommend sleep study - this can improve sleep and energy, decrease pressure/strain on the heart and improve swelling and possibly lead to mild improvement in kidney function as well. - Consider back pain management as discussed (more regular use of voltaren gel, moist heat compress, seeing a provider with osteopathic skills etc) - Resume all other home medications as before. - Follow up with your PCP, cardiology, and nephrology, and have your kidney function rechecked in 1 week Prescriptions: Continued atorvastatin 40 mg tablet 40 mg PO DAILY RF: 0 gabapentin 400 mg capsule 400 mg PO TID RF: 0 levothyroxine 25 mcg tablet 50 mcg PO 3XWK RF: 0 levothyroxine 25 mcg tablet 25 mcg PO DIRECTED RF: 0 Novolog Flexpen U-100 Insulin 100 unit/mL (3 mL) insulin pen subcut DIRECTED RF: 0 diclofenac sodium 1 % gel 1 % topical DIRECTED RF: 0 oxycodone 10 mg tablet 10 mg PO Q4H PRN (Reason: Pain) RF: 0 Victoza 3-Joshua 0.6 mg/0.1 mL (18 mg/3 mL) pen injector subcut DIRECTED RF: 0 Toujeo Max U-300 SoloStar 300 unit/mL (3 mL) Insulin Pen SUBCUT DIRECTED RF: 0 Changed furosemide 40 mg tablet 40 mg PO BID Qty: 0 RF: 0 Stand-Alone Forms: [facility] Discharge Orders: Discharge Order (Routine); Ordered 07/18/18 Ordered By: Brandi Wilder Admission Data Admit Date/Time: 07/16/18 14:34 Attending Provider: Alexander Tate Admit Provider: Ilana Ponce Primary Care Provider: Tran Harris Other Providers: Ilana Ponce ; Eric Horta ; Michoacano Villegas Service: Medical Other Interventions: Discharge Summary Assessment (RN) Last Done: 07/18/18 14:11 DC Date/Time DO NOT enter until pt leaves facility: 07/18/18 15:15 Supervising Physician Co-Signing Physician Notes I personally examined the patient and verified all medina points of history and exam, discussed case, and agree with decision making with Dr Wilder. Feeling better as far as weakness. Wants to go home. Chronic back pain discussed at length. Most of the pain is in his back, occasional radiation down the leg. Vitals noted, in general he is awake and alert pleasant no distress. HEENT normocephalic atraumatic mucous members moist. Breathing unlabored no accessory muscle use good effort. Skin shows no rashes no pallor or icterus. Hypotension/weakness/acute kidney injury superimposed on stage III chronic kidney diseaseappears to been related to Lasix with poor oral intake. This is now improved. Stable for home. Close outpatient follow-up. Chronic diastolic CHFhe does not appear to be particularly brittle with this, his last admission was in 2017, and he notes that he is not struggling with symptoms of pulmonary edema or needing Lasix adjustments as an outpatient often at all. My suspicion is that he will be able to be on less overall Lasix, we will discharge him on a lower dose with close outpatient follow-up, he has been instructed in detail on what to watch for as far as "wet" and we would ask that you follow-up basic metabolic panel checked to rule out recurrence of "dry" more than likely the Lasix can continue to be weaned even further. We also discussed sodium restriction to provide much more margin of error on weaning the Lasix down. Chronic back painthis appears to be most likely a combination of factors, with pain being bone/disc related, tight muscle related, and likely a degree of peripheral and central nervous system facilitation. In my experience with back slight his, often as much as 40% is related to the tight muscles, even if this is being driven by the poor underlying anatomy, managing it off and allows for better relief. We discussed using his Voltaren gel 3 times daily to 4 times daily scheduled instead of as needed, and using his TENS unit about 15 minutes twice daily. We also discussed giving a therapeutic trial to OMT, and asked for referral to Dr. Trino Retana. He was very appreciative of insight and advice on hopefully trying to improve some of his back pain. (Most likely the pain that will be able to be improved by above the pain that he actually feels in his back, the current plans with injections etc. would likely be needed for ongoing relief of the nerve impingement related pain that goes down his leg) Resident Activity Tracking Resident Involvement: Resident Care Provided Care Provided: Adult [facility]
== END 2018-07-18 15:15 | disposition home or self-care (01) | DRG 683 ==
LOC: ED 11:17 → SUATTDRO 14:34 → 2S 14:34 → 4W 07-17 18:45

== ENCOUNTER 2019-03-12 10:57 | Inpatient (IN) ==
--- NOTE | 2019-03-12 15:00 | History & Physical Report ---
Date of Service March 12, 2019 Assessment & Plan (1) Acute exacerbation of CHF (congestive heart failure): Admit to PCU on telemetry Vital signs every 4 hours Strict in and out Daily weight Free p.o. water restriction to 1200 mils Low-sodium diet Bumex 2 mg IV twice daily Monitor electrolytes daily and replenish TTE pending DVT prophylaxis Heparin 5000 units twice daily Full code Present on Admission?: Yes (2) Mild sleep apnea: Will start CPAP at night per cardiology recommendations. Present on Admission?: Yes (3) Anemia of chronic disease: Due to chronic kidney disease. H&H 10.6/33.0 stable, continue monitoring Present on Admission?: Yes (4) Hypothyroidism: TSH 2.12, stable, continue home dose of levothyroxine 25 MCG's as directed. Present on Admission?: Yes (5) Diabetes mellitus with complication, with long-term current use of insulin: Would reduce home basal insulin and short acting to two thirds while patient in the hospital to avoid hypoglycemia. Glycemic control per pharmacy. Accu-Cheks before meals and at bedtime. Sliding scale insulin. Present on Admission?: Yes (6) Diabetic nephropathy: As the above. A1c pending. Present on Admission?: Yes (7) Diabetic neuropathy: Continue methocarbamol 500 mg p.o. 3 times daily as needed, continue gabapentin 400 mg p.o. 3 times daily. Continue diclofenac sodium 1% gel as directed. Present on Admission?: Yes (8) Diabetic retinopathy, nonproliferative: A1c pending. Continue monitoring. Present on Admission?: Yes (9) Vitamin D deficiency: Vitamin D pending. Continue vitamin D3 2000 units p.o. daily Present on Admission?: Yes (10) Hypercholesterolemia: Fasting lipid panel pending, continue atorvastatin 40 mg p.o. daily. Present on Admission?: Yes (11) HTN (hypertension): Stable, continue Bumex 2 g IV twice daily, carvedilol 25 mg p.o. twice daily, losartan 25 mg p.o. daily. Present on Admission?: Yes (12) Chronic kidney disease, stage III (moderate): Will consult nephrology Dr. Villegas who is familiar with patient. Patient creatinine initially improved after July 2018 but then start worsening approximately since September 2018. Creatinine today is 1.9 and GFR of 14.1. Avoid nephrotoxic agents. Since patient is on Bumex monitor kidney function closely. Disposition Home with . Present on Admission?: Yes History of Present Illness Chief Complaint: Shortness of breath Primary Care Provider: Tran Harris DO Patient is a 63 years old male with past medical history of hypertension, hypercholesterolemia,CKD stage III, osteoarthritis, vitamin D deficiency, diabetes mellitus type 2 with diabetic neuropathy and nephropathy, hypothyroidism who was sent by his client hr manager Dr. Horta to be directly admitted to the PCU on telemetry for volume overload and recent gain of 20 pounds associated with acute exacerbation of congestive heart failure. Patient has chronic diastolic heart failure. Patient was admitted to [facility] in August 2018 with hypotension and acute renal failure with a creatinine greater than 4. His diuretics at that time were held. Patient continued to follow-up with cardiac rehabilitation. Patient was started on Nutri system and again a 10 pounds. He then took furosemide for 2 to 3 days and lost 10 pounds of water weight. He still has some chronic mild lower extremity edema. Patient denies any PND, orthopnea although when his weight is up he was having symptoms of orthopnea. He did not denies any chest pain, chest pressure or chest heaviness. Patient denies palpitations or fluttering or feeling his heart racing. Patient denies a cough, fever, chills, headache, sweats, melena, hematuria, dysuria. Today labs are pending, chest x-rays and echocardiogram. Patient had mild sleep apnea. Director Of Product Development recommended CPAP at night. He also recommended to start patient on Bumex 2 mg twice daily and ARB-s. Last echocardiogram is from July 2017 which shows ejection fraction of 65%, normal LV size and systolic function with no regular wall motion abnormalities. Ejection fraction 65%. Mild concentric left ventricular hypertrophy grade 2 diastolic dysfunction of the left ventricle, elevated left atrial pressure. Allergies Allergy/AdvReac Type Severity Reaction Status Date / Time No Known Drug Allergies Allergy Unknown . Verified 01/21/19 10:37 Home Medications Home Medications Medication Instructions Recorded Confirmed Type insulin aspart U-100 100 unit/mL See Rx Instructions SUBCUT 08/06/18 01/19/19 History (3 mL) subcutaneous pen DIRECTED insulin glargine U-300 conc 300 See Rx Instructions SUBCUT 08/06/18 01/19/19 History unit/mL (3 mL) subcutaneous pen DIRECTED lancets #50 ea 08/06/18 01/19/19 History cholecalciferol (vitamin D3) 2,000 2,000 units PO DAILY #90 tab 10/02/18 01/19/19 Rx unit tablet diclofenac sodium 1 % topical gel 1 % TOPICAL DIRECTED #100 gm 10/02/18 01/19/19 Rx liraglutide 0.6 mg/0.1 mL (18 mg/3 1.2 mg SUBCUT DIRECTED #9 ml 10/02/18 01/19/19 Rx mL) subcutaneous pen injector methocarbamol 500 mg tablet 500 mg PO TID PRN #90 tab 10/02/18 01/19/19 Rx oxycodone 10 mg tablet 10 mg PO Q4H PRN #30 tab 10/02/18 01/19/19 Rx pen needle, diabetic 31 gauge x #50 ea 10/02/18 01/19/19 Rx 3/16" aspirin 81 mg tablet 81 mg PO DAILY #30 tab 11/18/18 01/19/19 History losartan 25 mg tablet 25 mg PO DAILY 12/22/18 01/19/19 History gabapentin 400 mg capsule 400 mg PO TID #180 cap 12/31/18 01/19/19 Rx carvedilol 25 mg tablet 25 mg PO BID #60 tab 01/19/19 01/19/19 Rx levothyroxine 25 mcg tablet 25 mcg PO DIRECTED #45 tab 01/19/19 01/19/19 Rx furosemide 40 mg tablet 40 mg PO DAILY #30 tab 01/21/19 01/21/19 Rx atorvastatin 40 mg tablet 40 mg PO DAILY #30 tab 01/27/19 Rx sennosides 8.6 mg tablet 8.6 mg PO DAILY #30 tab 03/02/19 Rx Past Med/Surg History Medical History Anemia of chronic disease Arthritis of lumbar spine Atrial tachycardia Chronic back pain Chronic diastolic CHF (congestive heart failure) Chronic kidney disease, stage III (moderate) Diabetes mellitus with complication, with long-term current use of insulin Diabetic nephropathy Diabetic neuropathy Diabetic retinopathy, nonproliferative Diastolic CHF, acute (Resolved) Diverticulosis History of basal cell carcinoma History of nephrolithiasis HTN (hypertension) Hypercholesterolemia Hypothyroidism Internal hemorrhoids Lumbar radiculopathy LVH (left ventricular hypertrophy) Osteoarthritis Personal history of DVT (deep vein thrombosis) Proteinuria Vitamin D deficiency Surgical History H/O lithotripsy History of arthroscopic knee surgery L knee, x 2 History of hand surgery For Dupuytren's contractures-bilaterally History of shoulder surgery Right biceps tendon repair History of surgical removal of ganglion cyst S/P Mohs surgery for basal cell carcinoma L ear Status post lateral meniscus repair (Resolved) Family History Mother Myocardial infarction Stroke Diabetes Coronary heart disease Thyroid disease Father Myocardial infarction Alcohol abuse Brother Diabetes Sister Thyroid disease Social History Preferred Language: Uzbek Communication Ability: Effective Visual Impairment: No Limitations Hearing Ability: Normal Manager Enrollment Required: No Beliefs That Will Affect Care: None marital status: marital status details: Current Living Situation: Spouse Other Information That Helps Us Care for You: No Feels Safe at Home: Yes Safety Concerns: Feels Safe At This Time Smoking Status: Never smoker Tobacco Type: smokeless tobacco ; Do You Dip or Chew Tobacco: Yes ; Hx Alcohol Use: No Hx Substance Use: No Dental Care, Regularly: Yes Physical Activity Frequency: 3-4 Times per Week Physical Activity Frequency Comment: indoor bike Review of Systems Review of Systems: All systems reviewed & are unremarkable except as noted in HPI & below Physical Exam Constitutional: WD/WN, vitals as above well developed and + morbidly obese Eyes: PERRL, conjunctivae normal, anicteric sclerae ENMT: external ear and nose normal, oropharynx normal Neck: trachea midline, no thyromegaly Respiratory: normal respiratory effort, lungs clear to auscultation Cardiovascular: Rate/Rhythm: regular rate and regular rhythm Heart Sounds: normal S1 and normal S2 Palpation: + palpable S3 Vessels: + JVD and dorsalis pedis pulses present Extremities: + pedal edema Gastrointestinal (Abdomen): normal bowel sounds, soft, nontender, no hepatosplenomegaly Musculoskeletal: no cyanosis or clubbing, extremities motor strength 5/5 Neurologic: patellar DTR's 2+ bilat, sensation intact Psychiatric: A+Ox3, euthymic affect Lymphatic: no cervical or axillary lymphadenopathy Results & Data Vital Signs (Past 12 Hours) Vital Signs Temp Pulse Resp BP Pulse Ox 03/12/19 13:44 36.4 C L 82 18 174/72 H 94 Code Status & VTE Plan Code Status Full code VTE Prophylaxis Plan VTE Prophylaxis will be ordered: Yes PG Care Time/CCT Total # of Minutes Spent Total Time Spent with Patient: Total time spent is greater than 50% in coordination of care (as documented) at patient's floor/unit and/or counseling patient:
[2019-03-12] MEDS ORDERED: MAGNESIUM HYDROXIDE SUSP 30 ML UDC PO PRN (15:01)
[2019-03-12] MEDS ORDERED: DEXTROSE 50% 50 ML SYRINGE IV PRN (15:01)
[2019-03-12] MEDS ORDERED: ALUMINUM/MAGNESIUM SUSP 30 ML UDC PO PRN (15:01)
[2019-03-12] MEDS ORDERED: POLYETHYLENE (MIRALAX) 17 GM PACK PO PRN (15:01)
[2019-03-12] MEDS ORDERED: GLUCAGON FOR INJ 1 MG VIAL SQ PRN (15:01)
[2019-03-12] MEDS ORDERED: NITROGLYCERIN SL 0.4 MG/TAB TAB SL PRN (15:01)
[2019-03-12] MEDS ORDERED: GLUCOSE 10 TABS/TUBE PO PRN (15:01)
[2019-03-12] MEDS ORDERED: CARBOHYDRATES FOR HYPOGLYCEMIA PO PRN (15:01)
[2019-03-12] MEDS ORDERED: GLUCOSE 40% GEL 15 GM TUBE PO PRN (15:01)
[2019-03-12] MEDS ORDERED: INSULIN GLARGINE SQ SCH (15:01)
[2019-03-12] MEDS ORDERED: ACETAMINOPHEN 325 MG TAB PO PRN (15:01)
[2019-03-12] MEDS ORDERED: PHARMACY GLYCEMIC MGMT CONSULT PRN (15:16)
--- NOTE | 2019-03-12 15:22 | XRay Report ---
XR chest 1V portable CLINICAL HISTORY: acute CHF exec COMPARISON STUDY: 07/16/2018 FINDINGS: The heart is the upper limits of normal in size. There is no focal pulmonary consolidation. There are no pleural effusions. There is slight prominence of interstitial markings. This may be rel ated to technical factors given the patient's body habitus. There is no overt failure. IMPRESSION: Slight interstitial thickening, a finding which may be secondary technical factors. There is no overt failure. There is no focal pulmonary consolidation ACT 112: Negative or not required by law. Electronically signed by: Terry Hernandez M.D. 03/12/2019 3:21 PM
[2019-03-12 15:27] LABS: Basophils # (auto) 0.02 K/uL (0-0.2); Basophils % (auto) 0.2 %; Eosinophils # (auto) 0.24 K/uL (0-0.5); Eosinophils % (auto) 2.5 %; Hemoglobin 10.6 g/dL (14.0-18.0); Immature Granulocytes # (auto) 0.03 K/uL (0.00-0.02); Immature Granulocytes % (auto) 0.3 %; Lymphocytes # (auto) 0.95 K/uL (1.2-3.4); Mean Corpuscular Volume 84.2 fL (80-100); Mean Platelet Volume 9.4 fL (7.4-10.4); Monocytes # (auto) 0.93 K/uL (0.11-0.59); Monocytes % (auto) 9.8 %; Neutrophils # (auto) 7.31 K/uL (1.4-6.5); Neutrophils % (auto) 77.2 %; Platelet Count 230 K/uL (130-400); RDW Coefficient of Variation 15.4 % (11.5-14.5); RDW Standard Deviation 47.3 fL (36.4-46.3); Red Blood Count 3.92 M/uL (4.7-6.1); White Blood Count 9.48 K/uL (4.8-10.8)
[2019-03-12 15:28] LABS: Mean Corpuscular Hgb Conc 32.1 g/dL (32-36)
[2019-03-12] MEDS ORDERED: METHOCARBAMOL 500 MG TABLET PO PRN (15:30)
[2019-03-12 15:45] LABS: Albumin Level 3.1 gm/dl (3.4-5.0); BUN Creatinine Ratio 14.1 (10-20); Calcium 8.7 mg/dl (8.5-10.1); Est GFR (African American) 42.5; Est GFR (Non-African American) 36.7; Magnesium 2.2 mg/dl (1.8-2.4); Potassium 4.8 mmol/L (3.5-5.1)
[2019-03-12 15:56] LABS: Albumin Globulin Ratio 0.8 (0.9-2); Bilirubin,Total 0.3 mg/dl (0.2-1); Thyroid Stimulating Hormone 2.12 uIu/ml (0.300-4.500); Total Protein 7.1 gm/dl (6.4-8.2)
[2019-03-12] MEDS ORDERED: PERFLUTREN LIPID MICROSPHERE (DEFINITY) IV ONE (15:59)
[2019-03-12] MEDS: BUMETANIDE 2 MG in SYRINGE 0 ML IV SCH (16:26)
[2019-03-12] MEDS: LOSARTAN POTASSIUM 25 MG TAB PO SCH (16:27)
[2019-03-12] MEDS: DICLOFENAC SOD 1% GEL 100 GM TUBE EXT SCH ×2 (16:27→21:07)
--- NOTE | 2019-03-12 16:32 | Pharmacy Report ---
Glycemic Control Consultation - Date of Service March 12, 2019 - Scope Scope: Glycemic Pharmacist consulted by Dr. Looney on 03/12/2019 for glycemic control and to write orders per [facility] inpatient glycemic control protocol - Objective Weight: 134.4 kg Accuchecks BSG (last 24hrs): 03/12/19 03/12/19 13:55 15:13 Glucose 128 H POC Glucose 153 H Laboratory Data (last 24hrs): 03/12/19 15:13 Potassium 4.8 Carbon Dioxide 28 Anion Gap 4.0 Creatinine 1.90 H Est Cr Clr Drug Dosing 58.0 - Recent Pertinent Medications Outpatient Anti-diabetic Regimen: * Victoza 1.2 mg subcutaneously once weekly * Toujeo 65 units subcutaneously at night before bed * Novolog 25 units subcutaneously with meals and snacks + SSI (adds 3 units depending on BSG per patient) * A1c = 8.5% (12/19/2018) Risk Factors for Insulin Resistance: * Diet: * T2DM * Fluid Overload - Assessment & Plan Assessment & Plan: ASSESSMENT: * 63 yo M direct admit from manganese breaker's office secondary to acute exacerbation of congestive heart failure and recent 20 lb weight gain * PMHx significant for Diastolic HF, T2DM (insulin dependent), CKD-III, HTN, HLD, H/o DVT, Osteoarthritis * Patient is on Toujeo at home which will be converted to Lantus inpatient * Patient is significantly volume overloaded with 2+ pitting edema to bilater lower extremities, + JVD, + orthopnea * Started on Bumex 2 mg IV BID * Volume overload can contribute to poor insulin absorption PLAN FOR INPATIENT GLYCEMIC CONTROL: * Holding outpatient diabetes medications * Victoza * Basal insulin * Lantus 50 units SQ HS (~ 80% of home Toujeo dose and ~ wt & stress of 2) * Bolus insulin * NovoLog per scale ACHS or Q6hrs while NPO * Goal Range: Low 110 mg/dL - High 140 mg/dL * Correction Factor: 15 mg/dL/unit * Nutritional / Prandial insulin per carb ratio of 1 unit per 6 grams CHO consumed DISCHARGE RECOMMENDATIONS: * Pending at this time * Please note that the plan above was derived based on current level of insulin resistance and hospital stress. These recommendations are appropriate for inpatient admission only. Plan of care upon discharge will need to be reassessed to avoid potential outpatient hypo/hyperglycemia. Thank you.
[2019-03-12] MEDS: OXYCODONE HCL IR 5 MG TAB (IMMEDIATE RELEASE) PO PRN ×2 (17:01→20:57)
[2019-03-12] MEDS: INSULIN ASPART 100 UNITS/ML 3 ML PEN SC SCH ×2 (17:03→21:05)
[2019-03-12] MEDS ORDERED: Nursing to Pharmacy Communication ONE (17:55)
[2019-03-12] MEDS: GABAPENTIN 400 MG CAP PO SCH (20:59)
[2019-03-12] MEDS: carvediloL 25 MG TAB PO SCH (21:00)
[2019-03-12] MEDS: HEPARIN SOD 5,000 UNIT/0.5 ML VIAL SQ SCH (21:00)
[2019-03-12] MEDS: INSULIN GLARGINE SOLOSTAR 100 UNITS/ML 3 ML PEN SC SCH (21:02)
[2019-03-12] MEDS: bisacodyL 5 MG TABEC PO SCH (21:22)
[2019-03-13] MEDS: OXYCODONE HCL IR 5 MG TAB (IMMEDIATE RELEASE) PO PRN ×5 (01:14→20:03)
[2019-03-13] MEDS: LEVOTHYROXINE SODIUM 50 MCG TABLET PO SCH (05:57)
--- NOTE | 2019-03-13 06:16 | Electrocardiogram Report ---
Test Reason : Blood Pressure : / mmHG Vent. Rate : 073 BPM Atrial Rate : 073 BPM P-R Int : 234 ms QRS Dur : 090 ms QT Int : 386 ms P-R-T Axes : 034 -51 067 degrees QTc Int : 425 ms Sinus rhythm with 1st degree A-V block Low voltage QRS Left anterior fascicular block Abnormal ECG When compared with ECG of 18-JUL-2018 07:41, No significant change was found Confirmed by Tl Arriaza ([id number]) on 03/13/2019 6:16:03 AM Referred By: Eric Horta Confirmed By:Tl Arriaza
--- NOTE | 2019-03-13 06:50 | Cardiology Consultation ---
Date of Consultation March 13, 2019 Assessment & Plan (1) Acute exacerbation of CHF (congestive heart failure): (2) HTN (hypertension): (3) Hypercholesterolemia: (4) Diabetes mellitus with complication, with long-term current use of insulin: (5) Atrial tachycardia: History of Present Illness Attending Physician: Doug Looney MD History of Present Illness The patient is a 63-year-old male with a past medical history significant for diabetes mellitus obstructive sleep apnea chronic kidney disease stage III hyperlipidemia hypertension who is being seen today in a consultation after he was seen by his primary fifth hand Dr. Eric Ospina again and was noted that the patient was in a volume overload state. It was noted that he had increased 20 pounds and had a significant lower extremity edema up to nearly his waist. He was subsequently directly admitted to the hospitalist service and cardiology was consulted. And seen the patient this morning he notes that he is feeling better and is getting feeling back in his feet as he noted that his swelling was so bad that he could not feel his lower extremities. He denied any chest pain shortness of breath palpitations lightheadedness or any other cardiac complaints and is feeling better today. Allergies Allergy/AdvReac Type Severity Reaction Status Date / Time No Known Drug Allergies Allergy Unknown . Verified 01/21/19 10:37 Home Medications Home Medications Medication Instructions Recorded Confirmed Type insulin aspart U-100 100 unit/mL See Rx Instructions SUBCUT 08/06/18 01/19/19 History (3 mL) subcutaneous pen DIRECTED insulin glargine U-300 conc 300 See Rx Instructions SUBCUT 08/06/18 01/19/19 History unit/mL (3 mL) subcutaneous pen DIRECTED lancets #50 ea 08/06/18 01/19/19 History cholecalciferol (vitamin D3) 2,000 2,000 units PO DAILY #90 tab 10/02/18 01/19/19 Rx unit tablet diclofenac sodium 1 % topical gel 1 % TOPICAL DIRECTED #100 gm 10/02/18 01/19/19 Rx liraglutide 0.6 mg/0.1 mL (18 mg/3 1.2 mg SUBCUT DIRECTED #9 ml 10/02/18 01/19/19 Rx mL) subcutaneous pen injector methocarbamol 500 mg tablet 500 mg PO TID PRN #90 tab 08/01/19 11/18/19 Rx oxycodone 10 mg tablet 10 mg PO Q4H PRN #30 tab 10/02/18 01/19/19 Rx pen needle, diabetic 31 gauge x #50 ea 10/02/18 01/19/19 Rx 3/16" aspirin 81 mg tablet 81 mg PO DAILY #30 tab 11/18/18 01/19/19 History losartan 25 mg tablet 25 mg PO DAILY 12/22/18 01/19/19 History gabapentin 400 mg capsule 400 mg PO TID #180 cap 12/31/18 01/19/19 Rx carvedilol 25 mg tablet 25 mg PO BID #60 tab 01/19/19 01/19/19 Rx levothyroxine 25 mcg tablet 25 mcg PO DIRECTED #45 tab 01/19/19 01/19/19 Rx furosemide 40 mg tablet 40 mg PO DAILY #30 tab 01/21/19 01/21/19 Rx atorvastatin 40 mg tablet 40 mg PO DAILY #30 tab 01/27/19 Rx sennosides 8.6 mg tablet 8.6 mg PO DAILY #30 tab 03/02/19 Rx Patient History Medical History Anemia of chronic disease Arthritis of lumbar spine Atrial tachycardia Chronic back pain Chronic diastolic CHF (congestive heart failure) Chronic kidney disease, stage III (moderate) Diabetes mellitus with complication, with long-term current use of insulin Diabetic nephropathy Diabetic neuropathy Diabetic retinopathy, nonproliferative Diastolic CHF, acute (Resolved) Diverticulosis History of basal cell carcinoma History of nephrolithiasis HTN (hypertension) Hypercholesterolemia Hypothyroidism Internal hemorrhoids Lumbar radiculopathy LVH (left ventricular hypertrophy) Osteoarthritis Personal history of DVT (deep vein thrombosis) Proteinuria Vitamin D deficiency Surgical History H/O lithotripsy History of arthroscopic knee surgery L knee, x 2 History of hand surgery For Dupuytren's contractures-bilaterally History of shoulder surgery Right biceps tendon repair History of surgical removal of ganglion cyst S/P Mohs surgery for basal cell carcinoma L ear Status post lateral meniscus repair (Resolved) Family History Mother Myocardial infarction Stroke Diabetes Coronary heart disease Thyroid disease Father Myocardial infarction Alcohol abuse Brother Diabetes Sister Thyroid disease Social History Preferred Language: Italian Communication Ability: Effective Visual Impairment: No Limitations Hearing Ability: Normal [employer] Curer Required: No Beliefs That Will Affect Care: None marital status: marital status details: Current Living Situation: Spouse Other Information That Helps Us Care for You: No Feels Safe at Home: Yes Safety Concerns: Feels Safe At This Time Smoking Status: Never smoker Tobacco Type: smokeless tobacco ; Do You Dip or Chew Tobacco: Yes ; Hx Alcohol Use: No Hx Substance Use: No Dental Care, Regularly: Yes Physical Activity Frequency: 3-4 Times per Week Physical Activity Frequency Comment: indoor bike Review of Systems Review of Systems: All systems reviewed & are unremarkable except as noted in HPI & below Physical Exam Physical Exam: General appearance he is awake alert and oriented no apparent distress stable pleasant HEENT: Normocephalic atraumatic sclera nonicteric Neck: Supple no JVD bruits adenopathy or thyromegaly Cardiovascular exam: Regular rate and rhythm with no appreciable murmurs rubs or gallops Lungs: Clear to auscultation bilaterally Abdomen: Nontender nondistended positive bowel sounds Extremities: 2+ pitting edema lower extremities bilateral Neurological: Grossly nonfocal Results & Data Vital Signs (Past 12 Hours) Vital Signs Temp Pulse Pulse Resp BP Pulse Ox 03/13/19 04:15 36.8 C 73 18 121/72 92 03/12/19 23:24 36.7 C 77 132/66 91 03/12/19 20:19 36.7 C 77 18 154/73 H 92 03/12/19 20:00 79
[2019-03-13 08:37] LABS: Basophils # (auto) 0.03 K/uL (0-0.2); Basophils % (auto) 0.4 %; Eosinophils # (auto) 0.26 K/uL (0-0.5); Eosinophils % (auto) 3.1 %; Hematocrit (blood only) 34.8 % (42-52); Immature Granulocytes # (auto) 0.03 K/uL (0.00-0.02); Immature Granulocytes % (auto) 0.4 %; Lymphocytes # (auto) 1.44 K/uL (1.2-3.4); Lymphocytes % (auto) 17.2 %; Mean Corpuscular Hemoglobin 26.9 pg (25-34); Mean Corpuscular Hgb Conc 31.6 g/dL (32-36); Mean Corpuscular Volume 85.1 fL (80-100); Mean Platelet Volume 9.7 fL (7.4-10.4); Monocytes # (auto) 0.86 K/uL (0.11-0.59); Monocytes % (auto) 10.3 %; Neutrophils # (auto) 5.74 K/uL (1.4-6.5); Neutrophils % (auto) 68.6 %; Platelet Count 239 K/uL (130-400); RDW Coefficient of Variation 15.7 % (11.5-14.5); RDW Standard Deviation 48.6 fL (36.4-46.3); Red Blood Count 4.09 M/uL (4.7-6.1); White Blood Count 8.36 K/uL (4.8-10.8)
[2019-03-13] MEDS: INSULIN ASPART 100 UNITS/ML 3 ML PEN SC SCH ×4 (09:01→20:14)
[2019-03-13] MEDS: BUMETANIDE 2 MG in SYRINGE 0 ML IV SCH ×2 (09:03→15:52)
[2019-03-13] MEDS: GABAPENTIN 400 MG CAP PO SCH ×3 (09:04→20:06)
[2019-03-13] MEDS: SENNA 8.6 MG TAB PO SCH (09:05)
[2019-03-13] MEDS: CHOLECALCIFEROL 1,000 UNITS 25 MCG TAB PO SCH (09:05)
[2019-03-13] MEDS: ASPIRIN 81 MG ECTAB PO SCH (09:05)
[2019-03-13] MEDS: ATORVASTATIN 40 MG TAB PO SCH (09:05)
[2019-03-13] MEDS: LOSARTAN POTASSIUM 25 MG TAB PO SCH (09:06)
[2019-03-13] MEDS: HEPARIN SOD 5,000 UNIT/0.5 ML VIAL SQ SCH ×2 (09:06→20:07)
[2019-03-13] MEDS: carvediloL 25 MG TAB PO SCH ×2 (09:06→20:06)
[2019-03-13] MEDS: DICLOFENAC SOD 1% GEL 100 GM TUBE EXT SCH ×4 (09:07→20:08)
[2019-03-13 09:14] LABS: Albumin Level 3.1 gm/dl (3.4-5.0); BUN Creatinine Ratio 15.2 (10-20); Creatinine Clr Calc Pharmacy 58.1 ml/min; Est GFR (African American) 43.1; Est GFR (Non-African American) 37.2; Potassium 4.2 mmol/L (3.5-5.1)
[2019-03-13 09:18] LABS: Albumin Globulin Ratio 0.8 (0.9-2); Bilirubin,Total 0.5 mg/dl (0.2-1); Globulin 3.9 gm/dl (2.5-4.0)
[2019-03-13 09:34] LABS: Estimated Average Glucose 220 mg/dl; Hemoglobin A1C 9.3 % (4.5-5.6)
--- NOTE | 2019-03-13 14:44 | Hospitalist Progress Note ---
Date of Service March 13, 2019 Assessment & Plan (1) Acute on chronic diastolic CHF (congestive heart failure): - Presented with increased LE edema, symptoms c/w CHF exacerbation. - Echo showed EF 55-60%, no WMA, moderate LVH and no valvular abnormalities. - CXR neg for overt pulm edema. - Monitor daily weights and I/Os -- weight is trending down ~3 kg. - Low Na, fluid restriction 1200 cc. - Bumex 2 mg IV BID -- monitor renal function closely. - Continue Coreg and Losartan as prescribed. - Follows with Dr. Horta from [facility]. (2) Diabetes mellitus with complication, with long-term current use of insulin: - A1C is 9.3, previously 8.5. - Lantus 50 units qhs with SSI coverage - BG well controlled. (3) Diabetic nephropathy: - Continue to follow, renal function currently at baseline. (4) Diabetic neuropathy: - Continue Methocarbamol 500 mg TID prn, Gabapentin 400 mg TID & Voltaren gel prn. (5) Diabetic retinopathy, nonproliferative: - Follow with ophthalmology. (6) Hypercholesterolemia: - Continue statin as prescribed. (7) HTN (hypertension): - Continue Coreg 25 mg BID, Losartan 25 mg daily and Bumex IV BID. (8) Chronic kidney disease, stage III (moderate): - Follows with nephro as outpatient. - Creatinine currently at baseline, will monitor. (9) Hypothyroidism: - TSH 2.12; continue home Levothyroxine. (10) Anemia of chronic disease: - In setting of CKD. - Monitor CBC frequently. (11) Mild sleep apnea: - Pt. reports he was diagnosed with mild sleep apnea but has not used CPAP at home. - Currently refusing CPAP machine qhs. (12) Vitamin D deficiency: - Continue supplementation. DVT ppx: Heparin q12hr. Dispo: Downgrade to med/surg; continue treatment for CHF exacerbation. Subjective Pt. reports swelling is improved in legs. Denies SOB at rest or with exertion. Denies chest pain or cough. Pt. reports he had an outpatient sleep study and was diagnosed with "mild" obstructive sleep apnea. He has not been wearing CPAP machine at home, refusing to wear qhs as inpatient. Review of Systems Review of Systems: All systems reviewed & are unremarkable except as noted in HPI & below Constitutional: + fatigue and + weakness; no fever, no chills and no anorexia Respiratory: no cough, no dyspnea, no dyspnea on exertion and no wheezing Cardiovascular: + edema; no chest pain and no palpitations Gastrointestinal: no abdominal pain, no nausea and no constipation Genitourinary: no difficulty urinating Musculoskeletal: no back pain and no joint pain Integumentary: no non-healing lesions Physical Exam Physical Exam: General: Resting comfortably HEENT: NC/AT; PERRLA with EOMI; Enigma conjunctiva, MMM. No erythema of posterior pharynx Neck: Supple and nontender Cardiac: RRR Lungs: on room air; crackles in bilat lung bases Abdomen: Bowel normoactive X 4; Nontender to palpation Extremities: Warm. +2 bilat LE pitting edema Neuro: No focal weakness Skin: No rash Results & Data Vital Signs (Past 12 Hours) Vital Signs Temp Pulse Pulse Resp BP BP Pulse Ox 03/13/19 11:37 36.8 C 74 18 143/77 H 93 03/13/19 07:54 70 03/13/19 07:38 36.7 C 72 19 143/67 H 91 03/13/19 04:15 36.8 C 73 18 121/72 92 Laboratory Results 03/13/19 03/13/19 03/13/19 Range/Units 11:16 07:48 07:48 WBC (4.8-10.8) K/uL RBC (4.7-6.1) M/uL Hgb (14.0-18.0) g/dL Hct (42-52) % MCV (80-100) fL MCH (25-34) pg MCHC (32-36) g/dL RDW Std Deviation (36.4-46.3) fL RDW Coeff of Milly (11.5-14.5) % Plt Count (130-400) K/uL MPV (7.4-10.4) fL Immature Gran % (Auto) % Neut % (Auto) % Lymph % (Auto) % Kings % (Auto) % Eos % (Auto) % Baso % (Auto) % Immature Gran # (Auto) (0.00-0.02) K/uL Neut # (Auto) (1.4-6.5) K/uL Lymph # (Auto) (1.2-3.4) K/uL Kings # (Auto) (0.11-0.59) K/uL Eos # (Auto) (0-0.5) K/uL Baso # (Auto) (0-0.2) K/uL Sodium (136-145) mmol/L Potassium (3.5-5.1) mmol/L Chloride (98-107) mmol/L Carbon Dioxide (21-32) mmol/L Anion Gap (3-11) BUN (7-18) mg/dl Creatinine (0.6-1.4) mg/dl Est Cr Clr Drug Dosing ml/min Est GFR ( Amer) Est GFR (Non-Af Amer) BUN/Creatinine Ratio (10-20) Glucose (70-99) mg/dl POC Glucose 171 H (70-99) Estimat Average Glucose 220 mg/dl Hemoglobin A1c 9.3 H (4.5-5.6) % Calcium (8.5-10.1) mg/dl Magnesium (1.8-2.4) mg/dl Total Bilirubin (0.2-1) mg/dl AST (15-37) U/L ALT (12-78) U/L Alkaline Phosphatase (45-117) U/L Troponin I (0-0.045) ng/ml NT-Pro-B Natriuret Pep (0-900) pg/ml Total Protein (6.4-8.2) gm/dl Albumin (3.4-5.0) gm/dl Globulin (2.5-4.0) gm/dl Albumin/Globulin Ratio (0.9-2) Triglycerides (0-150) mg/dl Cholesterol (0-200) mg/dl LDL Cholesterol, Calc mg/dl VLDL Cholesterol, Calc mg/dl HDL Cholesterol mg/dl Cholesterol/HDL Ratio 25-OH Vitamin D Total 33.2 (30-100) ng/ml TSH (0.300-4.500) uIu/ml 03/13/19 03/13/19 03/13/19 Range/Units 07:48 07:48 06:57 WBC 8.36 (4.8-10.8) K/uL RBC 4.09 L (4.7-6.1) M/uL Hgb 11.0 L (14.0-18.0) g/dL Hct 34.8 L (42-52) % MCV 85.1 (80-100) fL MCH 26.9 (25-34) pg MCHC 31.6 L (32-36) g/dL RDW Std Deviation 48.6 H (36.4-46.3) fL RDW Coeff of Milly 15.7 H (11.5-14.5) % Plt Count 239 (130-400) K/uL MPV 9.7 (7.4-10.4) fL Immature Gran % (Auto) 0.4 % Neut % (Auto) 68.6 % Lymph % (Auto) 17.2 % Kings % (Auto) 10.3 % Eos % (Auto) 3.1 % Baso % (Auto) 0.4 % Immature Gran # (Auto) 0.03 H (0.00-0.02) K/uL Neut # (Auto) 5.74 (1.4-6.5) K/uL Lymph # (Auto) 1.44 (1.2-3.4) K/uL Kings # (Auto) 0.86 H (0.11-0.59) K/uL Eos # (Auto) 0.26 (0-0.5) K/uL Baso # (Auto) 0.03 (0-0.2) K/uL Sodium 137 (136-145) mmol/L Potassium 4.2 (3.5-5.1) mmol/L Chloride 102 (98-107) mmol/L Carbon Dioxide 31 (21-32) mmol/L Anion Gap 4.0 (3-11) BUN 29 H (7-18) mg/dl Creatinine 1.88 H (0.6-1.4) mg/dl Est Cr Clr Drug Dosing 58.1 ml/min Est GFR ( Amer) 43.1 Est GFR (Non-Af Amer) 37.2 BUN/Creatinine Ratio 15.2 (10-20) Glucose 113 H (70-99) mg/dl POC Glucose 133 H (70-99) Estimat Average Glucose mg/dl Hemoglobin A1c (4.5-5.6) % Calcium 9.0 (8.5-10.1) mg/dl Magnesium (1.8-2.4) mg/dl Total Bilirubin 0.5 (0.2-1) mg/dl AST 21 (15-37) U/L ALT 26 (12-78) U/L Alkaline Phosphatase 75 (45-117) U/L Troponin I (0-0.045) ng/ml NT-Pro-B Natriuret Pep (0-900) pg/ml Total Protein 7.0 (6.4-8.2) gm/dl Albumin 3.1 L (3.4-5.0) gm/dl Globulin 3.9 (2.5-4.0) gm/dl Albumin/Globulin Ratio 0.8 L (0.9-2) Triglycerides 171 H (0-150) mg/dl Cholesterol 119 (0-200) mg/dl LDL Cholesterol, Calc 54 mg/dl VLDL Cholesterol, Calc 34 mg/dl HDL Cholesterol 31 mg/dl Cholesterol/HDL Ratio 4 25-OH Vitamin D Total (30-100) ng/ml TSH (0.300-4.500) uIu/ml 03/12/19 03/12/19 03/12/19 Range/Units 20:12 16:41 15:13 WBC (4.8-10.8) K/uL RBC (4.7-6.1) M/uL Hgb (14.0-18.0) g/dL Hct (42-52) % MCV (80-100) fL MCH (25-34) pg MCHC (32-36) g/dL RDW Std Deviation (36.4-46.3) fL RDW Coeff of Milly (11.5-14.5) % Plt Count (130-400) K/uL MPV (7.4-10.4) fL Immature Gran % (Auto) % Neut % (Auto) % Lymph % (Auto) % Kings % (Auto) % Eos % (Auto) % Baso % (Auto) % Immature Gran # (Auto) (0.00-0.02) K/uL Neut # (Auto) (1.4-6.5) K/uL Lymph # (Auto) (1.2-3.4) K/uL Kings # (Auto) (0.11-0.59) K/uL Eos # (Auto) (0-0.5) K/uL Baso # (Auto) (0-0.2) K/uL Sodium (136-145) mmol/L Potassium (3.5-5.1) mmol/L Chloride (98-107) mmol/L Carbon Dioxide (21-32) mmol/L Anion Gap (3-11) BUN (7-18) mg/dl Creatinine (0.6-1.4) mg/dl Est Cr Clr Drug Dosing ml/min Est GFR ( Amer) Est GFR (Non-Af Amer) BUN/Creatinine Ratio (10-20) Glucose (70-99) mg/dl POC Glucose 134 H 106 H (70-99) Estimat Average Glucose mg/dl Hemoglobin A1c (4.5-5.6) % Calcium (8.5-10.1) mg/dl Magnesium (1.8-2.4) mg/dl Total Bilirubin (0.2-1) mg/dl AST (15-37) U/L ALT (12-78) U/L Alkaline Phosphatase (45-117) U/L Troponin I < 0.015 (0-0.045) ng/ml NT-Pro-B Natriuret Pep (0-900) pg/ml Total Protein (6.4-8.2) gm/dl Albumin (3.4-5.0) gm/dl Globulin (2.5-4.0) gm/dl Albumin/Globulin Ratio (0.9-2) Triglycerides (0-150) mg/dl Cholesterol (0-200) mg/dl LDL Cholesterol, Calc mg/dl VLDL Cholesterol, Calc mg/dl HDL Cholesterol mg/dl Cholesterol/HDL Ratio 25-OH Vitamin D Total (30-100) ng/ml TSH (0.300-4.500) uIu/ml 03/12/19 03/12/19 Range/Units 15:13 15:13 WBC 9.48 (4.8-10.8) K/uL RBC 3.92 L (4.7-6.1) M/uL Hgb 10.6 L (14.0-18.0) g/dL Hct 33.0 L (42-52) % MCV 84.2 (80-100) fL MCH 27.0 (25-34) pg MCHC 32.1 (32-36) g/dL RDW Std Deviation 47.3 H (36.4-46.3) fL RDW Coeff of Milly 15.4 H (11.5-14.5) % Plt Count 230 (130-400) K/uL MPV 9.4 (7.4-10.4) fL Immature Gran % (Auto) 0.3 % Neut % (Auto) 77.2 % Lymph % (Auto) 10.0 % Kings % (Auto) 9.8 % Eos % (Auto) 2.5 % Baso % (Auto) 0.2 % Immature Gran # (Auto) 0.03 H (0.00-0.02) K/uL Neut # (Auto) 7.31 H (1.4-6.5) K/uL Lymph # (Auto) 0.95 L (1.2-3.4) K/uL Kings # (Auto) 0.93 H (0.11-0.59) K/uL Eos # (Auto) 0.24 (0-0.5) K/uL Baso # (Auto) 0.02 (0-0.2) K/uL Sodium 135 L (136-145) mmol/L Potassium 4.8 (3.5-5.1) mmol/L Chloride 103 (98-107) mmol/L Carbon Dioxide 28 (21-32) mmol/L Anion Gap 4.0 (3-11) BUN 27 H (7-18) mg/dl Creatinine 1.90 H (0.6-1.4) mg/dl Est Cr Clr Drug Dosing 58.0 ml/min Est GFR ( Amer) 42.5 Est GFR (Non-Af Amer) 36.7 BUN/Creatinine Ratio 14.1 (10-20) Glucose 128 H (70-99) mg/dl POC Glucose (70-99) Estimat Average Glucose mg/dl Hemoglobin A1c (4.5-5.6) % Calcium 8.7 (8.5-10.1) mg/dl Magnesium 2.2 (1.8-2.4) mg/dl Total Bilirubin 0.3 (0.2-1) mg/dl AST 28 (15-37) U/L ALT 31 (12-78) U/L Alkaline Phosphatase 78 (45-117) U/L Troponin I (0-0.045) ng/ml NT-Pro-B Natriuret Pep 259 (0-900) pg/ml Total Protein 7.1 (6.4-8.2) gm/dl Albumin 3.1 L (3.4-5.0) gm/dl Globulin 4.0 (2.5-4.0) gm/dl Albumin/Globulin Ratio 0.8 L (0.9-2) Triglycerides (0-150) mg/dl Cholesterol (0-200) mg/dl LDL Cholesterol, Calc mg/dl VLDL Cholesterol, Calc mg/dl HDL Cholesterol mg/dl Cholesterol/HDL Ratio 25-OH Vitamin D Total (30-100) ng/ml TSH 2.120 (0.300-4.500) uIu/ml PG Care Time/CCT Total # of Minutes Spent Total Time Spent with Patient: Total time spent is greater than 50% in coordination of care (as documented) at patient's floor/unit and/or counseling patient:
[2019-03-13] MEDS: bisacodyL 5 MG TABEC PO SCH (20:07)
[2019-03-13] MEDS: INSULIN GLARGINE SOLOSTAR 100 UNITS/ML 3 ML PEN SC SCH (20:12)
[2019-03-14] MEDS: OXYCODONE HCL IR 5 MG TAB (IMMEDIATE RELEASE) PO PRN ×5 (01:08→20:07)
[2019-03-14] MEDS: LEVOTHYROXINE SODIUM 25 MCG TABLET PO SCH (05:33)
[2019-03-14 06:18] LABS: Basophils # (auto) 0.01 K/uL (0-0.2); Basophils % (auto) 0.1 %; Eosinophils # (auto) 0.22 K/uL (0-0.5); Eosinophils % (auto) 2.9 %; Hematocrit (blood only) 34.1 % (42-52); Immature Granulocytes # (auto) 0.03 K/uL (0.00-0.02); Immature Granulocytes % (auto) 0.4 %; Lymphocytes # (auto) 1.29 K/uL (1.2-3.4); Lymphocytes % (auto) 17.3 %; Mean Corpuscular Hemoglobin 27.1 pg (25-34); Mean Corpuscular Hgb Conc 32.3 g/dL (32-36); Mean Platelet Volume 9.9 fL (7.4-10.4); Monocytes # (auto) 0.79 K/uL (0.11-0.59); Monocytes % (auto) 10.6 %; Neutrophils # (auto) 5.13 K/uL (1.4-6.5); Neutrophils % (auto) 68.7 %; Platelet Count 231 K/uL (130-400); RDW Coefficient of Variation 15.6 % (11.5-14.5); RDW Standard Deviation 47.8 fL (36.4-46.3); Red Blood Count 4.06 M/uL (4.7-6.1); White Blood Count 7.47 K/uL (4.8-10.8)
[2019-03-14 06:56] LABS: BUN Creatinine Ratio 15.6 (10-20); Calcium 8.9 mg/dl (8.5-10.1); Creatinine Clr Calc Pharmacy 60.3 ml/min; Est GFR (African American) 45.1; Est GFR (Non-African American) 38.9; Potassium 4.1 mmol/L (3.5-5.1)
[2019-03-14 06:59] LABS: Albumin Globulin Ratio 0.8 (0.9-2); Bilirubin,Total 0.4 mg/dl (0.2-1); Globulin 3.9 gm/dl (2.5-4.0); Total Protein 6.9 gm/dl (6.4-8.2)
[2019-03-14] MEDS: BUMETANIDE 2 MG in SYRINGE 0 ML IV SCH ×2 (09:41→17:40)
[2019-03-14] MEDS: SENNA 8.6 MG TAB PO SCH (09:42)
[2019-03-14] MEDS: LOSARTAN POTASSIUM 25 MG TAB PO SCH (09:42)
[2019-03-14] MEDS: carvediloL 25 MG TAB PO SCH ×2 (09:43→20:07)
[2019-03-14] MEDS: ATORVASTATIN 40 MG TAB PO SCH (09:43)
[2019-03-14] MEDS: GABAPENTIN 400 MG CAP PO SCH ×3 (09:43→20:07)
[2019-03-14] MEDS: ASPIRIN 81 MG ECTAB PO SCH (09:43)
[2019-03-14] MEDS: HEPARIN SOD 5,000 UNIT/0.5 ML VIAL SQ SCH ×2 (09:44→20:11)
[2019-03-14] MEDS: CHOLECALCIFEROL 1,000 UNITS 25 MCG TAB PO SCH (09:44)
--- NOTE | 2019-03-14 10:59 | Pharmacy Report ---
Pharmacy Glycemic Short Note 2 - Date of Service March 14, 2019 - Glycemic Short BSG Results (Last 24 hours): 03/13/19 03/13/19 03/13/19 11:16 16:34 20:13 Glucose POC Glucose 171 H 189 H 208 H 03/14/19 03/14/19 05:26 08:05 Glucose 104 H POC Glucose 118 H OUTPATIENT ANTIDIABETIC REGIMEN: * Victoza 1.2 mg subcutaneously once weekly * Toujeo 65 units subcutaneously at night before bed * Novolog 25 units subcutaneously with meals and snacks + SSI (adds 3 units depending on BSG per patient) * A1c = 8.5% (12/19/2018) ASSESSMENT: 03/14 * Patient is currently receiving an average of 80 units of insulin per day * 50 units of basal insulin * 31 units of prandial/correctional insulin * BSGs ranging 104-208 over the past 24hrs * Risk factors for insulin resistance are constant over the past 24hrs * Anticipating insulin regimen will need adjusted for the next 24hrs d/t : * AM Fasting BSG = 104 therefore Basal insulin needs decreased * Total daily dose = 80 therefore may need to evenly re-distribute regimen 50%:50% basal:prandial to prevent hypo/hyperglycemia * Post-prandial BSGs are elevated/BSGs rise throughout the day therefore Tighten CF/CR * BSG at lunch is inaccurate d/t late AM Novolog AND check 30 min after patient started eating * Risa Holliday adjusted Novolog but wishes for pharmacy to continue managing * Will adjust CR as well since Lantus will be lowered and postprandial BSGs were still elevated yesterday 03/12 * 63 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 secondary to acute exacerbation of congestive heart failure and recent 20 lb weight gain * PMHx significant for Diastolic HF, T2DM (insulin dependent), CKD-III, HTN, HLD, H/o DVT, Osteoarthritis * Patient is on Toujeo at home which will be converted to Lantus inpatient * Patient is significantly volume overloaded with 2+ pitting edema to bilater lower extremities, + JVD, + orthopnea * Started on Bumex 2 mg IV BID * Volume overload can contribute to poor insulin absorption PLAN FOR INPATIENT GLYCEMIC CONTROL: * Hold outpatient GLP-1 * Basal insulin - decrease * Lantus 40 units SQ qHS * Bolus insulin - tighten CF/CR * NovoLog per scale ACHS or Q6hrs while NPO * Goal Range: Low 110 mg/dL - High 140 mg/dL * Correction Factor: 12 mg/dL/unit * Nutritional / Prandial insulin per carb ratio of 1 unit per 4 grams CHO consumed PLAN FOR DISCHARGE: * A1c 9.3% on 03/13/19 * Goal A1c < 8% based on age/comorbidities * Plan to be determined
[2019-03-14] MEDS: INSULIN ASPART 100 UNITS/ML 3 ML PEN SC SCH ×4 (11:13→20:08)
[2019-03-14] MEDS: DICLOFENAC SOD 1% GEL 100 GM TUBE EXT SCH ×4 (11:15→20:11)
--- NOTE | 2019-03-14 14:39 | Hospitalist Progress Note ---
Date of Service March 14, 2019 Assessment & Plan (1) Acute on chronic diastolic CHF (congestive heart failure): - Presented with increased LE edema, symptoms c/w CHF exacerbation. LE edema is improving overall. - Echo showed EF 55-60%, no WMA, moderate LVH and no valvular abnormalities. - CXR neg for overt pulm edema. - Monitor daily weights and I/Os -- weight is trending down ~7 kg since admission. - Low Na, fluid restriction 1200 cc. - Bumex 2 mg IV BID -- monitor renal function closely. - Continue Coreg and Losartan as prescribed. - Follows with Dr. Horta from [facility]. Cardio consulted as inpatient. (2) Diabetes mellitus with complication, with long-term current use of insulin: - A1C is 9.3, previously 8.5. - Lantus 50 units qhs with SSI coverage - BG has been elevated, will adjust SSI coverage. (3) Diabetic nephropathy: - Continue to follow, renal function currently at baseline. (4) Diabetic neuropathy: - Continue Methocarbamol 500 mg TID prn, Gabapentin 400 mg TID & Voltaren gel prn. (5) Diabetic retinopathy, nonproliferative: - Follow with ophthalmology. (6) Hypercholesterolemia: - Continue statin as prescribed. (7) HTN (hypertension): - Continue Coreg 25 mg BID, Losartan 25 mg daily and Bumex IV BID. (8) Chronic kidney disease, stage III (moderate): - Follows with nephro as outpatient. - Creatinine currently at baseline, will monitor. (9) Hypothyroidism: - TSH 2.12; continue home Levothyroxine. (10) Anemia of chronic disease: - In setting of CKD. - Monitor CBC frequently. (11) Mild sleep apnea: - Pt. reports he was diagnosed with mild sleep apnea but has not used CPAP at home. - Currently refusing CPAP machine qhs. (12) Vitamin D deficiency: - Continue supplementation. DVT ppx: Heparin q12hr. Dispo: Med/surg; continue treatment for CHF exacerbation. Subjective Pt. reports LE edema is improving; thigh edema now resolving. Denies SOB, chest pain, cough. Review of Systems Review of Systems: All systems reviewed & are unremarkable except as noted in HPI & below Constitutional: no fever, no chills, no fatigue, no weakness and no anorexia Respiratory: no cough, no dyspnea and no dyspnea on exertion Cardiovascular: + edema; no chest pain and no palpitations Gastrointestinal: no abdominal pain, no nausea, no vomiting and no constipation Genitourinary: no difficulty urinating Musculoskeletal: no back pain and no joint pain Physical Exam Physical Exam: General: Resting comfortably, no acute distress HEENT: NC/AT; PERRLA with EOMI; [place] conjunctiva, MMM. No erythema of posterior pharynx Neck: Supple and nontender Cardiac: RRR Lungs: on room air; CTA throughout Abdomen: Bowel normoactive X 4; Nontender to palpation Extremities: Warm. +2 bilat calf edema, no thigh edema noted. Neuro: No focal weakness Skin: No rash Results & Data Vital Signs (Past 12 Hours) Vital Signs Temp Pulse Resp BP Pulse Ox 03/14/19 07:19 36.6 C 70 17 131/70 90 Laboratory Results 03/14/19 03/14/19 03/14/19 Range/Units 13:06 08:05 05:26 WBC (4.8-10.8) K/uL RBC (4.7-6.1) M/uL Hgb (14.0-18.0) g/dL Hct (42-52) % MCV (80-100) fL MCH (25-34) pg MCHC (32-36) g/dL RDW Std Deviation (36.4-46.3) fL RDW Coeff of Milly (11.5-14.5) % Plt Count (130-400) K/uL MPV (7.4-10.4) fL Immature Gran % (Auto) % Neut % (Auto) % Lymph % (Auto) % [place] % (Auto) % Eos % (Auto) % Baso % (Auto) % Immature Gran # (Auto) (0.00-0.02) K/uL Neut # (Auto) (1.4-6.5) K/uL Lymph # (Auto) (1.2-3.4) K/uL [place] # (Auto) (0.11-0.59) K/uL Eos # (Auto) (0-0.5) K/uL Baso # (Auto) (0-0.2) K/uL Sodium 137 (136-145) mmol/L Potassium 4.1 (3.5-5.1) mmol/L Chloride 102 (98-107) mmol/L Carbon Dioxide 32 (21-32) mmol/L Anion Gap 3.0 (3-11) BUN 28 H (7-18) mg/dl Creatinine 1.81 H (0.6-1.4) mg/dl Est Cr Clr Drug Dosing 60.3 ml/min Est GFR ( Amer) 45.1 Est GFR (Non-Af Amer) 38.9 BUN/Creatinine Ratio 15.6 (10-20) Glucose 104 H (70-99) mg/dl POC Glucose 278 H 118 H (70-99) Calcium 8.9 (8.5-10.1) mg/dl Total Bilirubin 0.4 (0.2-1) mg/dl AST 25 (15-37) U/L ALT 28 (12-78) U/L Alkaline Phosphatase 70 (45-117) U/L Total Protein 6.9 (6.4-8.2) gm/dl Albumin 3.0 L (3.4-5.0) gm/dl Globulin 3.9 (2.5-4.0) gm/dl Albumin/Globulin Ratio 0.8 L (0.9-2) 03/14/19 03/13/19 03/13/19 Range/Units 05:26 20:13 16:34 WBC 7.47 (4.8-10.8) K/uL RBC 4.06 L (4.7-6.1) M/uL Hgb 11.0 L (14.0-18.0) g/dL Hct 34.1 L (42-52) % MCV 84.0 (80-100) fL MCH 27.1 (25-34) pg MCHC 32.3 (32-36) g/dL RDW Std Deviation 47.8 H (36.4-46.3) fL RDW Coeff of Milly 15.6 H (11.5-14.5) % Plt Count 231 (130-400) K/uL MPV 9.9 (7.4-10.4) fL Immature Gran % (Auto) 0.4 % Neut % (Auto) 68.7 % Lymph % (Auto) 17.3 % [place] % (Auto) 10.6 % Eos % (Auto) 2.9 % Baso % (Auto) 0.1 % Immature Gran # (Auto) 0.03 H (0.00-0.02) K/uL Neut # (Auto) 5.13 (1.4-6.5) K/uL Lymph # (Auto) 1.29 (1.2-3.4) K/uL [place] # (Auto) 0.79 H (0.11-0.59) K/uL Eos # (Auto) 0.22 (0-0.5) K/uL Baso # (Auto) 0.01 (0-0.2) K/uL Sodium (136-145) mmol/L Potassium (3.5-5.1) mmol/L Chloride (98-107) mmol/L Carbon Dioxide (21-32) mmol/L Anion Gap (3-11) BUN (7-18) mg/dl Creatinine (0.6-1.4) mg/dl Est Cr Clr Drug Dosing ml/min Est GFR ( Amer) Est GFR (Non-Af Amer) BUN/Creatinine Ratio (10-20) Glucose (70-99) mg/dl POC Glucose 208 H 189 H (70-99) Calcium (8.5-10.1) mg/dl Total Bilirubin (0.2-1) mg/dl AST (15-37) U/L ALT (12-78) U/L Alkaline Phosphatase (45-117) U/L Total Protein (6.4-8.2) gm/dl Albumin (3.4-5.0) gm/dl Globulin (2.5-4.0) gm/dl Albumin/Globulin Ratio (0.9-2) PG Care Time/CCT Total # of Minutes Spent Total Time Spent with Patient: Total time spent is greater than 50% in coordination of care (as documented) at patient's floor/unit and/or counseling patient:
--- NOTE | 2019-03-14 15:38 | Cardiology Progress Note ---
Date of Service March 14, 2019 Subjective Pt is improving everyday with weights trending down. approximately 4kg over last 24 hrs with leg swelling improving. No complaints of CP ,SOB or palpitations noted. Review of Systems Review of Systems: All systems reviewed & are unremarkable except as noted in HPI & below Results & Data Vital Signs (Past 12 Hours) Vital Signs Temp Pulse Resp BP Pulse Ox 03/14/19 15:10 36.7 C 72 18 148/79 H 92 03/14/19 07:19 36.6 C 70 17 131/70 90 1. HFpEF 2. DM 3. CKD III 4. HTN 5. Hyperlipidemia Plan : 1. Patient down 7 kg since admission. Continue with IV Bumex and monitor response. If continues overnight with good outputs and weight loss would transition over to PO Bumex 2mg po bid tomorrow in preparation for discharge. Continue to monitor I/O's daily weights, BMP. noting improved Cr and sodium. electrolytes stable. On restricted low sodium diet and fluid restriction. Nephrology consulted and following as well. Pt will follow up with Dr. Horta his primary privacy officer post discharge to reassess as outpatient and adjust his diuretics accordingly from there.
[2019-03-14] MEDS: bisacodyL 5 MG TABEC PO SCH (20:13)
[2019-03-14] MEDS ORDERED: INSULIN GLARGINE SOLOSTAR 100 UNITS/ML 3 ML PEN SC SCH (21:00)
[2019-03-15] MEDS: OXYCODONE HCL IR 5 MG TAB (IMMEDIATE RELEASE) PO PRN ×4 (00:08→17:44)
[2019-03-15 05:55] LABS: Basophils # (auto) 0.01 K/uL (0-0.2); Basophils % (auto) 0.1 %; Eosinophils # (auto) 0.27 K/uL (0-0.5); Eosinophils % (auto) 3.2 %; Hematocrit (blood only) 33.6 % (42-52); Hemoglobin 11.1 g/dL (14.0-18.0); Immature Granulocytes # (auto) 0.03 K/uL (0.00-0.02); Immature Granulocytes % (auto) 0.4 %; Lymphocytes # (auto) 1.42 K/uL (1.2-3.4); Mean Corpuscular Volume 84.8 fL (80-100); Mean Platelet Volume 9.6 fL (7.4-10.4); Monocytes # (auto) 0.85 K/uL (0.11-0.59); Monocytes % (auto) 10.2 %; Neutrophils # (auto) 5.76 K/uL (1.4-6.5); Neutrophils % (auto) 69.1 %; Platelet Count 238 K/uL (130-400); RDW Coefficient of Variation 15.5 % (11.5-14.5); RDW Standard Deviation 48.3 fL (36.4-46.3); Red Blood Count 3.96 M/uL (4.7-6.1); White Blood Count 8.34 K/uL (4.8-10.8)
[2019-03-15 06:32] LABS: BUN Creatinine Ratio 16.5 (10-20); Calcium 8.9 mg/dl (8.5-10.1); Creatinine Clr Calc Pharmacy 52.8 ml/min; Est GFR (African American) 39.5; Est GFR (Non-African American) 34.1; Potassium 4.2 mmol/L (3.5-5.1)
[2019-03-15 06:35] LABS: Albumin Globulin Ratio 0.8 (0.9-2); Bilirubin,Total 0.4 mg/dl (0.2-1); Globulin 3.9 gm/dl (2.5-4.0); Total Protein 6.9 gm/dl (6.4-8.2)
[2019-03-15] MEDS: LEVOTHYROXINE SODIUM 25 MCG TABLET PO SCH (06:36)
[2019-03-15] MEDS: GABAPENTIN 400 MG CAP PO SCH ×3 (07:56→20:27)
[2019-03-15] MEDS: LOSARTAN POTASSIUM 25 MG TAB PO SCH (07:57)
[2019-03-15] MEDS: ASPIRIN 81 MG ECTAB PO SCH (07:57)
[2019-03-15] MEDS: carvediloL 25 MG TAB PO SCH ×2 (07:57→20:28)
[2019-03-15] MEDS: ATORVASTATIN 40 MG TAB PO SCH (07:57)
[2019-03-15] MEDS: CHOLECALCIFEROL 1,000 UNITS 25 MCG TAB PO SCH (07:57)
[2019-03-15] MEDS: INSULIN ASPART 100 UNITS/ML 3 ML PEN SC SCH ×4 (09:07→20:31)
[2019-03-15] MEDS: HEPARIN SOD 5,000 UNIT/0.5 ML VIAL SQ SCH ×2 (09:08→20:31)
[2019-03-15] MEDS: DICLOFENAC SOD 1% GEL 100 GM TUBE EXT SCH ×4 (09:09→20:29)
--- NOTE | 2019-03-15 10:46 | Pharmacy Report ---
Pharmacy Glycemic Short Note 2 - Date of Service March 15, 2019 - Glycemic Short BSG Results (Last 24 hours): 03/14/19 03/14/19 03/14/19 13:06 16:31 20:05 Glucose POC Glucose 278 H 181 H 205 H 03/15/19 03/15/19 05:20 08:05 Glucose 147 H POC Glucose 140 H OUTPATIENT ANTIDIABETIC REGIMEN: * Victoza 1.2 mg subcutaneously once weekly - patient stopped taking this * Toujeo 65 units subcutaneously at night before bed * Novolog 25 units subcutaneously with meals and snacks + SSI (adds 3 units depending on BSG per patient) * A1c = 8.5% (12/19/2018) ASSESSMENT: 03/15 * Patient is currently receiving an average of 100 units of insulin per day * 40 units of basal insulin * 60 units of prandial/correctional insulin * BSGs ranging 140-278 over the past 24hrs * Risk factors for insulin resistance are constant over the past 24hrs * Basal dose was lowered yesterday to evenly distribute basal/bolus regimen and since fasting BSG on the lower side. Improved today but may need to increase if this trends upwards. * CF/CR parameters just tightened with dinner last night but lunch BSG elevated again today. Nurse confirmed it was taken PRIOR to eating. AM Novolog given a little late but should be seeing the effects of this dose. Will plan to tighten parameters further. 03/14 * Patient is currently receiving an average of 80 units of insulin per day * 50 units of basal insulin * 31 units of prandial/correctional insulin * BSGs ranging 104-208 over the past 24hrs * Risk factors for insulin resistance are constant over the past 24hrs * Anticipating insulin regimen will need adjusted for the next 24hrs d/t : * AM Fasting BSG = 104 therefore Basal insulin needs decreased * Total daily dose = 80 therefore may need to evenly re-distribute regimen 50%:50% basal:prandial to prevent hypo/hyperglycemia * Post-prandial BSGs are elevated/BSGs rise throughout the day therefore Tighten CF/CR * BSG at lunch is inaccurate d/t late AM Novolog AND check 30 min after patient started eating * Risa Holliday adjusted Novolog but wishes for pharmacy to continue managing * Will adjust CR as well since Lantus will be lowered and postprandial BSGs were still elevated yesterday 1/9 * 63 yo M direct admit from drupal developer's office secondary to acute exacerbation of congestive heart failure and recent 20 lb weight gain * PMHx significant for Diastolic HF, T2DM (insulin dependent), CKD-III, HTN, HLD, H/o DVT, Osteoarthritis * Patient is on Toujeo at home which will be converted to Lantus inpatient * Patient is significantly volume overloaded with 2+ pitting edema to bilater lower extremities, + JVD, + orthopnea * Started on Bumex 2 mg IV BID * Volume overload can contribute to poor insulin absorption PLAN FOR INPATIENT GLYCEMIC CONTROL: * Basal insulin - increase by 10% * Lantus 45 units SQ qHS * Bolus insulin - tighten CF/CR further * NovoLog per scale ACHS or Q6hrs while NPO * Goal Range: Low 110 mg/dL - High 140 mg/dL * Correction Factor: 10 mg/dL/unit * Nutritional / Prandial insulin per carb ratio of 1 unit per 3 grams CHO consumed PLAN FOR DISCHARGE: * A1c 9.3% on 03/13/19 * Goal A1c < 8% based on age/comorbidities * CDE spoke with patient on Saturday. Patient reports stopping his Victoza because he did not see an improvement. [facility] nurse navigator already notified to scheduled outpatient f/u on discharge. * Recommend to resume outpatient regimen on discharge (including Victoza if patient willing) and patient can f/u as an outpatient.
--- NOTE | 2019-03-15 12:38 | Hospitalist Progress Note ---
Date of Service March 15, 2019 Assessment & Plan (1) Acute on chronic diastolic CHF (congestive heart failure): - Presented with increased LE edema, symptoms c/w CHF exacerbation. LE edema is resolving, Cr trending up -- pt. appears euvolemic. - Echo showed EF 55-60%, no WMA, moderate LVH and no valvular abnormalities. - Monitor daily weights and I/Os -- weight improved by ~8 kg since admission. - Low Na, fluid restriction of 1500 cc. - Was receiving Bumex 2 mg IV BID; will hold diuretics this morning as Cr is trending up and pt. appears euvolemic. Can likely start PO diuretics tomorrow if renal function is stable. - Continue Coreg and Losartan as prescribed. - Follows with Dr. Horta from [facility]. Cardio consulted as inpatient. (2) Diabetes mellitus with complication, with long-term current use of insulin: - A1C is 9.3, previously 8.5. - Lantus with SSI coverage - pharmacy following for glycemic control. (3) Diabetic nephropathy: - Continue to follow, Creatinine trending up slightly - likely related to IV diuresis. (4) Diabetic neuropathy: - Continue Methocarbamol 500 mg TID prn, Gabapentin 400 mg TID & Voltaren gel prn. (5) Diabetic retinopathy, nonproliferative: - Follow with ophthalmology. (6) Hypercholesterolemia: - Continue statin as prescribed. (7) HTN (hypertension): - Continue Coreg 25 mg BID, Losartan 25 mg daily. (8) Chronic kidney disease, stage III (moderate): - Follows with nephro as outpatient. - Creatinine is rising in setting of IV diuresis (see above) (9) Hypothyroidism: - TSH 2.12; continue home Levothyroxine. (10) Anemia of chronic disease: - In setting of CKD. - Monitor CBC frequently. (11) Mild sleep apnea: - Pt. reports he was diagnosed with mild sleep apnea but has not used CPAP at home. - Currently refusing CPAP machine qhs. (12) Vitamin D deficiency: - Continue supplementation. DVT ppx: Heparin q12hr. Dispo: Med/surg; continue treatment for CHF exacerbation. Can likely discharge to home on Saturday with PO diuretics pending renal function. Subjective Pt. reports calf edema is greatly improved. Weight is down ~8 kg, net negative 6,500. Creatinine trending up, held IV Bumex this morning. Cardiology following, will base diuretic regimen based on recommendations. He denies chest pain, SOB. Review of Systems Review of Systems: All systems reviewed & are unremarkable except as noted in HPI & below Constitutional: no fever, no chills, no fatigue, no weakness and no anorexia Respiratory: no cough, no dyspnea, no dyspnea on exertion and no wheezing Cardiovascular: no chest pain, no palpitations and no edema Gastrointestinal: no abdominal pain, no nausea and no constipation Genitourinary: no difficulty urinating Musculoskeletal: no back pain and no joint pain Integumentary: no non-healing lesions Physical Exam Physical Exam: General: Resting comfortably HEENT: NC/AT; PERRLA with EOMI; [place] conjunctiva, MMM. No erythema of posterior pharynx Neck: Supple and nontender Cardiac: RRR Lungs: on room air; CTA Abdomen: Bowel normoactive X 4; Nontender to palpation Extremities: Warm. +1 bilat calf edema. Neuro: No focal weakness Skin: No rash Results & Data Vital Signs (Past 12 Hours) Vital Signs Temp Pulse Resp BP Pulse Ox 03/15/19 07:25 36.5 C 70 18 126/71 90 Laboratory Results 03/15/19 03/15/19 03/15/19 Range/Units 11:53 08:05 05:20 WBC (4.8-10.8) K/uL RBC (4.7-6.1) M/uL Hgb (14.0-18.0) g/dL Hct (42-52) % MCV (80-100) fL MCH (25-34) pg MCHC (32-36) g/dL RDW Std Deviation (36.4-46.3) fL RDW Coeff of Milly (11.5-14.5) % Plt Count (130-400) K/uL MPV (7.4-10.4) fL Immature Gran % (Auto) % Neut % (Auto) % Lymph % (Auto) % [place] % (Auto) % Eos % (Auto) % Baso % (Auto) % Immature Gran # (Auto) (0.00-0.02) K/uL Neut # (Auto) (1.4-6.5) K/uL Lymph # (Auto) (1.2-3.4) K/uL [place] # (Auto) (0.11-0.59) K/uL Eos # (Auto) (0-0.5) K/uL Baso # (Auto) (0-0.2) K/uL Sodium 136 (136-145) mmol/L Potassium 4.2 (3.5-5.1) mmol/L Chloride 101 (98-107) mmol/L Carbon Dioxide 33 H (21-32) mmol/L Anion Gap 2.0 L (3-11) BUN 33 H (7-18) mg/dl Creatinine 2.02 H (0.6-1.4) mg/dl Est Cr Clr Drug Dosing 52.8 ml/min Est GFR ( Amer) 39.5 Est GFR (Non-Af Amer) 34.1 BUN/Creatinine Ratio 16.5 (10-20) Glucose 147 H (70-99) mg/dl POC Glucose 269 H 140 H (70-99) Calcium 8.9 (8.5-10.1) mg/dl Total Bilirubin 0.4 (0.2-1) mg/dl AST 28 (15-37) U/L ALT 30 (12-78) U/L Alkaline Phosphatase 70 (45-117) U/L Total Protein 6.9 (6.4-8.2) gm/dl Albumin 3.0 L (3.4-5.0) gm/dl Globulin 3.9 (2.5-4.0) gm/dl Albumin/Globulin Ratio 0.8 L (0.9-2) 03/15/19 03/14/19 03/14/19 Range/Units 05:20 20:05 16:31 WBC 8.34 (4.8-10.8) K/uL RBC 3.96 L (4.7-6.1) M/uL Hgb 11.1 L (14.0-18.0) g/dL Hct 33.6 L (42-52) % MCV 84.8 (80-100) fL MCH 28.0 (25-34) pg MCHC 33.0 (32-36) g/dL RDW Std Deviation 48.3 H (36.4-46.3) fL RDW Coeff of Milly 15.5 H (11.5-14.5) % Plt Count 238 (130-400) K/uL MPV 9.6 (7.4-10.4) fL Immature Gran % (Auto) 0.4 % Neut % (Auto) 69.1 % Lymph % (Auto) 17.0 % [place] % (Auto) 10.2 % Eos % (Auto) 3.2 % Baso % (Auto) 0.1 % Immature Gran # (Auto) 0.03 H (0.00-0.02) K/uL Neut # (Auto) 5.76 (1.4-6.5) K/uL Lymph # (Auto) 1.42 (1.2-3.4) K/uL [place] # (Auto) 0.85 H (0.11-0.59) K/uL Eos # (Auto) 0.27 (0-0.5) K/uL Baso # (Auto) 0.01 (0-0.2) K/uL Sodium (136-145) mmol/L Potassium (3.5-5.1) mmol/L Chloride (98-107) mmol/L Carbon Dioxide (21-32) mmol/L Anion Gap (3-11) BUN (7-18) mg/dl Creatinine (0.6-1.4) mg/dl Est Cr Clr Drug Dosing ml/min Est GFR ( Amer) Est GFR (Non-Af Amer) BUN/Creatinine Ratio (10-20) Glucose (70-99) mg/dl POC Glucose 205 H 181 H (70-99) Calcium (8.5-10.1) mg/dl Total Bilirubin (0.2-1) mg/dl AST (15-37) U/L ALT (12-78) U/L Alkaline Phosphatase (45-117) U/L Total Protein (6.4-8.2) gm/dl Albumin (3.4-5.0) gm/dl Globulin (2.5-4.0) gm/dl Albumin/Globulin Ratio (0.9-2) 03/14/19 Range/Units 13:06 WBC (4.8-10.8) K/uL RBC (4.7-6.1) M/uL Hgb (14.0-18.0) g/dL Hct (42-52) % MCV (80-100) fL MCH (25-34) pg MCHC (32-36) g/dL RDW Std Deviation (36.4-46.3) fL RDW Coeff of Milly (11.5-14.5) % Plt Count (130-400) K/uL MPV (7.4-10.4) fL Immature Gran % (Auto) % Neut % (Auto) % Lymph % (Auto) % [place] % (Auto) % Eos % (Auto) % Baso % (Auto) % Immature Gran # (Auto) (0.00-0.02) K/uL Neut # (Auto) (1.4-6.5) K/uL Lymph # (Auto) (1.2-3.4) K/uL [place] # (Auto) (0.11-0.59) K/uL Eos # (Auto) (0-0.5) K/uL Baso # (Auto) (0-0.2) K/uL Sodium (136-145) mmol/L Potassium (3.5-5.1) mmol/L Chloride (98-107) mmol/L Carbon Dioxide (21-32) mmol/L Anion Gap (3-11) BUN (7-18) mg/dl Creatinine (0.6-1.4) mg/dl Est Cr Clr Drug Dosing ml/min Est GFR ( Amer) Est GFR (Non-Af Amer) BUN/Creatinine Ratio (10-20) Glucose (70-99) mg/dl POC Glucose 278 H (70-99) Calcium (8.5-10.1) mg/dl Total Bilirubin (0.2-1) mg/dl AST (15-37) U/L ALT (12-78) U/L Alkaline Phosphatase (45-117) U/L Total Protein (6.4-8.2) gm/dl Albumin (3.4-5.0) gm/dl Globulin (2.5-4.0) gm/dl Albumin/Globulin Ratio (0.9-2) PG Care Time/CCT Total # of Minutes Spent Total Time Spent with Patient: Total time spent is greater than 50% in coordination of care (as documented) at patient's floor/unit and/or counseling patient:
[2019-03-15] MEDS: SENNA 8.6 MG TAB PO SCH (14:15)
--- NOTE | 2019-03-15 15:48 | Cardiology Progress Note ---
Date of Service March 15, 2019 Subjective Patient stable improving everyday with noted significant LE swelling improved. No noted symptoms of CP,SOB or palpitations. Review of Systems Review of Systems: All systems reviewed & are unremarkable except as noted in HPI & below Results & Data Vital Signs (Past 12 Hours) Vital Signs Temp Pulse Resp BP Pulse Ox 03/15/19 07:25 36.5 C 70 18 126/71 90 1. HFpEF : Agree with holding diuretics today given bump in Cr. Would also d/c fluid restriction. Reassess volume status Cr. electrolytes tomorrow. Monitor I/O's. daily weights.Daily BMP. Weight down 8 Kg since admission and clinically significantly improved. Recommend Bumex 1mg po q daily tomorrow in anticipation of discharge which could be tomorrow. He will follow up with Dr. Eric Horta in next week for further outpatient care and can make adjustments in diuretic regimen as needed.
[2019-03-15] MEDS: bisacodyL 5 MG TABEC PO SCH (20:34)
[2019-03-15] MEDS ORDERED: INSULIN GLARGINE SOLOSTAR 100 UNITS/ML 3 ML PEN SC SCH (21:00)
[2019-03-16] MEDS: OXYCODONE HCL IR 5 MG TAB (IMMEDIATE RELEASE) PO PRN ×4 (00:01→12:35)
[2019-03-16] MEDS: LEVOTHYROXINE SODIUM 50 MCG TABLET PO SCH (06:00)
[2019-03-16 07:00] LABS: BUN Creatinine Ratio 18.4 (10-20); Creatinine Clr Calc Pharmacy 56.5 ml/min; Est GFR (African American) 42.8; Est GFR (Non-African American) 36.9; Potassium 4.4 mmol/L (3.5-5.1)
[2019-03-16] MEDS: LOSARTAN POTASSIUM 25 MG TAB PO SCH (08:24)
[2019-03-16] MEDS: ASPIRIN 81 MG ECTAB PO SCH (08:24)
[2019-03-16] MEDS: carvediloL 25 MG TAB PO SCH (08:24)
[2019-03-16] MEDS: ATORVASTATIN 40 MG TAB PO SCH (08:24)
[2019-03-16] MEDS: CHOLECALCIFEROL 1,000 UNITS 25 MCG TAB PO SCH (08:25)
[2019-03-16] MEDS: GABAPENTIN 400 MG CAP PO SCH ×2 (08:25→12:31)
[2019-03-16] MEDS: DICLOFENAC SOD 1% GEL 100 GM TUBE EXT SCH ×3 (08:25→12:31)
[2019-03-16] MEDS: INSULIN ASPART 100 UNITS/ML 3 ML PEN SC SCH ×2 (08:29→12:30)
[2019-03-16] MEDS: HEPARIN SOD 5,000 UNIT/0.5 ML VIAL SQ SCH (08:30)
[2019-03-16] MEDS ORDERED: BUMETANIDE 1 MG TAB PO SCH (09:00)
[2019-03-16] MEDS: SENNA 8.6 MG TAB PO SCH (10:12)
--- NOTE | 2019-03-16 10:22 | Pharmacy Report ---
Pharmacy Glycemic Short Note 2 - Date of Service March 16, 2019 - Glycemic Short BSG Results (Last 24 hours): 03/15/19 03/15/19 03/15/19 11:53 17:37 20:18 Glucose POC Glucose 269 H 134 H 224 H 03/16/19 03/16/19 05:55 07:47 Glucose 174 H POC Glucose 151 H OUTPATIENT ANTIDIABETIC REGIMEN: * Victoza 1.2 mg subcutaneously once weekly - patient stopped taking this * Toujeo 65 units subcutaneously at night before bed * Novolog 25 units subcutaneously with meals and snacks + SSI (adds 3 units depending on BSG per patient) * A1c = 8.5% (12/19/2018) ASSESSMENT: Pt received 107 units of insulin yesterday, 03/15. Roughly 50/50 split bt basal/bolus. FBS is reasonable today, 151. No acute change in insulin requirements are anticipated. We will continue with current insulin orders. PLAN FOR INPATIENT GLYCEMIC CONTROL: * Basal insulin * Lantus 45 units SQ qHS * Bolus insulin * NovoLog per scale ACHS or Q6hrs while NPO * Goal Range: Low 110 mg/dL - High 140 mg/dL * Correction Factor: 10 mg/dL/unit * Nutritional / Prandial insulin per carb ratio of 1 unit per 3 grams CHO consumed PLAN FOR DISCHARGE: * A1c 9.3% on 03/13/19 * Goal A1c < 8% based on age/comorbidities * CDE spoke with patient on Saturday. Patient reports stopping his Victoza because he did not see an improvement. [facility] [place] navigator already notified to scheduled outpatient f/u on discharge. * Recommend to resume outpatient regimen on discharge (including Victoza if patient willing) and patient can f/u as an outpatient.
--- NOTE | 2019-03-16 13:10 | Cardiology Progress Note ---
Date of Service March 16, 2019 Subjective Patient seen today and is without any c/o CP ,SOB palpitations. He notes swelli ng in legs much better. Review of Systems Review of Systems: All systems reviewed & are unremarkable except as noted in HPI & below Physical Exam Physical Exam: Gen: AAOx3 in NAD pleasant HEENT :NCAT Neck : supple No JVD Lungs :CTA b/l CV : RRR no M/R/G Abd: soft NT,ND +BS Ext: mild LE edema b/l Neuro : grossly non-focal Results & Data Vital Signs (Past 12 Hours) Vital Signs Temp Pulse Resp BP Pulse Ox 03/16/19 11:34 36.8 C 69 18 119/68 93 03/16/19 07:39 36.8 C 69 18 119/68 93 HFpEF- Pt down approximately 9 Kg since admission. Set for discharge and with f/u with Dr. Horta. Can go out on bumex 1 mg po q daily and will adjusted as needed by Dr. Horta.
--- NOTE | 2019-03-16 17:34 | Discharge Summary ---
Date of Service March 16, 2019 Admission HPI Per Admitting Provider Patient is a 63 years old male with past medical history of hypertension, hypercholesterolemia,CKD stage III, osteoarthritis, vitamin D deficiency, diabetes mellitus type 2 with diabetic neuropathy and nephropathy, hy pothyroidism who was sent by his seed pelleter Dr. Horta to be directly admitted to the PCU on telemetry for volume overload and recent gain of 20 pounds associated with acute exacerbation of congestive heart failure. Patient has chronic diastolic heart failure. Patient was admitted to [facility] in August 2018 with hypotension and acute renal failure with a creatinine greater than 4. His diuretics at that time were held. Patient continued to follow-up with cardiac rehabilitation. Patient was started on Nutri system and again a 10 pounds. He then took furosemide for 2 to 3 days and lost 10 pounds of water weight. He still has some chronic mild lower extremity edema. Patient denies any PND, orthopnea although when his weight is up he was having symptoms of orthopnea. He did not denies any chest pain, chest pressure or chest heaviness. Patient denies palpitations or fluttering or feeling his heart racing. Patient denies a cough, fever, chills, headache, sweats, melena, hematuria, dysuria. Today labs are pending, chest x-rays and echocardiogram. Patient had mild sleep apnea. Director Orange recommended CPAP at night. He also recommended to start patient on Bumex 2 mg twice daily and ARB-s. Last echocardiogram is from July 2017 which shows ejection fraction of 65%, normal LV size and systolic function with no regular wall motion abnormalities. Ejection fraction 65%. Mild concentric left ventricular hypertrophy grade 2 diastolic dysfunction of the left ventricle, elevated left atrial pressure. Admission Exam Per Admitting Provider Constitutional: WD/WN, vitals as above well developed and + morbidly obese Eyes: PERRL, conjunctivae normal, anicteric sclerae ENMT: external ear and nose normal, oropharynx normal Neck: trachea midline, no thyromegaly Respiratory: normal respiratory effort, lungs clear to auscultation Cardiovascular: Rate/Rhythm: regular rate and regular rhythm Heart Sounds: normal S1 and normal S2 Palpation: + palpable S3 Vessels: + JVD and dorsalis pedis pulses present Extremities: + pedal edema Gastrointestinal (Abdomen): normal bowel sounds, soft, nontender, no hepatosplenomegaly Musculoskeletal: no cyanosis or clubbing, extremities motor strength 5/5 Neurologic: patellar DTR's 2+ bilat, sensation intact Psychiatric: A+Ox3, euthymic affect Lymphatic: no cervical or axillary lymphadenopathy Principal Diagnosis Acute CHF Discharge Exam General: Resting comfortably HEENT: NC/AT; PERRLA with EOMI; [place] conjunctiva, MMM. No erythema of posterior pharynx Neck: Supple and nontender Cardiac: RRR Lungs: on room air; CTA Abdomen: Bowel normoactive X 4; Nontender to palpation Extremities: Warm. Mild bilat calf edema, ankle edema noted. Neuro: No focal weakness Skin: No rash Discharge Data Allergies Allergy/AdvReac Type Severity Reaction Status Date / Time No Known Drug Allergies Allergy Unknown . Verified 01/21/19 10:37 Ordered Studies CXR on day of admission Hospital Course (1) Acute on chronic diastolic CHF (congestive heart failure): Presented with increased LE edema, symptoms c/w CHF exacerbation. LE edema is resolving & renal function stable -- pt appeared euvolemic on day of discharge. Echo showed EF 55-60%, no WMA, moderate LVH and no valvular abnormalities. Monitored daily weights and I/Os -- weight improved by ~8 kg since admission. Low Na diet following discharge. Was receiving Bumex 2 mg IV BID; held diuretics on 03/15 due to uptrending Cr level; will continue Bumex 1 mg PO daily at home. Continued Coreg and Losartan as prescribed. Follows with Dr. Horta from [facility]. F/u in clinic as scheduled. (2) Diabetes mellitus with complication, with long-term current use of insulin: A1C is 9.3, previously 8.5. Naif with [facility] coverage - pharmacy consulted for glycemic control. F/u with PCP to discuss blood glucose management. (3) Diabetic nephropathy: Creatinine trended up slightly on 03/15, likely related to IV diuresis. At baseline on day of discharge. (4) Diabetic neuropathy: Continued Methocarbamol 500 mg TID prn, Gabapentin 400 mg TID & Voltaren gel prn. (5) Diabetic retinopathy, nonproliferative: Follows with ophthalmology. (6) Hypercholesterolemia: Continued statin as prescribed. (7) HTN (hypertension): Continued Coreg 25 mg BID, Losartan 25 mg daily. (8) Chronic kidney disease, stage III (moderate): Follows with nephro as outpatient. (9) Hypothyroidism: TSH 2.12; continued home Levothyroxine. (10) Anemia of chronic disease: In setting of CKD (11) Mild sleep apnea: Refusing CPAP machine qhs. (12) Vitamin D deficiency: Continued supplementation. Discharged to home on 03/16/19. Total Time Total Time Spent Total Time Spent (In Minutes): >30 minutes Total Time Includes: Examination of the Patient, Discharge Planning, Medication Reconciliation, Communication With Other Providers and Other Discharge Plan Discharge Items Patient Disposition: Home - Self-Care Reason For Visit: CHF Discharge Diagnosis: Acute on Chronic Congestive Heart Failure Condition on Discharge: Good Goals: You have been hospitalized for an acute medical problem. During your stay at [facility], we have made an effort to correct the problem that brought you to the hospital while keeping you as comfortable as possible. Medications were used to bring your condition under control and your discharge instructions will include directions for any medications you should take after leaving the hospital. Please make sure you see your Primary Care Provider as part of your follow up plan. Activity: As commented below Exercise/Sports: Gradually increase as tolerated Non-emergency contact: Primary Care Provider and Director Orange Call non-emergency contact if: you have any medication questions, your symptoms worsen and you have a fever Follow-up/Referrals: Michoacano Villegas DO [Physician] - 03/19/19 11:00 am Pura Griffin PA-C [Nurse Practitioner] - 03/20/19 9:00 am (An appointment has been made on your behalf with a provider at your PCP office. Please call the office with any questions or concerns. ) Diet: Carb Consistent or DM2 and Low Potassium (2gm) Addtl Attending Provider Instructions: 1. Acute on chronic diastolic heart failure * Please take Bumex 1 mg by mouth daily at home. * Refer to additional heart failure instructions as noted below. * Continue low sodium, carb consistent diet at home. * You will need to follow up with cardiology as an outpatient. 2. Diabetes Mellitus * Please resume home meds as prescribed. * F/u with PCP to discuss blood sugar control. 3. Chronic Kidney Disease * Please follow up with Dr. Villegas as scheduled on 03/19/19. Congestive Heart Failure: Discharge Instructions Congestive Heart Failure essentially means your heart is able to have a "traffic jam" of fluid that backs up into your lungs. Fluid in lungs then blocks up breathing space making you feel short of breath. In the hospital, our job is to get the fluid off so that you are able to breathe better, and then get you back on track with medication and lifestyle adjustments to keep the traffic jam from happening again. Salt (Sodium) The vast majority of people admitted to the hospital with fluid back up into the lungs get there because of too much salt in their diet. The way our kidneys work: when you take a small amount of sodium, your kidneys hold onto a small amount of water. When you take a large amount of sodium, your kidneys hold onto a large amount of water. When this happens, your blood vessels get flooded, your heart gets overfilled, and the fluid backs up into your lungs. Most people know to avoid the salt shaker, but sodium is in almost anything prepackaged/prepared, as a preservative or as a flavoring agent. Most of the people we take care of who are here with congestive heart failure caused by too much sodium do not use a salt shaker at all. Get into the habit of looking at food labels, so you can see how much sodium is in the foods you eat. The most important number to look at is how much sodium is in each serving. But also notice the size of a serving. [employer] will frequently make a serving size so tiny that it does not look like there is much sodium per serving, but a normal person might eat 3 or 4 servings of the food and take in a lot more sodium than they realized. Keep a "budget" of how much sodium you take in in each day. Most people stay out of trouble and stay out of the hospital as long as they stay "under budget". The majority of congestive heart failure patients do well if they take less than 2000 mg of sodium a day. Because our kidneys retain water based on how much sodium they are seeing in any given moment, it is also important to stay at less than about 500 mg in any given meal. This is because even if you stayed at less than 2000 mg of sodium, but ate it all at once, your kidneys would retain fluid at a rate as though you are taking in much more sodium than you actually are. Occasionally your doctor may specifically recommend restricting even further (such as less than 1500mg per day) so if you have been told to be even stricter with sodium, please follow that advice. -Following How You Are Doing (Wet Versus Dry) Because managing congestive heart failure is an ongoing process, it is very important to learn how to follow your signs and symptoms and track how you are doing at home. This will allow you to catch problems before they become a big deal. In general, as your health care team, we look at managing congestive heart failure chronically as a balance of being "wet" (flooded with fluid) versus being "dry" (dehydrated from treatment). Wet - signs of fluid retention that would warrant further evaluation: Check your weight daily. If your weight goes up by more than 2 pounds in 1 day, it is almost certainly fluid related. This should warrant further thought, and/or a call to your doctor Follow your breathingmost of the time, early on when fluid backs up into your lungs, you will first start to notice shortness of breath when walking, or when lying flat. If you notice either of these, this should warrant further thought, and/or a call to your doctor If you notice both an increase in weight and worsening breathing, that definitely warrants getting seen as soon as possible "Dry"while the goal of managing the disease is to keep you from getting "wet, the medications can sometimes cause a degree of dehydration. Most people with congestive heart failure need frequent lab work (basic metabolic panel). Generally when there has been a change in diuretic dosing (a change in the water pill) or any other major changes, lab work should be followed closely and more frequently afterwards. This is because lab work will frequently show early signs of dehydration before you start to feel bad. Frequent symptoms of being dehydrated include: feeling weak and lightheaded, having lower blood pressures, making less urine than usual, or having a very dry mouth. If you notice any of these signs/symptoms, and you are not due for lab work, it would be quite reasonable to call your doctor to see if lab work or a visit could be arranged. Heart Failure Management Checklist: Limit Salt (Sodium) Intake to 2000mg (2g) per day and 500mg (0.5g) per meal Check weight daily (in same clothes, without shoes) every morning Use the provided chart to enter your weight and salt intake for the day Are you too wet? If you gained 2lb or more - make sure to take your water pill If your breathing is not good (you are more short of breath than usual) call your doctor regardless of weight change If you gained 2lb or more and you are short of breath, see your doctor or come to the emergency room Are you too dry? If you feel weak or lightheaded, have lower blood pressures, make less urine than usual, or have a very dry mouth. Call your doctor Pending Studies at Discharge: No Stand-Alone Forms: My [facility] Medications and DC Order Prescriptions: New bumetanide 1 mg Tablet 1 mg PO QAM 30 Days Qty: 30 RF: 2 Continued gabapentin 400 mg capsule 400 mg PO TID Qty: 180 RF: 5 atorvastatin 40 mg tablet 40 mg PO DAILY Qty: 30 RF: 11 sennosides 8.6 mg tablet 8.6 mg PO DAILY Qty: 30 RF: 10 (DME) lancets [OneTouch UltraSoft Lancets] misc See Dose Instructions .ROUTE .MEDSUPPLY Qty: 50 RF: 0 aspirin 81 mg tablet 81 mg PO DAILY Qty: 30 RF: 0 losartan 25 mg tablet 25 mg PO DAILY RF: 0 carvedilol 25 mg tablet 25 mg PO BID Qty: 60 RF: 5 levothyroxine 25 mcg tablet 25 mcg PO DIRECTED Qty: 45 RF: 5 cholecalciferol (vitamin D3) 2,000 unit tablet 2,000 units PO DAILY Qty: 90 RF: 0 diclofenac sodium 1 % gel 1 % topical DIRECTED Qty: 100 RF: 0 (DME) pen needle, diabetic [BD Ultra-Fine Mini Pen Needle] 31 gauge x 3/16" needle See Dose Instructions .ROUTE .MEDSUPPLY Qty: 50 RF: 0 oxycodone 10 mg tablet 10 mg PO Q4H PRN (Reason: Pain) Qty: 30 RF: 0 methocarbamol 500 mg tablet 500 mg PO TID PRN (Reason: BACK TIGHTNESS) Qty: 90 RF: 0 Victoza 3-Joshua 0.6 mg/0.1 mL (18 mg/3 mL) pen injector 1.2 mg subcut DIRECTED Qty: 9 RF: 0 Novolog Flexpen U-100 Insulin 100 unit/mL (3 mL) insulin pen See Rx Instructions subcut DIRECTED RF: 0 Toujeo Max U-300 SoloStar 300 unit/mL (3 mL) insulin pen See Rx Instructions SUBCUT DIRECTED RF: 0 Discontinued furosemide 40 mg tablet 40 mg PO DAILY Qty: 30 RF: 3 Discharge Orders: Discharge Order (Routine); Ordered 03/16/19 Ordered By: Risa Gaviria/Other Patient Handouts: Hyperglycemia, Diabetes Manage A1C Test Admission Data Admit Date/Time: 03/12/19 13:23 Attending Provider: Doug Looney Admit Provider: Doug Looney Primary Care Provider: Tran Harris Other Interventions: Discharge Summary Assessment (RN) Last Done: 03/16/19 11:34 DC Date/Time DO NOT enter until pt leaves facility: 03/16/19 13:05 Supervising Physician Co-Signing Physician Notes I have seen and examined patient followed by Risa Holliday PA-C and I agree with the discharge summary.
== END 2019-03-16 13:05 | disposition home or self-care (01) | DRG 291 ==
LOC: 2S 13:23 → SUATTDRO 13:23 → 4W 03-13 12:31